=== PATIENT | male | born 1990 | race Caucasian/White ===

== ENCOUNTER 2017-08-06 06:51 | Emergency (ER) | payer SELFPAY ==
[2017-08-06 07:39] LABS: Absolute Lymphocytes (CBC) 1.7 K/uL (0.7-4.9); Absolute Monocytes 0.5 K/uL (0.1-1.3); Basophils % 1.3 % (0-1.3); Eosinophils % 6.3 % (0-4.4); Hematocrit 43.1 % (39.6-49.0); Lymphocytes % 31.2 % (15.3-44.8); MCV 89.5 fL (80-100); MPV 7.6 fL (7.6-11.3); Monocytes % 8.1 % (3.3-12.3); RBC Red Blood Cell Count 4.81 M/uL (4.33-5.43)
[2017-08-06] MEDS ORDERED: NA CHLORIDE 0.9% 1,000 ML ONE ×2 (08:19→10:09)
[2017-08-06 09:05] LABS: Bicarbonate 27 mEq/L (21-31); Glucose Level 101 mg/dL (65-120); Potassium 3.7 mEq/L (3.6-5.0); Sodium Level 140 mEq/L (135-145)
[2017-08-06 09:11] LABS: ALT/SGPT 77 IU/L (10-60); AST/SGOT 60 IU/L (10-42); Albumin 3.6 g/dL (3.2-5.5); Alkaline Phosphatase 152 IU/L (42-121); BUN Blood Urea Nitrogen 8 mg/dL (6-20); Bilirubin Direct 0.1 mg/dL (0-0.2); Bilirubin Total 0.3 mg/dL (0.3-1.2); Protein, Total 8.5 g/dL (6.0-8.3)
[2017-08-06 09:25] LABS: Alcohol Serum/Plasma 272 mg/dl
[2017-08-06 09:58] LABS: Urine Blood NEGATIVE (NEG); Urine Glucose NEGATIVE (NEG); Urine Protein NEGATIVE (NEG); Urine Specific Gravity 1.025 (1.005-1.030); Urine pH 5.5 (5.0-7.0)
[2017-08-06 10:02] LABS: Barbiturates NEGATIVE; Benzodiazepines NEGATIVE; Cocaine NEGATIVE; METHAMPHETAM NEGATIVE; Opiates NEGATIVE; Phencyclidine NEGATIVE; THC Cannibis NEGATIVE
--- NOTE | 2017-08-06 16:16 | ER ---
Nurse's Notes [facility] Name: Lobito Pack Age: 26 yrs Sex: Male : 1990 Arrival Date: 08/06/2017 Time: 06:52 Bed 17 Private MD: Diagnosis: Suicidal ideations;Major depressive disorder, recurrent Presentation: 08/06 06:56 Presenting complaint: EMS states: "Patient called [facility] department due to having bs1 suicidal thoughts, planning for a month now, after taking 6 beers, patient has a hx of anxiety and recently diagnosed with pericarditis on Saturday.". Transition of care: patient was not received from another setting of care. Onset of symptoms was August 06, 2017. Care prior to arrival: None. 06:56 Method Of Arrival: EMS: [facility] bs1 06:56 Acuity: LEON 2 bs1 Triage Assessment: 07:06 General: Appears in no apparent distress. comfortable, Behavior is cooperative, quiet. ch Pain: Denies pain. Neuro: No deficits noted. Level of Consciousness is awake, alert, obeys commands, Oriented to person, place, time, situation, Planer Setter are equal bilaterally Moves all extremities. Full function Gait is steady, Speech is normal, Facial symmetry appears normal, Facial symmetry: tongue is midline, Pupils are PERRLA, Reports pt states he wants to kill himself, it has not gotten any better since he was last here. [facility] cannot see him till september 16. pt states he would take a 38 and shoot himself, but he didn't want his sister to find that. so then he would go to work and jump off the top of a tower. pt has not been taking his medications, states "they were distroyed". Respiratory: Airway is patent Respiratory effort is even, unlabored. GI: No signs and/or symptoms were reported involving the gastrointestinal system. Derm: Skin is pink, warm \\T\\ dry. 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 - Social history:: Smoking status: Patient uses tobacco products, 4 cigs per day. Screenin:52 Abuse screen: Denies threats or abuse. Denies injuries from another. Nutritional ch screening: No deficits noted. Tuberculosis screening: No symptoms or risk factors identified. Fall Risk None identified. Assessment: 07:14 Reassessment: Report given to RONA Gallardo. bs1 08:40 Reassessment: Patient appears in no apparent distress at this time. Patient and/or ch family updated on plan of care and expected duration. Pain level reassessed. Patient is alert, oriented x 3, equal unlabored respirations, skin warm/dry/pink. 08:41 Reassessment: pt states after eating breakfast and drinking some water that he feels ch better and wants to be discharged to his sister so that he does not lose his job. Ernesto notified, states he will talk to the pt again. 08:51 Reassessment: Patient appears in no apparent distress at this time. pt has tried to ch urinate twice, unsuccessfully. pt given fluid bolus per Ernesto. Ernesto speaks with pt, given how pt has a gun in his home and has a plan,, he does not feel comfortable discharging pt. pt verb understanding. awaiting urine sample to contact [facility]. 10:18 Reassessment: Patient appears in no apparent distress at this time. Patient and/or ch family updated on plan of care and expected duration. Pain level reassessed. Patient is alert, oriented x 3, equal unlabored respirations, skin warm/dry/pink. pt sleeping in room, awaiting pt etoh repeat prior to calling autopsy pathologist. will repeat etoh level around 1400. 12:26 Reassessment: Patient appears in no apparent distress at this time. No changes from previously documented assessment. Patient and/or family updated on plan of care and expected duration. Pain level reassessed. Patient is alert, oriented x 3, equal unlabored respirations, skin warm/dry/pink. 15:25 Reassessment: Patient appears in no apparent distress at this time. Patient and/or ch family updated on plan of care and expected duration. Pain level reassessed. Patient is alert, oriented x 3, equal unlabored respirations, skin warm/dry/pink. [facility] autopsy pathologist in room with pt. ernesto and autopsy pathologist speak with pt again. family contacted to verify if there is a gun or access to a gun in the house. pt remains on suicide precautions till ernesto states he can come off it. 16:13 Reassessment: Patient appears in no apparent distress at this time. Patient and/or ch family updated on plan of care and expected duration. Pain level reassessed. Patient is alert, oriented x 3, equal unlabored respirations, skin warm/dry/pink. pt denies SI or HI right now. family at bedside. gun is not in the home Ernesto at bedside speaking with pt. Patient states feeling better. Patient states symptoms have improved. Vital Signs: 07:06 BP 127 / 89; Pulse 85; Resp 16; Temp 98.1(O); Pulse Ox 100% on R/A; Weight 95.25 kg; bs1 Height 5 ft. 9 in. (175.26 cm); Pain 0/10; 08:41 BP 116 / 78; Pulse 81; Resp 16; Temp 98.5; Pulse Ox 99% on R/A; Pain 0/10; ch 12:27 BP 112 / 62; Pulse 76; Resp 18; Temp 97.9; Pulse Ox 98% on R/A; Pain 0/10; ch 16:13 BP 137 / 82; Pulse 88; Resp 16; Temp 98.5; Pulse Ox 99% on R/A; Pain 0/10; ch 07:06 Body Mass Index 31.01 (95.25 kg, 175.26 cm) bs1 ED Course: 06:52 Patient arrived in ED. bs1 06:56 Ernesto Jeffries PA is PHCP. jr8 06:56 Aakash Beard MD is Attending Physician. jr8 06:58 Triage completed. bs1 07:00 No apparent distress. Resting quietly. Safety Checks: Personal items have been removed ch The door is open or patient has been placed in a hallway bed/chair. There are no family/friend visitors at this time. 07:04 Inserted saline lock: 18 gauge in right antecubital area, using aseptic technique. lp1 Blood collected. 07:06 Hannah Altman RN is Primary Nurse. ch 07:06 Arm band placed on left wrist. Patient placed in an exam room, on a stretcher. ch 07:15 Safety Checks: Personal items have been removed The door is open or patient has been ch placed in a hallway bed/chair. There are no family/friend visitors at this time. 07:26 Attending Physician role handed off by Aakash Beard MD jr8 07:26 Sean Angela MD is Attending Physician. jr8 07:30 Safety Checks: Personal items have been removed The door is open or patient has been ch placed in a hallway bed/chair. There are no family/friend visitors at this time. 07:45 Safety Checks: Personal items have been removed The door is open or patient has been ch placed in a hallway bed/chair. There are no family/friend visitors at this time. 08:00 Safety Checks: Personal items have been removed The door is open or patient has been ch placed in a hallway bed/chair. There are no family/friend visitors at this time. 08:15 Safety Checks: Personal items have been removed The door is open or patient has been ch placed in a hallway bed/chair. There are no family/friend visitors at this time. 08:30 Safety Checks: Personal items have been removed The door is open or patient has been ch placed in a hallway bed/chair. There are no family/friend visitors at this time. 08:45 Safety Checks: Personal items have been removed The door is open or patient has been ch placed in a hallway bed/chair. There are no family/friend visitors at this time. 08:52 No provider procedures requiring assistance completed. 08:52 Patient has correct armband on for positive identification. Placed in gown. Bed in low ch position. Call light in reach. Side rails up X 1. 09:00 No apparent distress. Resting quietly. Safety Checks: Personal items have been removed ch The door is open or patient has been placed in a hallway bed/chair. There are no family/friend visitors at this time. 09:15 Safety Checks: Personal items have been removed The door is open or patient has been ch placed in a hallway bed/chair. There are no family/friend visitors at this time. 09:30 Safety Checks: Personal items have been removed The door is open or patient has been ch placed in a hallway bed/chair. There are no family/friend visitors at this time. 09:45 Safety Checks: Personal items have been removed The door is open or patient has been ch placed in a hallway bed/chair. There are no family/friend visitors at this time. 10:00 Safety Checks: Personal items have been removed The door is open or patient has been ch placed in a hallway bed/chair. There are no family/friend visitors at this time. 10:15 Safety Checks: Personal items have been removed The door is open or patient has been ch placed in a hallway bed/chair. There are no family/friend visitors at this time. 10:30 Safety Checks: Personal items have been removed The door is open or patient has been ch placed in a hallway bed/chair. There are no family/friend visitors at this time. 10:45 Safety Checks: Personal items have been removed The door is open or patient has been ch placed in a hallway bed/chair. There are no family/friend visitors at this time. 11:00 Safety Checks: Personal items have been removed The door is open or patient has been ch placed in a hallway bed/chair. There are no family/friend visitors at this time. 11:15 Safety Checks: Personal items have been removed The door is open or patient has been ch placed in a hallway bed/chair. There are no family/friend visitors at this time. 11:30 Safety Checks: Personal items have been removed The door is open or patient has been ch placed in a hallway bed/chair. There are no family/friend visitors at this time. 11:45 Safety Checks: Personal items have been removed The door is open or patient has been ch placed in a hallway bed/chair. There are no family/friend visitors at this time. 12:00 Safety Checks: Personal items have been removed The door is open or patient has been ch placed in a hallway bed/chair. There are no family/friend visitors at this time. 12:15 Safety Checks: Personal items have been removed The door is open or patient has been ch placed in a hallway bed/chair. There are no family/friend visitors at this time. 12:30 Safety Checks: Personal items have been removed The door is open or patient has been ch placed in a hallway bed/chair. There are no family/friend visitors at this time. 12:45 Safety Checks: Personal items have been removed The door is open or patient has been ch placed in a hallway bed/chair. There are no family/friend visitors at this time. 13:00 Safety Checks: Personal items have been removed The door is open or patient has been ch placed in a hallway bed/chair. There are no family/friend visitors at this time. 13:15 Safety Checks: Personal items have been removed The door is open or patient has been ch placed in a hallway bed/chair. There are no family/friend visitors at this time. 13:30 Safety Checks: Personal items have been removed The door is open or patient has been ch placed in a hallway bed/chair. There are no family/friend visitors at this time. 13:45 Safety Checks: Personal items have been removed The door is open or patient has been ch placed in a hallway bed/chair. There are no family/friend visitors at this time. 14:00 Safety Checks: Personal items have been removed The door is open or patient has been ch placed in a hallway bed/chair. There are no family/friend visitors at this time. 14:15 Safety Checks: Personal items have been removed The door is open or patient has been ch placed in a hallway bed/chair. There are no family/friend visitors at this time. 14:30 Safety Checks: Personal items have been removed The door is open or patient has been ch placed in a hallway bed/chair. There are no family/friend visitors at this time. 14:45 Safety Checks: Personal items have been removed The door is open or patient has been ch placed in a hallway bed/chair. There are no family/friend visitors at this time. 15:00 Safety Checks: Personal items have been removed The door is open or patient has been ch placed in a hallway bed/chair. 15:15 Safety Checks: Personal items have been removed The door is open or patient has been ch placed in a hallway bed/chair. There are no family/friend visitors at this time. 15:30 Safety Checks: Personal items have been removed The door is open or patient has been ch placed in a hallway bed/chair. There are no family/friend visitors at this time. 15:42 Safety Checks: Personal items have been removed The door is open or patient has been ch placed in a hallway bed/chair. There are no family/friend visitors at this time. 16:15 IV discontinued, intact, bleeding controlled, No redness/swelling at site. Pressure ch dressing applied. Administered Medications: 08:51 Drug: NS 0.9% 1000 ml Route: IV; Rate: 1 bolus; Site: right antecubital; ch 10:18 Drug: NS 0.9% 1000 ml Route: IV; Rate: 125 ml/hr; Site: right antecubital; Outcome: 16:15 Discharge ordered by MD. ngo 16:20 Discharged to home ambulatory, with family. 16:20 Condition: stable 16:20 Discharge instructions given to patient, family, Instructed on discharge instructions, follow up and referral plans. Demonstrated understanding of instructions, follow-up care. 16:21 Patient left the ED. Signatures: Hannah Altman RN RN Jade Ricketts RN RN lp1 Ernesto Jeffries PA PA jr8 Kylee Aguirre RN RN bs1 Corrections: (The following items were deleted from the chart) 06:59 06:56 Presenting complaint: EMS states: "Patient called EMS due to having suicidal bs1 thoughts after taking 6 beers, patient has a hx of anxiety and recently diagnosed with pericarditis on Saturday." bs1 07:07 06:56 Presenting complaint: EMS states: "Patient called [facility] due to bs1 having suicidal thoughts after taking 6 beers, patient has a hx of anxiety and recently diagnosed with pericarditis on Saturday." bs1
--- NOTE | 2017-08-06 16:16 | EDPHYS ---
Physician Documentation [facility] Name: Lobito Pack Age: 26 yrs Sex: Male : 1990 Arrival Date: 08/06/2017 Time: 06:52 Bed 17 Private MD: ED Physician Sean Angela HPI: 08/06 07:26 This 26 yrs old Male presents to ER via EMS with complaints of Suicidal jr8 Ideation. 07:26 The patient presents to the emergency department with depression, a history of jr8 substance abuse, suicide ideation, and the patient has a plan, to jump from a height to shoot self. Onset: The symptoms/episode began/occurred gradually, 2 day(s) ago. Past psychiatric history: Prior diagnosis: depression. Associated signs and symptoms: The patient has no apparent associated signs or symptoms. Severity of symptoms: At their worst the symptoms were moderate in the emergency department the symptoms are unchanged. The patient has experienced similar episodes in the past, several times. The patient has not recently seen a physician. Patient stated that they other day he wanted to shoot himself with is gun but did not. Today was contemplating going to work and jumping off of the roof. Stated that he had been feeling very depressed again. Cannot get into [facility] until the 16 of September. Currently has no more of his medications . 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 - Social history:: Smoking status: Patient uses tobacco products, 4 cigs per day. ROS: 07:26 Eyes: Negative for injury, pain, redness, and discharge, ENT: Negative for injury, jr8 pain, and discharge, Neck: Negative for injury, pain, and swelling, Cardiovascular: Negative for chest pain, palpitations, and edema, Respiratory: Negative for shortness of breath, cough, wheezing, and pleuritic chest pain, Abdomen/GI: Negative for abdominal pain, nausea, vomiting, diarrhea, and constipation, Back: Negative for injury and pain, MS/Extremity: Negative for injury and deformity, Skin: Negative for injury, rash, and discoloration, Neuro: Negative for headache, weakness, numbness, tingling, and seizure. 07:26 Psych: Positive for depression, alcohol dependence, suicidal ideation. Exam: 07:26 Eyes: Pupils equal round and reactive to light, extra-ocular motions intact. Lids and jr8 lashes normal. Conjunctiva and sclera are non-icteric and not injected. Cornea within normal limits. Periorbital areas with no swelling, redness, or edema. ENT: Nares patent. No nasal discharge, no septal abnormalities noted. Tympanic membranes are normal and external auditory canals are clear. Oropharynx with no redness, swelling, or masses, exudates, or evidence of obstruction, uvula midline. Mucous membranes moist. Neck: Trachea midline, no thyromegaly or masses palpated, and no cervical lymphadenopathy. Supple, full range of motion without nuchal rigidity, or vertebral point tenderness. No Meningismus. Cardiovascular: Regular rate and rhythm with a normal S1 and S2. No gallops, murmurs, or rubs. Normal PMI, no JVD. No pulse deficits. Respiratory: Lungs have equal breath sounds bilaterally, clear to auscultation and percussion. No rales, rhonchi or wheezes noted. No increased work of breathing, no retractions or nasal flaring. Abdomen/GI: Soft, non-tender, with normal bowel sounds. No distension or tympany. No guarding or rebound. No evidence of tenderness throughout. Back: No spinal tenderness. No costovertebral tenderness. Full range of motion. Skin: Warm, dry with normal turgor. Normal color with no rashes, no lesions, and no evidence of cellulitis. MS/ Extremity: Pulses equal, no cyanosis. Neurovascular intact. Full, normal range of motion. Neuro: Awake and alert, GCS 15, oriented to person, place, time, and situation. Cranial nerves II-XII grossly intact. Motor strength 5/5 in all extremities. Sensory grossly intact. Cerebellar exam normal. Normal gait. 07:26 Psych: Behavior/mood is cooperative, suicidal, depressed, Affect is calm, Oriented to person, place, time, Patient having thoughts of suicide. Plan for suicide is see hpi Memory is normal. Delusions/hallucinations are not present. Vital Signs: 07:06 BP 127 / 89; Pulse 85; Resp 16; Temp 98.1(O); Pulse Ox 100% on R/A; Weight 95.25 kg; bs1 Height 5 ft. 9 in. (175.26 cm); Pain 0/10; 08:41 BP 116 / 78; Pulse 81; Resp 16; Temp 98.5; Pulse Ox 99% on R/A; Pain 0/10; ch 12:27 BP 112 / 62; Pulse 76; Resp 18; Temp 97.9; Pulse Ox 98% on R/A; Pain 0/10; ch 16:13 BP 137 / 82; Pulse 88; Resp 16; Temp 98.5; Pulse Ox 99% on R/A; Pain 0/10; ch 07:06 Body Mass Index 31.01 (95.25 kg, 175.26 cm) bs1 MDM: 06:56 Patient medically screened. [facility] 16:10 Data reviewed: vital signs, nurses notes, lab test result(s), and as a result, I will [facility] discharge patient. Data interpreted: Pulse oximetry: on room air is 98 %. Interpretation: normal. Counseling: I had a detailed discussion with the patient and/or guardian regarding: the historical points, exam findings, and any diagnostic results supporting the discharge/admit diagnosis, lab results, the need for outpatient follow up, a psychiatrist, to return to the emergency department if symptoms worsen or persist or if there are any questions or concerns that arise at home. 16:11 ED course: Wen wang came and evaluated patient. After patient had sobered up felt [facility] much better. Hari tucker is at [facility] since he has been having depression problems lately. Talked with both Wen Wang and Sister of patient. Both in agreement that he can go home. Patient wants to go home so he does not lose his job. Would call and f/u with Wen Wang tomorrow. Sister would insure he stays safe at home and that he follows up. Both family and patient understand that if he worsens that he would come back for transfer to psychiatric facility . 08/06 07:05 Order name: Basic Metabolic Panel; Complete Time: 09:42 jr8 08/06 07:05 Order name: CBC with Diff; Complete Time: 08:23 jr8 08/06 07:05 Order name: ETOH Level; Complete Time: 09:42 08/06 07:05 Order name: Hepatic Function; Complete Time: 09:42 08/06 07:05 Order name: Urine Drug Screen; Complete Time: 10:13 08/06 09:42 Order name: Urine Dipstick--Ancillary (enter results); Complete Time: 10:01 ag 08/06 07:05 Order name: IV Saline Lock; Complete Time: 08:51 08/06 07:05 Order name: Labs collected and sent; Complete Time: 08:51 08/06 07:05 Order name: Urine Dipstick-Ancillary (obtain specimen); Complete Time: 10:18 08/06 07:10 Order name: Diet Regular; Complete Time: 07:11 ch 08/06 10:19 Order name: ETOH Level; Complete Time: 13:41 ch 08/06 12:22 Order name: Diet Regular; Complete Time: 12:23 ch Administered Medications: 08:51 Drug: NS 0.9% 1000 ml Route: IV; Rate: 1 bolus; Site: right antecubital; 10:18 Drug: NS 0.9% 1000 ml Route: IV; Rate: 125 ml/hr; Site: right antecubital; Disposition: 17:59 Co-signature as Attending Physician, Sean Angela MD. rn Disposition: 08/06/17 16:15 Discharged to Home. Impression: Suicidal ideations, Major depressive disorder, recurrent. - Condition is Stable. - Discharge Instructions: Depression, Adult, Helping Someone Who is Suicidal. - Work release form, Medication Reconciliation Form, Thank You Letter, Antibiotic Education, Prescription Opioid Use form. - Follow up: Private Physician; When: 1 - 2 days; Reason: Recheck today's complaints, Continuance of care, Re-evaluation by your physician. - Problem is new. - Symptoms have improved. Signatures: Dispatcher [employer] Hannah Roy, RN RN Sean Castorena MD MD rn Roszak, Josh, PA PA jr8 Kylee Aguirre RN RN bs1
== END 2017-08-06 16:21 | disposition home or self-care (01) ==
LOC: ER 06:51
DX: F32.9 Major depressive disorder, single episode, unspecified (principal); M06.9 Rheumatoid arthritis, unspecified; Z88.8 Allergy status to other drugs, medicaments and biological substances
CPT/HCPCS: 36415; 80048; 80076; 80307; 80320; 81003; 85025; 99284; J7030

== ENCOUNTER 2017-08-16 11:15 | Emergency (ER) | payer SELFPAY ==
--- OUTSIDE RECORDS SUMMARY | 2017-08-16 11:20 | XMS REPORT | Clinical Summary ---
:1990 Author Organization [facility] Address [address] [place] [address] Care Team Providers Name Role Phone Asked, No Pcp Primary Care Provider Unavailable Allergies Active Allergy Reactions Severity Noted Date Comments Haloperidol Other (See Comments) 02/03/2017 Current Medications Prescription Sig. Disp. Refills Start Date End Date Status predniSONE (DELTASONE) Indications: 150 tablet 0 02/07/2017 1 mg tabletIndications: Rheumatoid 7 Rheumatoid Arthritis Arthritis. TAKE 20 MG DAILY X 5 DAYS FOR RHEUMATOID ARTHRITIS FLARE UPS gabapentin (NEURONTIN) Take 2 capsules 180 capsule 0 02/11/2017 300 mg (600 mg total) 7 capsuleIndications: by mouth 3 anxiety (three) times a day for 30 days Indications: anxiety. risperiDONE (RisperDAL) Take 1 tablet 30 tablet 0 02/11/2017 3 MG tabletIndications: (3 mg total) by 7 Schizophrenia mouth nightly for 30 days Indications: Schizophrenia. methylPREDNISolone Indications: 1 tablet 0 02/11/2017 (MEDROL DOSEPAK) 4 mg Autoimmune 7 tabletIndications: Disease. follow Autoimmune Disease package directions nicotine (NICODERM CQ) Place 1 patch 30 patch 0 02/11/2017 7 mg/24 hrIndications: on the skin 7 Smoking Cessation daily for 30 days Indications: Smoking Cessation. hydrOXYzine (ATARAX) 25 Take 1 tablet 50 tablet 0 02/11/2017 MG tabletIndications: (25 mg total) 7 Anxiety by mouth 3 (three) times a day as needed for anxiety for up to 30 days Indications: Anxiety. Active Problems Problem Noted Date Schizophrenia 02/03/2017 Encounters Date Type Specialty Care Team Description 02/03/2017 - Hospital Encounter Psychiatry Siria Bradshaw MD 02/11/2017 Ivan Kaplan MD after 08/15/2016 Social History Tobacco Use Types Packs/Day Years Used Date Never Assessed Sex Assigned at Date Recorded Not on file Last Filed Vital Signs Vital Sign Reading Time Taken Blood Pressure 135/74 02/11/2017 6:14 AM CDT Pulse 77 02/11/2017 6:14 AM CDT Temperature 36.9 C (98.4 F) 02/11/2017 6:14 AM CDT Respiratory Rate 18 02/11/2017 6:14 AM CDT Oxygen Saturation 99% 02/11/2017 6:14 AM CDT Inhaled Oxygen Concentration - - Weight 84.6 kg (186 lb 8 oz) 02/06/2017 7:00 AM CDT Height 177.8 cm (5' 10") 02/03/2017 12:47 PM CDT Body Mass Index 26.76 02/06/2017 7:00 AM CDT Plan of Treatment Health Maintenance Due Date Last Done Comments INFLUENZA VACCINE 11/27/2017 Results XR Elbow 2 Vw Left (02/07/2017 7:15 PM) Specimen Performing Laboratory [facility] [address] [address] Narrative EXAMINATION:XR ELBOW 2 VW LEFT CLINICAL HISTORY:ARTHRITISELBOW COMPARISON:None. IMPRESSION: There is a small elbow joint effusion. There are no bony changes to suggest degenerative arthritis or obvious inflammatory arthritis otherwise. Bone mineralization is normal. There is no focal bone lesion. [facility]-[id number] Procedure Note Hm Interface, Radiology Results Incoming - 02/07/2017 9:35 PM CDT EXAMINATION: XR ELBOW 2 VW LEFT CLINICAL HISTORY: ARTHRITIS ELBOW COMPARISON: None. IMPRESSION: There is a small elbow joint effusion. There are no bony changes to suggest degenerative arthritis or obvious inflammatory arthritis otherwise. Bone mineralization is normal. There is no focal bone lesion. [facility]-[id number] CT Head Wo Contrast (02/04/2017 10:53 AM) Specimen Performing Laboratory [facility] [address] [place] [address] Narrative EXAMINATION: CT HEAD WO CONTRAST CLINICAL HISTORY: INTRACRANIAL INJURY WITHOUT FRACTURE COMPARISON:None TECHNIQUE: Noncontrast enhanced images of the brain were obtained from the skull base to the vertex. Both soft tissue and bone reconstruction algorithms were performed.CT imaging was performed with iterative reconstruction technique and/or automated exposure control to reduce radiation dose. FINDINGS: The brain parenchyma has no acute lesion. The solis-white matter differentiation is preserved. No evidence of acute intra or extra-axial hemorrhage, mass, mass effect or acute territorial infarction. There is no acute hydrocephalus. Basal cisterns are patent. Incidentally, there is an oval-shaped lesion in the superficial lobe of the left parotid gland, measuring approximately 10 mm in diameter. It has fluid density. Please consider ultrasound for additional evaluation. There is also a dense area in the superficial lobe of the right parotid gland, measuring approximately 4 mm in diameter, nonspecific, and which may also be further evaluated with ultrasound. No acute soft tissue hematoma or laceration. Paranasal sinuses shows no acute air-fluid levels.Minimal inflammatory mucosal thickening in the right frontal sinus. Mastoid air cells are clear.No skull fractures or aggressive bony lesions. IMPRESSION: No acute intracranial abnormality identified. Incidental lesion in the superficial lobe of the left parotid gland, with fluid density. This may be further evaluated with ultrasound. Please see above for additional pertinent findings, details and comments. [id number] Procedure Note Interface, Radiology Results Incoming - 02/04/2017 11:02 AM CDT EXAMINATION: CT HEAD WO CONTRAST CLINICAL HISTORY: INTRACRANIAL INJURY WITHOUT FRACTURE COMPARISON: None TECHNIQUE: Noncontrast enhanced images of the brain were obtained from the skull base to the vertex. Both soft tissue and bone reconstruction algorithms were performed. CT imaging was performed with iterative reconstruction technique and/or automated exposure control to reduce radiation dose. FINDINGS: The brain parenchyma has no acute lesion. The solis-white matter differentiation is preserved. No evidence of acute intra or extra-axial hemorrhage, mass, mass effect or acute territorial infarction. There is no acute hydrocephalus. Basal cisterns are patent. Incidentally, there is an oval-shaped lesion in the superficial lobe of the left parotid gland, measuring approximately 10 mm in diameter. It has fluid density. Please consider ultrasound for additional evaluation. There is also a dense area in the superficial lobe of the right parotid gland, measuring approximately 4 mm in diameter, nonspecific, and which may also be further evaluated with ultrasound. No acute soft tissue hematoma or laceration. Paranasal sinuses shows no acute air-fluid levels. Minimal inflammatory mucosal thickening in the right frontal sinus. Mastoid air cells are clear. No skull fractures or aggressive bony lesions. IMPRESSION: No acute intracranial abnormality identified. Incidental lesion in the superficial lobe of the left parotid gland, with fluid density. This may be further evaluated with ultrasound. Please see above for additional pertinent findings, details and comments. [id number] Urine drugs of abuse screen (02/04/2017 8:00 AM) Component Value Ref Range Amphetamine screen, urine Positive (A) Barbiturate screen, urine Negative Benzodiazepine screen, urine Negative Cannabinoid screen, urine Negative Cocaine screen, urine Negative Methadone metabolite (EDDP), urine Negative Opiates screen, urine Negative Oxycodone screen, urine Negative Phencyclidine screen, urine Negative Tricyclic screen, urine Negative Comment: Drug screen minimum concentration of detectability Oiudzewvxpay3653 ng/mL Barbiturates 200 ng/mL Pxsevspatmbnjma801 ng/mL Hyjabuq615 ng/mL Miclyuutk666 ng/mL Jxxegyc554 ng/mL Tewgivhtf897 ng/mL Phencyclidine 25 ng/mL Czkexqvyvjns98 ng/mL Wacfacxcgo5908 ng/mL Negative test results indicates presumptive evidence of lack of clinically significant drug concentration in this urine specimen. Positive test results are presumptive evidence of clinically significant drug concentration in this urine specimen. Testing performed for medical purposes only. Specimen Performing Laboratory Urine [facility] DEPARTMENT OF PATHOLOGY AND GENOMIC MEDICINE [address] [place] [id number] Syphilis treponemal IgG (02/04/2017 6:00 AM) Component Value Ref Range Syphilis treponemal IgG Non-reactiveComment: Non-reactive: No Non-reactive serological evidence of Syphilis infection Specimen Performing Laboratory Serum [facility] DEPARTMENT OF PATHOLOGY AND [facility] MEDICINE [address] [place] [address] Thyroid stimulating hormone (02/04/2017 6:00 AM) Component Value Ref Range TSH 2.25 0.27 - 4.20 uIU/mL Specimen Performing Laboratory Plasma specimen [facility] DEPARTMENT OF PATHOLOGY AND GENOMIC MEDICINE [address] [place] [address] Hemoglobin A1c (02/04/2017 6:00 AM) Component Value Ref Range Hemoglobin A1C 5.2 4.0 - 5.6 % Comment: HbA1c cutoffs for diagnosing diabetes: 4.0% - 5.6%=normal 5.7% - 6.4%=increased risk for diabetes (prediabetes) >=6.5%=diabetes Goals for glycemic control (ADA 2016) < 7.0%Target for non adults with diabetes. More or less stringent targets may be appropriate for individual patients. <7.5% Target for Children and adolescents with type 1 diabetes. Specimen Performing Laboratory Blood [facility] DEPARTMENT OF PATHOLOGY AND [facility] MED[facility] [address] [place] [address] Hepatic function panel (02/04/2017 6:00 AM) Component Value Ref Range Albumin 3.2 (L) 3.5 - 5.0 g/dL Total bilirubin 0.4 0.0 - 1.2 mg/dL Bilirubin direct <0.2 0.0 - 0.3 mg/dL Alkaline phosphatase 91 40 - 129 U/L Protein 7.5 6.3 - 8.3 g/dL Comment: 4.6-7.0 g/dL 1 week 4.4-7.6 g/dL 7 months-1year5.1-7.3 g/dL 1-2 years5.6-7.5 g/dL >3 years6.0-8.0 g/dL 18-150 6.3-8.3 g/dL ALT 47 5 - 50 U/L AST 36 10 - 50 U/L Specimen Performing Laboratory Plasma specimen [facility] DEPARTMENT OF PATHOLOGY AND GENOMIC MEDICINE [address] [place] [id number] Lipid panel (02/04/2017 6:00 AM) Component Value Ref Range Cholesterol 113 <200 mg/dL Triglycerides 62 <150 mg/dL HDL cholesterol 38 (L) >40 mg/dL LDL cholesterol 69Comment: Result obtained by direct LDL <100 mg/dL measurement Lipid panel interpretation SeeBelow Comment: Total Cholesterol (mg/dL) <200 Desirable 557-232Qdrzvrhgdf-zdyl >=240High Triglycerides (mg/dL) <150 Normal 959-073Bxeulfdsyr-cgsj 200-499High >=500Very high HDL Cholesterol (mg/dL) <40Low (male) <40Low (female) LDL Cholesterol (mg/dL) <100 Optimal 100-129Near or above optimal 370-260Ubjzoxvtxy-tvno 160-189High >=190Very high Risk Catergories that modify LDL goals. Risk CatergoriesLDL goal (mg/dL) CHD and CHD risk equivalent<100 (10-year risk >20%) Multiple (2+) risk factors <130 (10-year risk=<20%) 0-1 risk factors <160 (<10-year risk) Defining levels of lipids in metabolic syndrome Triglycerides>=150 mg/dL HDL Cholesterol Men<40 mg/dL Women<40 mg/dL Non-HDL cholesterol is a second target for therapy in persons with high triglycerides (>=200 mg/dL) Specimen Performing Laboratory Plasma specimen [facility] DEPARTMENT OF PATHOLOGY AND GENOMIC MEDICINE [address] [place] [address] ECG 12 lead (02/03/2017 7:34 PM) Component Value Ref Range Ventricular rate 79 Atrial rate 79 IL interval 146 QRSD interval 98 QT interval 388 QTC interval 444 P axis 1 59 QRS axis 1 79 T wave axis 70 EKG impression Normal sinus rhythm-Normal ECG-No previous ECGs available- Specimen Performing Laboratory [facility] [address] [place] [address] after 08/15/2016
--- OUTSIDE RECORDS SUMMARY | 2017-08-16 11:21 | XMS REPORT ---
:1990 Author Organization [facility] Address [address] [place] [address] Care Team Providers Name Role Phone UNKNOWN, REFFERING Primary Care Provider Unavailable NIKO ROSADO M.D. Unavailable Unavailable Problems This patient has no known problems. Allergies, Adverse Reactions, Alerts This patient has no known allergies or adverse reactions. Medications This patient has no known medications. Encounters Start End Encounter Admission Attending Care Care Encounter Date/Time Date/Time Type Type Clinicians Facility Department ID 2017-04-15 2017-04-19 [id number]:43:00 14:07:00 NIKO Jean M.D. Results Test Description Test Time Test Comments Text Results Atomic Results Result Comments RPR, Qual 2017-04-16 15:32:00 Test Item Value Reference Range Comments RPR (test code=RPR) Non-Reactive Non-Reactive Lipid [id number] 09:41:00 Test Item Value Reference Range Comments Cholesterol (test 155 mg/dL 0-200 code=CHOL) Triglycerides (test 137 mg/dL 9-200 code=TRIG) HDL (test code=HDL) 40 mg/dL 40-60 Chol/HDL (test 3.9 Ratio 0.0-5.0 code=CHOLPHDL) LDL, Calculated (test 88 0-130 (NOTE)RISK OF HEART code=LDLC) DISEASEPublished by [place] Heart AssociationAnalyte Optimal Boderline Increased RiskCHOL <200 200-239 >240TRIG <150 150-199 >200HDL Male: >60 <40HDL Female: >60 <50LDL <100 130-159 >160LDL NEAR OPTIMAL IS 100-129 VLDL (test code=VLDL) 27 mg/dL 5-40 LDL/HDL (test code=LDLPHDL) 2 Thyroid Stimulating Hormone (TSH)2017-04-16 09:25:00 Test Item Value Reference Range Comments TSH (test code=TSH) 2.86 mIU/mL 0.270-4.200 Alcohol/Ethanol, [id number] 08:01:00 Test Item Value Reference Range Comments Alcohol, Ethyl (test 0.14 g/dL 0.00-0.01 Intoxicated 0.080 g/dL or code=ETOH) more [id number] 04:28:00 Test Item Value Reference Range Comments Amphetamine (test code=AMPH) Negative Negative For diagnostic purposes only, positive results should always be assessedin conjunctionwith the patient's medical history,clinical examination and otherfindings.To fulfill legal requirements, a more specific alternate chemical methodmust be used inorder to obtain a Confirmed analytical result. GC/MS is the preferred confirmatory method. Barbiturates (test code=STANISLAW) Negative Negative Benzodiazepine (test Negative Negative code=SUDHIR) Cocaine (test code=COCA) POSITIVE Negative Methadone (test code=MTHD) Negative Negative Opiates (test code=OPIA) Negative Negative PCP (test code=PCP) Negative Negative Propoxyphene (test Negative Negative code=PROPOX) THC (test code=THC) Negative Negative Alcohol, Urine (test 0.32 g/dL 0.00-0.01 danny rblv code=ETOHU) Urinalysis [id number] 04:17:00 Test Item Value Reference Range Comments Color (test code=COLOR) Yellow Yellow,Straw,Pl yellow Clarity (test code=CLAR) Clear Clear Specific Pierce (test code=SPGR) 1.013 1.001-1.035 pH (test code=PH) 5.0 5.0-9.0 Ketone (test code=KET) Negative mg/dL Negative Glucose (test code=GLUCUR) Negative mg/dL Negative Protein (test code=PROT) Negative mg/dL Negative Bilirubin (test code=BILI) Negative mg/dL Negative Occult Blood (test code=UDOB) Small Negative Urobilinogen (test code=UROB) 0.2 mg/dL 0.2-1.0 Nitrite (test code=NIT) Negative Negative Leuk Esterase (test code=LEUK) Negative Negative Micros Exam (test code=MEXAM) Indicated Epithelial Cells (test code=EPI) Few /LPF 0-30 WBC, Urine (test code=UWBC) 0-5 /HPF 0-5 RBC, Urine (test code=URBC) 11-20 /HPF 0-5 Bacteria (test code=BACT) Few /HPF Comprehensive Metabolic [id number] 03:15:00 Test Item Value Reference Range Comments Sodium (test code=NA) 143 mmol/L 135-145 Potassium (test code=K) 3.9 mmol/L 3.5-5.1 Chloride (test code=CL) 102 mmol/L 98-105 Carbon Dioxide (test 28 mmol/L 22-29 code=CO2) Glucose (test code=GLU) 92 mg/dL 70-115 Blood Urea Nitrogen 8 mg/dL 6-20 (test code=BUN) Creatinine (test 0.9 mg/dL 0.7-1.2 code=CREAT) Calcium (test code=CA) 8.7 mg/dL 8.3-10.5 Prot Total (test 8.7 g/dL 6.4-8.3 code=TP) Albumin (test code=ALB) 4.3 g/dL 3.5-5.2 A/G Ratio (test 1.0 Ratio code=AGRATIO) Globulin (test 4.4 2.9-3.1 code=GLOB) Bili Total (test 0.3 mg/dL 0.1-0.9 code=TBIL) Alk Phos (test 162 U/L 40-129 code=APHOS) AST (test code=AST) 51 U/L 1-40 ALT (test code=ALT) 69 U/L 1-41 BUN/Creatinine Ratio 8.9 (test code=BCRATIO) Anion Gap (test 13 mmol/L 7-16 code=AGAP) Estimated GFR (test >60 eGFR (estimated Glomerular code=GFR) mL/min/1.73m2 Filtration Rate) is an estimated value,calculated from the patient's serum creatinine using the MDRD equation.It is NOT the patient's actual GFR. The eGFR provides a more clinicallyuseful measure of kidney disease than serum creatinine alone.This calculation takes sex and race into account, if the informationis provided. If the race is not provided, and the patient isAfrican-Omani, multiply by 1.212. If sex is not provided, and thepatient is female, multiply by 0.742. Results for patients <18 years ofage have not been validated by the MDRD study and should be interpretedwith caution.eGFR Result Interpretation:eGFR > or=60 is in the Normal RangeeGFR < 60 may mean kidney diseaseeGFR < 15 may mean kidney failureRanges recommended by the National Kidney Foundation,http://nkdep.ni h.gov CBC with [id number] 03:12:00 Test Item Value Reference Range Comments WBC (test code=WBC) 4.3 K/cumm 4.4-10.5 RBC (test code=RBC) 4.83 M/cumm 4.10-5.70 Hemoglobin (test code=HGB) 14.8 gm/dL 13.4-17.4 Hematocrit (test code=HCT) 44.7 % 38.7-52.0 MCV (test code=MCV) 92.5 fL 80-100 MCH (test code=MCH) 30.7 pg 27.0-32.5 MCHC (test code=MCHC) 33.2 g/dL 32.0-37.5 RDW (test code=RDW) 13.0 % 11.5-14.5 Platelet Count (test code=PLTCT) 247 K/cumm 140-440 MPV (test code=MPV) 6.7 fL Diff Method (test code=DIFFM) Auto Neutrophil (test code=NEUT) 42.4 % 36-70 Lymphocyte (test code=LYMPH) 37.0 % 12-44 Monocyte (test code=MONO) 9.2 % 0-11 Eosinophil (test code=EOS) 9.8 % 0-7 Basophil (test code=BASO) 1.6 % 0-2 Neutro Abs (test code=ANEUT) 1.8 K/cumm 1.6-7.4 Lymph Abs (test code=ALYMPH) 1.6 K/cumm 0.5-4.6 [place] Abs (test code=AMONO) 0.4 K/cumm 0.0-1.2 Eos Abs (test code=AEOS) 0.42 K/cumm 0.00-0.74 Baso Abs (test code=ABASO) 0.1 K/cumm 0.00-0.21 C difficile Toxins [id number] 09:05:00Specimen: StoolCollected: 01/10/2017 07 :00 Status: Final Last Updated: 01/11/2017 09:05 C DIFF TOXIN (Final) ( Final) 01/11/17 No Clostridium difficile toxin presentGlycosylated [id number] 08:05:00 Test Item Value Reference Range Comments HBA1c (test code=HBA1C) 4.8 % 4.8-5.9 RPR, [id number] 18:31:00 Test Item Value Reference Range Comments RPR (test code=RPR) Non-Reactive Non-Reactive Thyroid Stimulating Hormone (TSH)2017-01-01 10:37:00 Test Item Value Reference Range Comments TSH (test code=TSH) 1.85 mIU/mL 0.270-4.200 Lipid [id number] 10:34:00 Test Item Value Reference Range Comments Cholesterol (test 156 mg/dL 0-200 code=CHOL) Triglycerides (test 159 mg/dL 9-200 code=TRIG) HDL (test code=HDL) 47 mg/dL 40-60 Chol/HDL (test 3.3 Ratio 0.0-5.0 code=CHOLPHDL) LDL, Calculated (test 77 0-130 (NOTE)RISK OF HEART code=LDLC) DISEASEPublished by [place] Heart AssociationAnalyte Optimal Boderline Increased RiskCHOL <200 200-239 >240TRIG <150 150-199 >200HDL Male: >60 <40HDL Female: >60 <50LDL <100 130-159 >160LDL NEAR OPTIMAL IS 100-129 VLDL (test code=VLDL) 32 mg/dL 5-40 LDL/HDL (test code=LDLPHDL) 2 Alcohol/Ethanol, [id number] 09:59:00 Test Item Value Reference Range Comments Alcohol, Ethyl (test 0.09 g/dL 0.00-0.01 Intoxicated 0.080 g/dL or code=ETOH) more CBC with [id number] 02:40:00 Test Item Value Reference Range Comments WBC (test code=WBC) 4.7 K/cumm 4.4-10.5 RBC (test code=RBC) 4.66 M/cumm 4.10-5.70 Hemoglobin (test code=HGB) 14.5 gm/dL 13.4-17.4 Hematocrit (test code=HCT) 42.5 % 38.7-52.0 MCV (test code=MCV) 91.1 fL 80-100 MCH (test code=MCH) 31.0 pg 27.0-32.5 MCHC (test code=MCHC) 34.1 g/dL 32.0-37.5 RDW (test code=RDW) 12.3 % 11.5-14.5 Platelet Count (test code=PLTCT) 235 K/cumm 140-440 MPV (test code=MPV) 7.3 fL Diff Method (test code=DIFFM) Auto Neutrophil (test code=NEUT) 50.6 % 36-70 Lymphocyte (test code=LYMPH) 33.9 % 12-44 Monocyte (test code=MONO) 7.3 % 0-11 Eosinophil (test code=EOS) 7.1 % 0-7 Basophil (test code=BASO) 1.1 % 0-2 Neutro Abs (test code=ANEUT) 2.4 K/cumm 1.6-7.4 Lymph Abs (test code=ALYMPH) 1.6 K/cumm 0.5-4.6 [place] Abs (test code=AMONO) 0.3 K/cumm 0.0-1.2 Eos Abs (test code=AEOS) 0.33 K/cumm 0.00-0.74 Baso Abs (test code=ABASO) 0.1 K/cumm 0.00-0.21 [id number] 02:39:00 Test Item Value Reference Range Comments Amphetamine (test code=AMPH) Negative Negative For diagnostic purposes only, positive results should always be assessedin conjunctionwith the patient's medical history,clinical examination and otherfindings.To fulfill legal requirements, a more specific alternate chemical methodmust be used inorder to obtain a Confirmed analytical result. GC/MS is the preferred confirmatory method. Barbiturates (test code=STANISLAW) Negative Negative Benzodiazepine (test Negative Negative code=SUDHIR) Cocaine (test code=COCA) Negative Negative Methadone (test code=MTHD) Negative Negative Opiates (test code=OPIA) Negative Negative PCP (test code=PCP) Negative Negative Propoxyphene (test Negative Negative code=PROPOX) THC (test code=THC) Negative Negative Alcohol, Urine (test 0.45 g/dL 0.00-0.01 READ BACK LAB VALUESVERIFIED code=ETOHU) BY REPEAT TESTINGKeena @238am 01/01/2017 [facility] [place] [facility] [id number] 02:36:00 Test Item Value Reference Range Comments Sodium (test code=NA) 141 mmol/L 135-145 Potassium (test code=K) 3.9 mmol/L 3.5-5.1 Chloride (test code=CL) 105 mmol/L 98-105 Carbon Dioxide (test 24 mmol/L 22-29 code=CO2) Glucose (test code=GLU) 160 mg/dL 70-115 Blood Urea Nitrogen 6 mg/dL 6-20 (test code=BUN) Creatinine (test 0.9 mg/dL 0.7-1.2 code=CREAT) Calcium (test code=CA) 8.8 mg/dL 8.3-10.5 Prot Total (test 8.5 g/dL 6.4-8.3 code=TP) Albumin (test code=ALB) 4.2 g/dL 3.5-5.2 A/G Ratio (test 1.0 Ratio code=AGRATIO) Globulin (test 4.3 2.9-3.1 code=GLOB) Bili Total (test 0.3 mg/dL 0.1-0.9 code=TBIL) Alk Phos (test 143 U/L 40-129 code=APHOS) AST (test code=AST) HEMO U/L 1-40 ALT (test code=ALT) 68 U/L 1-41 BUN/Creatinine Ratio 6.7 (test code=BCRATIO) Anion Gap (test 12 mmol/L 7-16 code=AGAP) Estimated GFR (test >60 eGFR (estimated Glomerular code=GFR) mL/min/1.73m2 Filtration Rate) is an estimated value,calculated from the patient's serum creatinine using the MDRD equation.It is NOT the patient's actual GFR. The eGFR provides a more clinicallyuseful measure of kidney disease than serum creatinine alone.This calculation takes sex and race into account, if the informationis provided. If the race is not provided, and the patient isAfrican-Omani, multiply by 1.212. If sex is not provided, and thepatient is female, multiply by 0.742. Results for patients <18 years ofage have not been validated by the MDRD study and should be interpretedwith caution.eGFR Result Interpretation:eGFR > or=60 is in the Normal RangeeGFR < 60 may mean kidney diseaseeGFR < 15 may mean kidney failureRanges recommended by the National Kidney Foundation,http://nkdep.ni h.gov Urinalysis [id number] 02:17:00 Test Item Value Reference Range Comments Color (test code=COLOR) Yellow Yellow,Straw,Pl yellow Clarity (test code=CLAR) Clear Clear Specific Pierce (test code=SPGR) 1.010 1.001-1.035 pH (test code=PH) 5.0 5.0-9.0 Ketone (test code=KET) Negative mg/dL Negative Glucose (test code=GLUCUR) Negative mg/dL Negative Protein (test code=PROT) Negative mg/dL Negative Bilirubin (test code=BILI) Negative mg/dL Negative Occult Blood (test code=UDOB) Negative Negative Urobilinogen (test code=UROB) 0.2 mg/dL 0.2-1.0 Nitrite (test code=NIT) Negative Negative Leuk Esterase (test code=LEUK) Negative Negative Micros Exam (test code=MEXAM) Not indicated
[2017-08-16 12:17] LABS: Absolute Lymphocytes (CBC) 0.9 K/uL (0.7-4.9); Absolute Monocytes 0.8 K/uL (0.1-1.3); Absolute Neutrophil 3.7 K/uL (1.8-8.0); Eosinophils % 4.9 % (0-4.4); Hematocrit 38.4 % (39.6-49.0); Lymphocytes % 15.5 % (15.3-44.8); MCH 30.2 pg (27.0-35.0); MCV 88.5 fL (80-100); MPV 8.3 fL (7.6-11.3); Monocytes % 13.9 % (3.3-12.3); RBC Red Blood Cell Count 4.34 M/uL (4.33-5.43)
[2017-08-16] MEDS ORDERED: NA CHLORIDE 0.9% 1,000 ML ONE (12:19)
[2017-08-16] MEDS ORDERED: MORPHINE 4 MG/ML SYR ONE (12:19)
[2017-08-16] MEDS ORDERED: ONDANSETRON 4 MG/2 ML VIAL ONE (12:19)
[2017-08-16 12:36] LABS: Bicarbonate 27 mEq/L (21-31); Glucose Level 137 mg/dL (65-120); Potassium 3.6 mEq/L (3.6-5.0); Sodium Level 137 mEq/L (135-145)
--- NOTE | 2017-08-16 12:36 | RAD REPORT ---
EXAM DESCRIPTION: RAD - Chest Single View - 08/16/2017 12:28 pm CLINICAL HISTORY: Chest pain. COMPARISON: 10/03/2016 FINDINGS: Portable technique limits examination quality. The lungs are grossly clear. The heart is normal in size. No displaced fractures. IMPRESSION: No acute intrathoracic process suspected.
[2017-08-16 12:38] LABS: CKMB Creatine Kinase MB 1.2 ng/ml (0.3-4.0)
[2017-08-16 12:42] LABS: ALT/SGPT 56 IU/L (10-60); AST/SGOT 52 IU/L (10-42); Albumin 3.5 g/dL (3.2-5.5); Alkaline Phosphatase 134 IU/L (42-121); BUN Blood Urea Nitrogen 14 mg/dL (6-20); Bilirubin Direct 0.1 mg/dL (0-0.2); Bilirubin Total 0.5 mg/dL (0.3-1.2); Creatine Phosphokinase 88 IU/L (22-269); Magnesium 1.9 mg/dL (1.8-2.5); Protein, Total 8.1 g/dL (6.0-8.3)
--- NOTE | 2017-08-16 12:54 | EKG ---
Test Date: 2017-08-16 Test Time: 12:10:50 Bar Waiter/Waitress: SHANDRA MEASUREMENT RESULTS: Intervals: Rate: 82 MO: 148 QRSD: 96 QT: 364 QTc: 425 [place]: P: 47 MO: 148 QRS: 74 T: 43 INTERPRETIVE STATEMENTS: Normal sinus rhythm Normal ECG Compared to ECG 04/12/2017 03:05:42 No significant changes Electronically Signed On 08-16-17 12:54:13 CDT by Shaun Farooq
[2017-08-16 13:24] LABS: Urine Blood NEGATIVE (NEG); Urine Glucose NEGATIVE (NEG); Urine Protein NEGATIVE (NEG); Urine Specific Gravity 1.025 (1.005-1.030)
[2017-08-16 13:46] LABS: Barbiturates NEGATIVE; Benzodiazepines NEGATIVE; Cocaine NEGATIVE; METHAMPHETAM NEGATIVE; Opiates POSITIVE; Phencyclidine NEGATIVE; THC Cannibis NEGATIVE
--- NOTE | 2017-08-16 15:54 | ER ---
Nurse's Notes [facility] Name: Lobito Pack Age: 26 yrs Sex: Male : 1990 Arrival Date: 08/16/2017 Time: 11:17 Bed 24 Private MD: Diagnosis: Chest pain, unspecified Presentation: 08/16 11:28 Presenting complaint: Patient states: Chest pain 8/10 upon waking today. Recently dx hb pericarditis 2 weeks ago, feels like pain is similar. Transition of care: patient was not received from another setting of care. Onset of symptoms was August 16, 2017. Initial Sepsis Screen: Does the patient meet any 2 criteria?. Care prior to arrival: None. 11:28 Method Of Arrival: Ambulatory hb 11:28 Acuity: LEON 2 hb 16:51 Initial Sepsis Screen: Does the patient have a suspected source of infection? No. aj1 Patient's initial sepsis screen is negative. Historical: - Allergies: 11:31 Haldol; hb - Home Meds: 11:31 gabapentin 600 mg Oral tab 1 tab four times a day [Active]; Indomethacin Oral [Active]; hb - PMHx: 11:31 Alcoholism; Depression; Dystonic reaction to haldol; Lupus; Mixed connective tissue hb disease; pericarditis; Rheumatoid Arthritis; suicidal ideation; - PSHx: 11:31 Hernia repair; hb - Immunization history:: Adult Immunizations up to date. - Social history:: Smoking status: Patient uses tobacco products, smokes one-half pack cigarettes per day. Screenin:35 Abuse screen: Denies threats or abuse. Denies injuries from another. Nutritional aj1 screening: No deficits noted. Tuberculosis screening: No symptoms or risk factors identified. 16:51 Fall Risk None identified. aj1 Assessment: 11:35 General: Appears in no apparent distress. comfortable, Behavior is calm, cooperative, aj1 appropriate for age. Pain: Complains of pain in mid-sternal area Pain does not radiate. Pain currently is 8 out of 10 on a pain scale. Quality of pain is described as squeezing, Pain began 0900 this morning Is continuous, Alleviated by sitting up Aggravated by laying on his side. Neuro: Level of Consciousness is awake, alert, obeys commands, Oriented to person, place, time, situation, Speech is normal, Facial symmetry appears normal. Cardiovascular: Reports chest pain, Denies diaphoresis, lightheadedness, nausea, palpitations, shortness of breath, syncope, vomiting, Heart tones S1 S2 present Patient's skin is warm and dry. Rhythm is regular Chest pain is described as Pain is 8 out of 10 on a pain scale. quality is squeezing, is located in substernal area began 0900 this am episodes are continuous. Respiratory: Airway is patent Respiratory effort is even, unlabored, Respiratory pattern is regular, symmetrical, Breath sounds are clear bilaterally. Denies cough, shortness of breath. GI: No signs and/or symptoms were reported involving the gastrointestinal system. : No signs and/or symptoms were reported regarding the genitourinary system. EENT: No signs and/or symptoms were reported regarding the EENT system. Derm: No signs and/or symptoms reported regarding the dermatologic system. Skin is pink, warm \T\ dry. normal. Musculoskeletal: No signs and/or symptoms reported regarding the musculoskeletal system. Circulation, motion, and sensation intact. 12:15 Reassessment: Patient appears in no apparent distress at this time. No changes from aj1 previously documented assessment. Patient and/or family updated on plan of care and expected duration. Pain level reassessed. Patient is alert, oriented x 3, equal unlabored respirations, skin warm/dry/pink. 13:45 Reassessment: Patient appears in no apparent distress at this time. No changes from aj1 previously documented assessment. Patient and/or family updated on plan of care and expected duration. Pain level reassessed. Patient is alert, oriented x 3, equal unlabored respirations, skin warm/dry/pink. 14:58 Reassessment: Patient appears in no apparent distress at this time. No changes from aj1 previously documented assessment. Patient and/or family updated on plan of care and expected duration. Pain level reassessed. Patient is alert, oriented x 3, equal unlabored respirations, skin warm/dry/pink. 15:45 Reassessment: Patient and/or family updated on plan of care and expected duration. Pain aj1 level reassessed. General: Appears in no apparent distress. comfortable, Behavior is calm, cooperative, appropriate for age. Neuro: Level of Consciousness is awake, alert, obeys commands, Oriented to person, place, time, situation, Speech is normal, Facial symmetry appears normal. Cardiovascular: Heart tones S1 S2 present Patient's skin is warm and dry. Rhythm is sinus rhythm. Respiratory: Airway is patent Respiratory effort is even, unlabored, Respiratory pattern is regular, symmetrical, Breath sounds are clear bilaterally. GI: No signs and/or symptoms were reported involving the gastrointestinal system. : No signs and/or symptoms were reported regarding the genitourinary system. EENT: No signs and/or symptoms were reported regarding the EENT system. Derm: No signs and/or symptoms reported regarding the dermatologic system. Skin is pink, warm \T\ dry. normal. Musculoskeletal: No signs and/or symptoms reported regarding the musculoskeletal system. Circulation, motion, and sensation intact. 16:51 Reassessment: Patient appears in no apparent distress at this time. No changes from aj1 previously documented assessment. Patient and/or family updated on plan of care and expected duration. Pain level reassessed. Patient is alert, oriented x 3, equal unlabored respirations, skin warm/dry/pink. Vital Signs: 11:30 BP 152 / 86; Pulse 106; Resp 22; Temp 98.4; Pulse Ox 100% on R/A; Weight 97.52 kg; hb Height 5 ft. 10 in. (177.80 cm); Pain 8/10; 12:15 BP 123 / 75; Pulse 89; Resp 23; Pulse Ox 98% on R/A; aj1 13:45 BP 117 / 72; Pulse 99; Resp 18; Pulse Ox 98% on R/A; aj1 14:58 BP 113 / 65; Pulse 82; Resp 18; Pulse Ox 97% on R/A; aj1 16:00 BP 177 / 74; Pulse 91; Resp 18; Pulse Ox 99% ; aj1 16:50 BP 114 / 73; Pulse 86; Resp 18; Pulse Ox 100% ; aj1 11:30 Body Mass Index 30.85 (97.52 kg, 177.80 cm) hb ED Course: 11:17 Patient arrived in ED. sb2 11:30 Triage completed. hb 11:30 Arm band placed on right wrist. hb 11:35 Corbin Jones MD is Attending Physician. kdr 11:35 Patient has correct armband on for positive identification. Placed in gown. Bed in low aj1 position. Call light in reach. Side rails up X 1. technology lab teacher on. Pulse ox on. NIBP on. 11:35 No provider procedures requiring assistance completed. Initial lab(s) drawn, by mt, aj1 sent to lab. Inserted saline lock: 20 gauge in right antecubital area, using aseptic technique. Blood collected. Patient maintains SpO2 saturation greater than 95% on room air. 11:48 Marla Cedeño, RN is Primary Nurse. aj1 12:20 EKG done, reviewed by Corbin Jones MD. at1 12:28 X-ray completed. Portable x-ray completed in exam room. Patient tolerated procedure ml well. 12:28 XRAY Chest (1 view) In Process Unspecified. EDMS 13:30 Urine collected: clean catch specimen, cloudy, andres colored. jb1 16:20 EKG done, by hotel maintenance technician. reviewed by Corbin Jones MD. vh 16:52 IV discontinued, intact, bleeding controlled, No redness/swelling at site. Pressure aj1 dressing applied. Administered Medications: 12:32 Drug: NS 0.9% 1000 ml Route: IV; Rate: 1 bolus; Site: right antecubital; aj1 16:28 Follow up: IV Status: Completed infusion aj1 12:32 Drug: morphine 4 mg Route: IVP; Site: right antecubital; aj1 16:28 Follow up: Response: No adverse reaction aj1 12:32 Drug: Zofran 4 mg Route: IVP; Site: right antecubital; aj1 16:29 Follow up: Response: No adverse reaction aj1 Outcome: 15:54 Discharge ordered by . kdr 16:52 Discharged to home ambulatory. aj1 16:52 Condition: good 16:52 Discharge instructions given to patient, Instructed on discharge instructions, follow up and referral plans. medication usage, Demonstrated understanding of instructions, follow-up care, medications. 16:52 Patient left the ED. aj1 Signatures: Dispatcher [employer] EDMS Rojelio Sylvester jb1 Marla Cedeño, RONA RN Corbin Sykes MD MD kdr Lopez, Melissa ml gonzales, Amanda, soil conservation aide EKG Tat1 Diann Santiago Eli Olsen RN RN Symone Butcher sb2 Corrections: (The following items were deleted from the chart) 11:31 11:28 Acuity: LEON 3 hb hb 11:31 11:30 BP 152 / 86; Pulse 101bpm; Resp 18bpm; Pulse Ox 100% RA; Temp 98.4F; 97.52 kg; hb Height 5 ft. 10 in.; BMI: 30.8; Pain 8/10; hb 16:55 16:54 BP 114 / 73; Pulse 86bpm; Resp 18bpm; Pulse Ox 100%; aj1 aj1
--- NOTE | 2017-08-16 15:54 | EDPHYS ---
Physician Documentation [facility] Name: Lobito Pack Age: 26 yrs Sex: Male : 1990 Arrival Date: 08/16/2017 Time: 11:17 Bed 24 Private MD: ED Physician Corbin Jones HPI: 08/16 19:06 This 26 yrs old Male presents to ER via Ambulatory with complaints of Chest kdr Pain. 19:06 The patient or guardian reports chest pain that is located primarily in the anterior kdr chest wall, left. The pain does not radiate. Associated signs and symptoms: Pertinent positives: None. Pertinent negatives: abdominal pain, cough, diaphoresis, dizziness, headache, lower extremity pain. The chest pain is described as aching, a heaviness, a pressure. Duration: The patient or guardian reports multiple episodes, that are intermittent, that wax and wane, with no pattern. Severity of pain: At its worst the pain was moderate in the emergency department the pain has improved mildly. The patient has experienced a previous episode, The patient states that he was recently diagnosed with pericarditis at [facility] and given Indomethacin for his pain. He still has about eight pills left. The patient has not recently seen a physician. Historical: - Allergies: 11:31 Haldol; hb - Home Meds: 11:31 gabapentin 600 mg Oral tab 1 tab four times a day [Active]; Indomethacin Oral [Active]; hb - PMHx: 11:31 Alcoholism; Depression; Dystonic reaction to haldol; Lupus; Mixed connective tissue hb disease; pericarditis; Rheumatoid Arthritis; suicidal ideation; - PSHx: 11:31 Hernia repair; hb - Immunization history:: Adult Immunizations up to date. - Social history:: Smoking status: Patient uses tobacco products, smokes one-half pack cigarettes per day. ROS: 19:06 Constitutional: Negative for fever, chills, and weight loss, Eyes: Negative for injury, kdr pain, redness, and discharge, Neck: Negative for injury, pain, and swelling, Cardiovascular: Negative for chest pain, palpitations, and edema, Respiratory: Negative for shortness of breath, cough, wheezing, and pleuritic chest pain, Abdomen/GI: Negative for abdominal pain, nausea, vomiting, diarrhea, and constipation, Back: Negative for injury and pain, : Negative for injury, bleeding, discharge, and swelling, MS/Extremity: Negative for injury and deformity, Skin: Negative for injury, rash, and discoloration, Neuro: Negative for headache, weakness, numbness, tingling, and seizure activity. Psych: Negative for depression, anxiety, suicide ideation, homicidal ideation, and hallucinations, Allergy/Immunology: Negative for hives, rash, and allergies, Endocrine: Negative for neck swelling, polydipsia, polyuria, polyphagia, and marked weight changes, Hematologic/Lymphatic: Negative for swollen nodes, abnormal bleeding, and unusual bruising. Exam: 19:06 Constitutional: This is a well developed, well nourished patient who is awake, alert, kdr and in no acute distress. Head/Face: Normocephalic, atraumatic. Eyes: Pupils equal round and reactive to light, extra-ocular motions intact. Lids and lashes normal. Conjunctiva and sclera are non-icteric and not injected. Cornea within normal limits. Periorbital areas with no swelling, redness, or edema. Neck: Trachea midline, no thyromegaly or masses palpated, and no cervical lymphadenopathy. Supple, full range of motion without nuchal rigidity, or vertebral point tenderness. No Meningismus. Chest/axilla: Normal chest wall appearance and motion. Nontender with no deformity. No lesions are appreciated. Cardiovascular: Regular rate and rhythm with a normal S1 and S2. No gallops, murmurs, or rubs. Normal PMI, no JVD. No pulse deficits. Respiratory: Lungs have equal breath sounds bilaterally, clear to auscultation and percussion. No rales, rhonchi or wheezes noted. No increased work of breathing, no retractions or nasal flaring. Abdomen/GI: Soft, non-tender, with normal bowel sounds. No distension or tympany. No guarding or rebound. No evidence of tenderness throughout. Back: No spinal tenderness. No costovertebral tenderness. Full range of motion. Skin: Warm, dry with normal turgor. Normal color with no rashes, no lesions, and no evidence of cellulitis. MS/ Extremity: Pulses equal, no cyanosis. Neurovascular intact. Full, normal range of motion. Neuro: Awake and alert, GCS 15, oriented to person, place, time, and situation. Cranial nerves II-XII grossly intact. Motor strength 5/5 in all extremities. Sensory grossly intact. Cerebellar exam normal. Normal gait. Psych: Awake, alert, with orientation to person, place and time. Behavior, mood, and affect are within normal limits. Vital Signs: 11:30 BP 152 / 86; Pulse 106; Resp 22; Temp 98.4; Pulse Ox 100% on R/A; Weight 97.52 kg; hb Height 5 ft. 10 in. (177.80 cm); Pain 8/10; 12:15 BP 123 / 75; Pulse 89; Resp 23; Pulse Ox 98% on R/A; aj1 13:45 BP 117 / 72; Pulse 99; Resp 18; Pulse Ox 98% on R/A; aj1 14:58 BP 113 / 65; Pulse 82; Resp 18; Pulse Ox 97% on R/A; aj1 16:00 BP 177 / 74; Pulse 91; Resp 18; Pulse Ox 99% ; aj1 16:50 BP 114 / 73; Pulse 86; Resp 18; Pulse Ox 100% ; aj1 11:30 Body Mass Index 30.85 (97.52 kg, 177.80 cm) hb MDM: 15:54 Patient medically screened. kdr 16:30 ED course: Pericarditis RF for admission: No fever, no narrowing pulse pressure, no kdr leukocytosis, no exam evidence of an effusion, not in an immunosuppressed state, not on anti coagulation, troponin not elevated. 19:06 Data reviewed: vital signs, nurses notes, lab test result(s), radiologic studies. kdr Counseling: I had a detailed discussion with the patient and/or guardian regarding: the historical points, exam findings, and any diagnostic results supporting the discharge/admit diagnosis, lab results, radiology results, the need for outpatient follow up. ED course: The patient improved with the interventions given. He still had some discomfort but felt much better and wanted to go home. 08/16 11:48 Order name: Basic Metabolic Panel; Complete Time: :08/16 11:48 Order name: BNP; Complete Time: :08/16 11:48 Order name: CBC with Diff; Complete Time: :08/16 11:48 Order name: Ckmb; Complete Time: :08/16 11:48 Order name: CPK; Complete Time: :08/16 11:48 Order name: LFT's; Complete Time: 13:19 [facility] 08/16 11:48 Order name: Magnesium; Complete Time: 13: [facility] 08/16 11:48 Order name: PT-INR; Complete Time: 13: 08/16 11:48 Order name: Ptt, Activated; Complete Time: 13:19 [facility] 08/16 11:48 Order name: Troponin (emerg Dept Use Only); Complete Time: 13: [facility] 08/16 12:01 Order name: Urine Drug Screen; Complete Time: 14: [facility] 08/16 12:01 Order name: ETOH Level; Complete Time: 13: [facility] 08/16 13:22 Order name: Urine Dipstick--Ancillary (enter results); Complete Time: 14: 08/16 14:07 Order name: Troponin (emerg Dept Use Only): Repeat 2 hurs after initial draw [facility] 08/16 11:48 Order name: XRAY Chest (1 view); Complete Time: 13: [facility] 08/16 11:48 Order name: EKG; Complete Time: 11:49 08/16 11:48 Order name: Cardiac monitoring; Complete Time: 11:48 08/16 11:48 Order name: EKG - Nurse/Tech; Complete Time: 12:31 08/16 11:48 Order name: IV Saline Lock; Complete Time: 11:48 08/16 11:48 Order name: Labs collected and sent; Complete Time: 11:49 08/16 11:48 Order name: O2 Per Protocol; Complete Time: 11:49 08/16 11:48 Order name: O2 Sat Monitoring; Complete Time: 11:49 08/16 11:48 Order name: Urine Dipstick-Ancillary (obtain specimen); Complete Time: 13:30 [facility] 08/16 14:07 Order name: EKG Strip: Two hours after initial strip; Complete Time: 16:28 kdr Administered Medications: 12:32 Drug: NS 0.9% 1000 ml Route: IV; Rate: 1 bolus; Site: right antecubital; aj1 16:28 Follow up: IV Status: Completed infusion [facility] 12:32 Drug: morphine 4 mg Route: IVP; Site: right antecubital; aj1 16:28 Follow up: Response: No adverse reaction aj1 12:32 Drug: Zofran 4 mg Route: IVP; Site: right antecubital; aj1 16:29 Follow up: Response: No adverse reaction aj1 Disposition: 08/16/17 15:54 Discharged to Home. Impression: Chest pain, unspecified. - Condition is Stable. - Discharge Instructions: Nonspecific Chest Pain, [id number]. - Prescriptions for indomethacin 25 mg Oral capsule - take 1 capsule by ORAL route 4 times per day with food; 24 capsule. - Work release form, Medication Reconciliation Form, Thank You Letter, Antibiotic Education, Prescription Opioid Use form. - Follow up: Private Physician; When: 2 - 3 days; Reason: If symptoms return, Further diagnostic work-up, Recheck today's complaints, Continuance of care, Re-evaluation by your physician. - Problem is an acute exacerbation. - Symptoms have improved. Signatures: Dispatcher [employer] Marla Varner RN RN aj1 Corbin Jones MD MD [facility] Eli Olsen RN RN
--- NOTE | 2017-08-16 22:11 | EKG ---
Test Date: 2017-08-16 Test Time: 16:12:37 Weld Technician: BALJINDER MEASUREMENT RESULTS: Intervals: Rate: 86 OH: 148 QRSD: 92 QT: 354 QTc: 423 [place]: P: 65 OH: 148 QRS: 83 T: 71 INTERPRETIVE STATEMENTS: * Pediatric ECG analysis * Normal sinus rhythm ST elevation, consider early repolarization, pericarditis, or injury Compared to ECG 08/16/2017 12:10:50 ST (T wave) deviation now present Electronically Signed On 08-16-17 22:10:47 CDT by Shaun Farooq
== END 2017-08-16 16:52 | disposition home or self-care (01) ==
LOC: ER 11:15
DX: R07.9 Chest pain, unspecified (principal); F17.210 Nicotine dependence, cigarettes, uncomplicated; F32.9 Major depressive disorder, single episode, unspecified; F10.20 Alcohol dependence, uncomplicated; Z88.5 Allergy status to narcotic agent
CPT/HCPCS: 36415; 71045; 80048; 80076; 80307; 80320; 81003; 82550; 82553; 83735; 83880; 84484; 85025; 85610; 85730; 93005; 96361; 96374; 96375; 99285; J2405; J7030

== ENCOUNTER 2017-08-29 15:50 | Emergency (ER) | payer OTHER, SELFPAY ==
--- OUTSIDE RECORDS SUMMARY | 2017-08-29 15:53 | XMS REPORT | Clinical Summary ---
:1990 Author Organization [facility] Address [address] [place] [address] Care Team Providers Name Role Phone Asked, [...] Team Description 02/03/2017 - Hospital Encounter Psychiatry Siira Bradshaw MD 02/11/2017 Ivan Kaplan MD after 08/28/2016 Social History Tobacco Use Types Packs/Day Years [...] Left (02/07/2017 7:15 PM) Specimen Performing Laboratory [email or web address] [address] [place] [address] Narrative EXAMINATION:XR ELBOW 2 VW LEFT CLINICAL HISTORY:ARTHRITISELBOW COMPARISON:None. IMPRESSION: There is a small elbow joint effusion. There are no bony changes to suggest degenerative arthritis or obvious inflammatory arthritis otherwise. Bone mineralization is normal. There is no focal bone lesion. [facility]-[id number] Procedure Note Hm Interface, Radiology Results Incoming - 02/07/2017 9:35 PM CDT EXAMINATION: XR ELBOW 2 VW LEFT CLINICAL HISTORY: ARTHRITIS ELBOW COMPARISON: None. IMPRESSION: There is a small elbow joint effusion. There are no bony changes to suggest degenerative arthritis or obvious inflammatory arthritis otherwise. Bone mineralization is normal. There is no focal bone lesion. [facility]-[id number] CT Head Wo Contrast (02/04/2017 10:53 AM) Specimen Performing Laboratory [email or web address] [address] [place] [address] Narrative EXAMINATION: CT HEAD WO CONTRAST CLINICAL [...] for additional pertinent findings, details and comments. [id number] Procedure Note Interface, Radiology Results Incoming - [...] for additional pertinent findings, details and comments. [id number] Urine drugs of abuse screen (02/04/2017 8:00 AM) Component Value Ref Range Amphetamine screen, urine Positive (A) Barbiturate screen, urine Negative Benzodiazepine screen, urine Negative Cannabinoid screen, urine Negative Cocaine screen, urine Negative Methadone metabolite (EDDP), urine Negative Opiates screen, urine Negative Oxycodone screen, urine Negative Phencyclidine screen, urine Negative Tricyclic screen, urine Negative Comment: Drug screen minimum concentration of detectability Acyggjxbomie0028 ng/mL Barbiturates 200 ng/mL Grnjrkjvdnurxqd806 ng/mL Djpnici684 ng/mL Gjwkqwzxr766 ng/mL Lhkfqxg292 ng/mL Hvbktpmop646 ng/mL Phencyclidine 25 ng/mL Vnslgvkbqulk50 ng/mL Czaigiwwhk2894 ng/mL Negative test results indicates presumptive evidence of lack of clinically significant drug concentration in this urine specimen. Positive test results are presumptive evidence of clinically significant drug concentration in this urine specimen. Testing performed for medical purposes only. Specimen Performing Laboratory Urine [facility] DEPARTMENT OF PATHOLOGY AND GENOMIC MEDICINE [address] [place] [id number] Syphilis treponemal IgG (02/04/2017 6:00 AM) Component Value Ref Range Syphilis treponemal IgG Non-reactiveComment: Non-reactive: No Non-reactive serological evidence of Syphilis infection Specimen Performing Laboratory Serum [facility]PART[facility] OF [facility]OLOG[facility] [address] [place] [address] Thyroid stimulating hormone (02/04/2017 6:00 AM) Component Value Ref Range TSH 2.25 0.27 - 4.20 uIU/mL Specimen Performing Laboratory Plasma specimen [facility] DEPARTMENT OF PATHOLOGY AND GENOMIC MEDICINE [address] [place] [id number] Hemoglobin A1c (02/04/2017 6:00 AM) Component Value [...] type 1 diabetes. Specimen Performing Laboratory Blood [facility] [address] [place] [id number] Hepatic function panel (02/04/2017 6:00 AM) Component Value Ref Range Albumin 3.2 (L) 3.5 - 5.0 g/dL Total bilirubin 0.4 0.0 - 1.2 mg/dL Bilirubin direct <0.2 0.0 - 0.3 mg/dL Alkaline phosphatase 91 40 - 129 U/L Protein 7.5 6.3 - 8.3 g/dL Comment: Maryneal 4.6-7.0 g/dL 1 week 4.4-7.6 g/dL 7 months-1year5.1-7.3 g/dL 1-2 years5.6-7.5 g/dL >3 years6.0-8.0 g/dL 18-150 6.3-8.3 g/dL ALT 47 5 - 50 U/L AST 36 10 - 50 U/L Specimen Performing Laboratory Plasma specimen [facility] DEPARTMENT OF PATHOLOGY AND GENOMIC MEDICINE [address] [place] [id number] Lipid panel (02/04/2017 6:00 AM) Component Value Ref Range Cholesterol 113 <200 mg/dL Triglycerides 62 <150 mg/dL HDL cholesterol 38 (L) >40 mg/dL LDL cholesterol 69Comment: Result obtained by direct LDL <100 mg/dL measurement Lipid panel interpretation SeeBelow Comment: Total Cholesterol (mg/dL) <200 Desirable [id number]-kmyz >=240High Triglycerides (mg/dL) <150 Normal [id number] 200-499High >=500Very high HDL Cholesterol (mg/dL) <40Low (male) <40Low (female) LDL Cholesterol (mg/dL) <100 Optimal 100-129Near or above optimal [id number]-ldrd 160-189High >=190Very high Risk Catergories that modify [...] (>=200 mg/dL) Specimen Performing Laboratory Plasma specimen [facility] DEPARTMENT OF PATHOLOGY AND GENOMIC MEDICINE [address] [place] [address]104 ECG 12 lead (02/03/2017 7:34 PM) Component Value Ref Range Ventricular rate 79 Atrial rate 79 MA interval 146 QRSD interval 98 QT interval 388 QTC interval 444 P axis 1 59 QRS axis 1 79 T wave axis 70 EKG impression Normal sinus rhythm-Normal ECG-No previous ECGs available- Specimen Performing Laboratory [facility] [address] [place] [address] after 08/28/2016
--- OUTSIDE RECORDS SUMMARY | 2017-08-29 15:53 | XMS REPORT ---
:1990 Author Organization [facility] Address [address] [place] [address] Care Team Providers Name Role Phone UNKNOWN, REFFERING Primary Care Provider Unavailable NIKO ROSADO M.D. Unavailable Unavailable Problems This patient has no known problems. Allergies, Adverse Reactions, Alerts This patient has no known allergies or adverse reactions. Medications This patient has no known medications. Encounters Start End Encounter Admission Attending Care Care Encounter Date/Time Date/Time Type Type Clinicians Facility Department ID 2017-08-17 2017-08-21 Inpatient [facility] [id number] 16:45:00 13:34:00 NIKO Jean M.D. 2017-04-15 2017-04-19 Inpatient E [facility] [id number] 15:43:00 14:07:00 NIKO Jean M.D. Results Test Description Test Time Test Comments Text Results Atomic Results Result Comments HIV Rapid 2017-08-19 10:53:00 Test Item Value Reference Range Comments HIV 1/2 Antibody (test Non-Reactive Non-Reactive HIV1/2 Antibody screen result code=HIV1/2AB) indicates the absence of HIV1 and [id number].However, A Non-Reactive screen result does not rule out exposure orinfection. If an acute infection is suspected, HIV RNA Quantitative is recommended. P24 Antigen (test Non-Reactive Non-Reactive P24 Ag screen result indicates code=P24) the absence of P24 antigen, which is anindicator of HIV-1 acute infection.However, A Non-Reactive screen does not rule out exposure or infection.If acute HIV-1 is suspected, HIV RNA Quantitative is recommended. Sed Rate ESR ([place])2017-08-19 08:17:00 Test Item Value Reference Range Comments ESR (test code=HESR) 45 mm/Hr 0-9 Hepatitis Acute [id number] 07:39:00 Test Item Value Reference Range Comments Hep Bs Ag (test Nonreactive Non-Reactive code=HBSAG) Hep C Ab (test code=HCAB) Nonreactive Non-Reactive A Reactive result may indicate a past or present HCV infection orpossibly a carrier state. It is not diagnostic of Hepatitis C.However, a patient with a repeatedly Reactive result should beconsidered infectious. Reactive for HCV antibody by EIA screeningshould be confirmed by a supplemental test. Hepatitis A IgM (test Nonreactive Non-Reactive code=HAVM) Hep B Core IgM (test Nonreactive Non-Reactive code=HBCABM) C-Reactive Protein, [id number] 07:30:00 Test Item Value Reference Range Comments CRP (test code=CRP) 66.1 mg/L 0.0-5.0 RPR, [id number] 09:33:00 Test Item Value Reference Range Comments RPR (test code=RPR) Non-Reactive Non-Reactive Thyroid Stimulating Hormone (TSH)2017-08-18 07:47:00 Test Item Value Reference Range Comments TSH (test code=TSH) 1.29 mIU/mL 0.270-4.200 Lipid [id number] 07:39:00 Test Item Value Reference Range Comments Cholesterol (test 138 mg/dL 0-200 code=CHOL) Triglycerides (test 169 mg/dL 9-200 code=TRIG) HDL (test code=HDL) 40 mg/dL 40-60 Chol/HDL (test 3.5 Ratio 0.0-5.0 code=CHOLPHDL) LDL, Calculated (test 64 0-130 (NOTE)RISK OF HEART code=LDLC) DISEASEPublished by [place] Heart AssociationAnalyte Optimal Boderline Increased RiskCHOL <200 200-239 >240TRIG <150 150-199 >200HDL Male: >60 <40HDL Female: >60 <50LDL <100 130-159 >160LDL NEAR OPTIMAL IS 100-129 VLDL (test code=VLDL) 34 mg/dL 5-40 LDL/HDL (test code=LDLPHDL) 2 [id number] 18:55:00 Test Item Value Reference Range Comments Amphetamine [...] Negative code=PROPOX) THC (test code=THC) Negative Negative Urinalysis [id number] 18:46:00 Test Item Value Reference Range Comments Color (test code=COLOR) Yellow Yellow,Straw,Pl yellow Clarity (test code=CLAR) Clear Clear Specific [place] (test code=SPGR) 1.024 1.001-1.035 pH (test code=PH) 5.0 5.0-9.0 Ketone (test code=KET) Negative mg/dL Negative Glucose (test code=GLUCUR) Negative mg/dL Negative Protein (test code=PROT) 25 mg/dL Negative Bilirubin (test code=BILI) Negative mg/dL Negative Occult Blood (test code=UDOB) Negative Negative Urobilinogen (test code=UROB) 0.2 mg/dL 0.2-1.0 Nitrite (test code=NIT) Negative Negative Leuk Esterase (test code=LEUK) Negative Negative Micros Exam (test code=MEXAM) Indicated Epithelial Cells (test code=EPI) Few /LPF 0-30 WBC, Urine (test code=UWBC) 0-1 /HPF 0-5 RBC, Urine (test code=URBC) 0-3 /HPF 0-5 Bacteria (test code=BACT) None /HPF Comprehensive Metabolic [id number] 06:44:00 Test Item Value Reference Range Comments Sodium (test code=NA) 139 mmol/L 135-145 Potassium (test code=K) 4.4 mmol/L 3.5-5.1 Chloride (test code=CL) 103 mmol/L 98-105 Carbon Dioxide (test 18 mmol/L 22-29 code=CO2) Glucose (test code=GLU) 93 mg/dL 70-115 Blood Urea Nitrogen 8 mg/dL 6-20 (test code=BUN) Creatinine (test 0.8 mg/dL 0.7-1.2 code=CREAT) Calcium (test code=CA) 8.8 mg/dL 8.3-10.5 Prot Total (test 9.2 g/dL 6.4-8.3 code=TP) Albumin (test code=ALB) 4.2 g/dL 3.5-5.2 A/G Ratio (test 0.8 Ratio code=AGRATIO) Globulin (test 5.0 2.9-3.1 code=GLOB) Bili Total (test 0.4 mg/dL 0.1-0.9 code=TBIL) Alk Phos (test 177 U/L 40-129 code=APHOS) AST (test code=AST) 57 U/L 1-40 hemolyzed ALT (test code=ALT) 67 U/L 1-41 BUN/Creatinine Ratio 10.0 (test code=BCRATIO) Anion Gap (test 18 mmol/L 7-16 code=AGAP) Estimated GFR (test >60 mL/min/1.73m2 eGFR (estimated Glomerular code=GFR) Filtration Rate) is an estimated value,calculated from the patient's serum creatinine using the MDRD equation.It is NOT the patient's actual GFR. The eGFR provides a more clinicallyuseful measure of kidney disease than serum creatinine alone.This calculation takes sex and race into account, if the informationis provided. If the race is not provided, and the patient isAfrican-Rwandan, multiply by 1.212. If sex is not provided, and thepatient is female, multiply by 0.742. Results for patients <18 years ofage have not been validated by the MDRD study and should be interpretedwith caution.eGFR Result Interpretation:eGFR > or=60 is in the Normal RangeeGFR < 60 may mean kidney diseaseeGFR < 15 may mean kidney failureRanges recommended by the National Kidney Foundation,http://nkdep.nih .gov CBC with [id number] 06:30:00 Test Item Value Reference Range Comments WBC (test code=WBC) 7.6 K/cumm 4.4-10.5 RBC (test code=RBC) 4.70 M/cumm 4.10-5.70 Hemoglobin (test code=HGB) 14.1 gm/dL 13.4-17.4 Hematocrit (test code=HCT) 42.3 % 38.7-52.0 MCV (test code=MCV) 90.1 fL 80-100 MCH (test code=MCH) 30.0 pg 27.0-32.5 MCHC (test code=MCHC) 33.3 g/dL 32.0-37.5 RDW (test code=RDW) 12.8 % 11.5-14.5 Platelet Count (test code=PLTCT) 255 K/cumm 140-440 MPV (test code=MPV) 6.7 fL Diff Method (test code=DIFFM) Auto Neutrophil (test code=NEUT) 60.2 % 36-70 Lymphocyte (test code=LYMPH) 25.1 % 12-44 Monocyte (test code=MONO) 10.8 % 0-11 Eosinophil (test code=EOS) 3.2 % 0-7 Basophil (test code=BASO) 0.7 % 0-2 Neutro Abs (test code=ANEUT) 4.6 K/cumm 1.6-7.4 Lymph Abs (test code=ALYMPH) 1.9 K/cumm 0.5-4.6 [place] Abs (test code=AMONO) 0.8 K/cumm 0.0-1.2 Eos Abs (test code=AEOS) 0.25 K/cumm 0.00-0.74 Baso Abs (test code=ABASO) 0.1 K/cumm 0.00-0.21 RPR, [id number] 15:32:00 Test Item Value Reference Range Comments RPR (test code=RPR) Non-Reactive Non-Reactive Lipid [id number] 09:41:00 Test Item Value Reference Range Comments Cholesterol (test 155 mg/dL 0-200 code=CHOL) Triglycerides (test 137 mg/dL 9-200 code=TRIG) HDL (test code=HDL) 40 mg/dL 40-60 Chol/HDL (test 3.9 Ratio 0.0-5.0 code=CHOLPHDL) LDL, Calculated (test 88 0-130 (NOTE)RISK OF HEART code=LDLC) DISEASEPublished by [place] Heart AssociationAnalyte Optimal Boderline Increased RiskCHOL <200 200-239 >240TRIG <150 150-199 >200HDL Male: >60 <40HDL Female: >60 <50LDL <100 130-159 >160LDL NEAR OPTIMAL IS 100-129 VLDL (test code=VLDL) 27 mg/dL 5-40 LDL/HDL (test code=LDLPHDL) 2 Thyroid Stimulating Hormone (TSH)2017-04-16 09:25:00 Test Item Value Reference Range Comments TSH (test code=TSH) 2.86 mIU/mL 0.270-4.200 Alcohol/Ethanol, [id number] 08:01:00 Test Item Value Reference Range Comments Alcohol, Ethyl (test 0.14 g/dL 0.00-0.01 Intoxicated 0.080 g/dL or code=ETOH) more [id number] 04:28:00 Test Item Value Reference Range Comments [...] 0.32 g/dL 0.00-0.01 danny rblv code=ETOHU) Urinalysis [id number] 04:17:00 Test Item Value Reference Range Comments Color (test code=COLOR) Yellow Yellow,Straw,Pl yellow Clarity (test code=CLAR) Clear Clear Specific [place] (test code=SPGR) 1.013 1.001-1.035 pH (test code=PH) [...] Bacteria (test code=BACT) Few /HPF Comprehensive Metabolic [id number] 03:15:00 Test Item Value Reference Range Comments [...] mmol/L 7-16 code=AGAP) Estimated GFR (test >60 mL/min/1.73m2 eGFR (estimated Glomerular code=GFR) Filtration Rate) is an estimated value,calculated from the patient's serum creatinine using the MDRD equation.It is NOT the patient's actual GFR. The eGFR provides a more clinicallyuseful measure of kidney disease than serum creatinine alone.This calculation takes sex and race into account, if the informationis provided. If the race is not provided, and the patient isAfrican-Rwandan, multiply by 1.212. If sex is not provided, and thepatient is female, multiply by 0.742. Results for patients <18 years ofage have not been validated by the MDRD study and should be interpretedwith caution.eGFR Result Interpretation:eGFR > or=60 is in the Normal RangeeGFR < 60 may mean kidney diseaseeGFR < 15 may mean kidney failureRanges recommended by the National Kidney Foundation,http://nkdep.nih .gov CBC with [id number] 03:12:00 Test Item Value Reference Range Comments [...] Lymph Abs (test code=ALYMPH) 1.6 K/cumm 0.5-4.6 [place] Abs (test code=AMONO) 0.4 K/cumm 0.0-1.2 Eos Abs (test code=AEOS) 0.42 K/cumm 0.00-0.74 Baso Abs (test code=ABASO) 0.1 K/cumm 0.00-0.21 C difficile Toxins [id number] 09:05:00Specimen: StoolCollected: 01/10/2017 07 :00 Status: Final Last Updated: 01/11/2017 09:05 C DIFF TOXIN (Final) ( Final) 01/11/17 No Clostridium difficile toxin presentGlycosylated [id number] 08:05:00 Test Item Value Reference Range Comments HBA1c (test code=HBA1C) 4.8 % 4.8-5.9 RPR, [id number] 18:31:00 Test Item Value Reference Range Comments RPR (test code=RPR) Non-Reactive Non-Reactive Thyroid Stimulating Hormone (TSH)2017-01-01 10:37:00 Test Item Value Reference Range Comments TSH (test code=TSH) 1.85 mIU/mL 0.270-4.200 Lipid [id number] 10:34:00 Test Item Value Reference Range Comments Cholesterol (test 156 mg/dL 0-200 code=CHOL) Triglycerides (test 159 mg/dL 9-200 code=TRIG) HDL (test code=HDL) 47 mg/dL 40-60 Chol/HDL (test 3.3 Ratio 0.0-5.0 code=CHOLPHDL) LDL, Calculated (test 77 0-130 (NOTE)RISK OF HEART code=LDLC) DISEASEPublished by [place] Heart AssociationAnalyte Optimal Boderline Increased RiskCHOL <200 200-239 >240TRIG <150 150-199 >200HDL Male: >60 <40HDL Female: >60 <50LDL <100 130-159 >160LDL NEAR OPTIMAL IS 100-129 VLDL (test code=VLDL) 32 mg/dL 5-40 LDL/HDL (test code=LDLPHDL) 2 Alcohol/Ethanol, [id number] 09:59:00 Test Item Value Reference Range Comments Alcohol, Ethyl (test 0.09 g/dL 0.00-0.01 Intoxicated 0.080 g/dL or code=ETOH) more CBC with [id number] 02:40:00 Test Item Value Reference Range Comments [...] Lymph Abs (test code=ALYMPH) 1.6 K/cumm 0.5-4.6 [place] Abs (test code=AMONO) 0.3 K/cumm 0.0-1.2 Eos Abs (test code=AEOS) 0.33 K/cumm 0.00-0.74 Baso Abs (test code=ABASO) 0.1 K/cumm 0.00-0.21 [id number] 02:39:00 Test Item Value Reference Range Comments [...] VALUESVERIFIED code=ETOHU) BY REPEAT TESTINGKeena @238am 01/01/2017 [facility] Comprehensive Metabolic [id number] 02:36:00 Test Item Value Reference Range Comments [...] mmol/L 7-16 code=AGAP) Estimated GFR (test >60 mL/min/1.73m2 eGFR (estimated Glomerular code=GFR) Filtration Rate) is an estimated value,calculated from the patient's serum creatinine using the MDRD equation.It is NOT the patient's actual GFR. The eGFR provides a more clinicallyuseful measure of kidney disease than serum creatinine alone.This calculation takes sex and race into account, if the informationis provided. If the race is not provided, and the patient isAfrican-Rwandan, multiply by 1.212. If sex is not provided, and thepatient is female, multiply by 0.742. Results for patients <18 years ofage have not been validated by the MDRD study and should be interpretedwith caution.eGFR Result Interpretation:eGFR > or=60 is in the Normal RangeeGFR < 60 may mean kidney diseaseeGFR < 15 may mean kidney failureRanges recommended by the National Kidney Foundation,http://nkdep.nih .gov Urinalysis [id number] 02:17:00 Test Item Value Reference Range Comments Color (test code=COLOR) Yellow Yellow,Straw,Pl yellow Clarity (test code=CLAR) Clear Clear Specific [place] (test code=SPGR) 1.010 1.001-1.035 pH (test code=PH) [...]
[2017-08-29 16:59] LABS: Absolute Lymphocytes (CBC) 0.9 K/uL (0.7-4.9); Absolute Monocytes 1.3 K/uL (0.1-1.3); Absolute Neutrophil 10.4 K/uL (1.8-8.0); Basophils % 0.2 % (0-1.3); Eosinophils % 0.3 % (0-4.4); Hematocrit 33.1 % (39.6-49.0); MPV 7.9 fL (7.6-11.3); Monocytes % 10.1 % (3.3-12.3); RBC Red Blood Cell Count 3.84 M/uL (4.33-5.43)
[2017-08-29 17:06] LABS: Protime INR 1.39
[2017-08-29 17:14] LABS: Bicarbonate 25 mEq/L (21-31); Glucose Level 101 mg/dL (65-120); Sodium Level 135 mEq/L (135-145)
[2017-08-29 17:20] LABS: ALT/SGPT 30 IU/L (10-60); AST/SGOT 30 IU/L (10-42); Albumin 3.2 g/dL (3.2-5.5); Alkaline Phosphatase 187 IU/L (42-121); BUN Blood Urea Nitrogen 9 mg/dL (6-20); Bilirubin Direct 0.3 mg/dL (0-0.2); Bilirubin Total 0.9 mg/dL (0.3-1.2); Creatine Phosphokinase 62 IU/L (22-269); Magnesium 1.8 mg/dL (1.8-2.5); Protein, Total 8.3 g/dL (6.0-8.3)
[2017-08-29] MEDS ORDERED: ASPIRIN 81 MG CHEWABLE TABLET ONE (17:20)
[2017-08-29] MEDS ORDERED: NA CHLORIDE 0.9% 1,000 ML ONE (17:20)
[2017-08-29] MEDS ORDERED: KETOROLAC 30 MG/ML INJ ONE (17:20)
--- NOTE | 2017-08-29 17:57 | RAD REPORT ---
EXAM DESCRIPTION: CT - Chest For Pe Angio - 08/29/2017 5:38 pm CLINICAL HISTORY: Chest pain, shortness of breath COMPARISON: Chest exam same date TECHNIQUE: Dynamically enhanced 3 mm thick images of the chest were obtained during administration o f approximately 150mL Isovue 370 IV contrast. Coronal and oblique reconstruction images were generate d and reviewed. Exam utilizes a protocol to evaluate the pulmonary arterial tree. All CT scans are performed using dose optimization technique as appropriate and may include automated exposure control or mA/KV adjustment according to patient size. FINDINGS: No pulmonary emboli are identified. The aorta as imaged shows no acute or suspicious finding. Very large pericardial effusion is present measuring 2.1 cm in thickness. No focal mass or consolidation identified. Patient has small bilateral pleural effusions. No endobron chial lesions seen. No pleural based mass or pneumothorax. No mediastinal or hilar suspicious masses. No mass of the chest wall. Patient has significant bilater al axillary lymph nodes, greater than typically encounter. Dense bilateral gynecomastia. IMPRESSION: Large pericardial effusion 2.1 cm in thickness. Abnormal bilateral axillary lymphadenopathy. Pattern is nonspecific and can be from both malignant an d non malignant etiologies. No pulmonary emboli. Small bilateral pleural effusions with no focal lung parenchymal process. No mediastinal or hilar mas s or lymphadenopathy.
--- NOTE | 2017-08-29 18:52 | EDPHYS ---
Physician Documentation [facility] Name: Lobito Pack Age: 26 yrs Sex: Male : 1990 Arrival Date: 08/29/2017 Time: 15:54 Bed 14 Private MD: None, None ED Physician Carlos Eduardo Bowers HPI: 08/29 18:34 This 26 yrs old Male presents to ER via Ambulatory with complaints of Chest wa Pain, Shortness Of Breath. 18:34 The patient or guardian reports chest pain that is located primarily in the substernal wa area. The pain does not radiate. Associated signs and symptoms: Pertinent positives: lightheadedness, shortness of breath, Pertinent negatives: abdominal pain, cough, dizziness, headache, near syncope, palpitations. The chest pain is described as sharp. Duration: The patient or guardian reports a single episode, that is still ongoing, 2 weeks. Modifying factors: The symptoms are alleviated by nothing. the symptoms are aggravated by deep breath. Severity of pain: At its worst the pain was moderate in the emergency department the pain is unchanged. seen here 2 weeks ago and told has pericarditis. states lost his script and could not fill his prescription. The patient has been recently seen by a physician: here 2 weeks. 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 - Social history:: Smoking status: Patient uses tobacco products, Patient/guardian denies using alcohol, street drugs. - Family history:: not pertinent. - Hospitalizations: : No recent hospitalization is reported. ROS: 18:37 Constitutional: Negative for fever, chills, and weight loss, Eyes: Negative for injury, wa pain, redness, and discharge, ENT: Negative for injury, pain, and discharge, Neck: Negative for injury, pain, and swelling, Abdomen/GI: Negative for abdominal pain, nausea, vomiting, diarrhea, and constipation, Back: Negative for injury and pain, : Negative for injury, bleeding, discharge, and swelling, MS/Extremity: Negative for injury and deformity, Skin: Negative for injury, rash, and discoloration, Neuro: Negative for headache, weakness, numbness, tingling, and seizure, Psych: Negative for depression, anxiety, suicide ideation, homicidal ideation, and hallucinations. 18:37 Cardiovascular: Positive for chest pain, Negative for edema, orthopnea, palpitations. 18:37 All other systems are negative. Exam: 18:39 Constitutional: This is a well developed, well nourished patient who is awake, alert, wa and in no acute distress. Head/Face: Normocephalic, atraumatic. Eyes: Pupils equal round and reactive to light, extra-ocular motions intact. Lids and lashes normal. Conjunctiva and sclera are non-icteric and not injected. Cornea within normal limits. Periorbital areas with no swelling, redness, or edema. ENT: Nares patent. No nasal discharge, no septal abnormalities noted. Tympanic membranes are normal and external auditory canals are clear. Oropharynx with no redness, swelling, or masses, exudates, or evidence of obstruction, uvula midline. Mucous membranes moist. Neck: Trachea midline, no thyromegaly or masses palpated, and no cervical lymphadenopathy. Supple, full range of motion without nuchal rigidity, or vertebral point tenderness. No Meningismus. Abdomen/GI: Soft, non-tender, with normal bowel sounds. No distension or tympany. No guarding or rebound. No evidence of tenderness throughout. Back: No spinal tenderness. No costovertebral tenderness. Full range of motion. Skin: Warm, dry with normal turgor. Normal color with no rashes, no lesions, and no evidence of cellulitis. MS/ Extremity: Pulses equal, no cyanosis. Neurovascular intact. Full, normal range of motion. Neuro: Awake and alert, GCS 15, oriented to person, place, time, and situation. Cranial nerves II-XII grossly intact. Motor strength 5/5 in all extremities. Sensory grossly intact. Cerebellar exam normal. Normal gait. Psych: Awake, alert, with orientation to person, place and time. Behavior, mood, and affect are within normal limits. 18:39 Chest/axilla: Inspection: normal, Palpation: is normal. 18:39 Cardiovascular: Rate: tachycardic, Rhythm: regular, Pulses: no pulse deficits are appreciated, Heart sounds: normal, Edema: is not appreciated, JVD: is not appreciated. Vital Signs: 16:08 BP 126 / 81; Pulse 123; Resp 18; Temp 98.2(TE); Pulse Ox 97% on R/A; Weight 97.52 kg; hj Height 5 ft. 10 in. (177.80 cm); Pain 10/10; 17:15 BP 128 / 80; Pulse 117; Resp 24; Pulse Ox 97% on R/A; em 18:51 BP 134 / 87; Pulse 114; Resp 28; Pulse Ox 96% on R/A; Pain 6/10; em 19:29 BP 107 / 85; Pulse 114; Resp 19; Temp 98.6; Pulse Ox 96% on 2 lpm NC; Pain 5/10; em 16:08 Body Mass Index 30.85 (97.52 kg, 177.80 cm) hj MDM: 16:12 Patient medically screened. ia 18:40 Differential diagnosis: abnormal EKG, acute myocardial infarction, acute pericarditis, wa coronary artery disease chest wall pain, congestive heart failure pericarditis, pulmonary embolus. 18:40 Data reviewed: vital signs, nurses notes, lab test result(s), EKG, radiologic studies. ia Test interpretation: by ED physician or midlevel provider: EKG: HR 123. sinus tach. . 18:42 Test interpretation: by ED physician or midlevel provider: labs noted for leukocytosis wa and anemia. . 18:42 Test interpretation: by ED physician or midlevel provider: CT chest: no PE. small wa pleural effusions. large pericardial effusion. ED course: no cardiothoracic surgeon in this hsp. will transfer to a higher level of care for possible pericardial window. does not need emergent pericardiocentesis as fairly stable and not in extremis at this time. 08/29 16:30 Order name: Basic Metabolic Panel; Complete Time: 18:30 08/29 16:30 Order name: BNP; Complete Time: 18:30 08/29 16:30 Order name: CBC with Diff; Complete Time: 18:30 08/29 16:30 Order name: CPK; Complete Time: 18:30 08/29 16:30 Order name: LFT's; Complete Time: 18:30 08/29 16:30 Order name: Magnesium; Complete Time: 18:30 ia 08/29 16:30 Order name: PT-INR; Complete Time: 18:30 ia 08/29 16:30 Order name: Troponin (emerg Dept Use Only); Complete Time: 18:30 ia 08/29 16:30 Order name: Chest Pa And Lat (2 Views) XRAY ia 08/29 16:31 Order name: CT Chest For PE Angio; Complete Time: 18:28 ia 08/29 16:30 Order name: EKG; Complete Time: 16:30 ia 08/29 16:30 Order name: Cardiac monitoring; Complete Time: 17:55 ia 08/29 16:30 Order name: EKG - Nurse/Tech; Complete Time: 17:55 ia 08/29 16:30 Order name: IV Saline Lock; Complete Time: 17:55 ia 08/29 16:30 Order name: Labs collected and sent; Complete Time: 17:55 ia 08/29 16:30 Order name: O2 Per Protocol; Complete Time: 17:55 ia 08/29 16:30 Order name: O2 Sat Monitoring; Complete Time: 17:55 ia Administered Medications: 17:20 Drug: Aspirin Chewable Tablet 324 mg Route: PO; iw 19:28 Follow up: Response: No adverse reaction em 17:20 Drug: TORadol 30 mg Route: IVP; Site: right antecubital; iw 18:40 Follow up: Response: No adverse reaction; Pain is unchanged, physician notified em 17:20 Drug: NS 0.9% 1000 ml Route: IV; Rate: 1 bolus; Site: right antecubital; iw 19:30 Follow up: IV Status: Completed infusion; IV Intake: 1000ml em 19:00 Drug: fentaNYL (PF) 75 mcg Route: IVP; Site: right antecubital; iw 19:31 Follow up: Response: No adverse reaction; Pain is decreased em Disposition: 08/29/17 18:[address] [facility]. Diagnosis are Acute Chest pain, Acute dyspnea, Large pericardial effusion, bilateral pleural effusion. - Reason for transfer: Higher level of care. - Accepting physician is Dr. Matson at [facility]. - Condition is Fair. - Problem is new. - Symptoms have improved. Signatures: Dispatcher [employer] EDEz Alfaro LVN INSURANCE EXAMINER Payal Gandara, RN RN iw Jona Bell RN RN hj Genet Lira RN RN tl2 Carlos Eduardo Bowers MD MD wa Corrections: (The following items were deleted from the chart) 20:28 18:52 08/29/2017 18:[address] [facility]. Diagnosis is tl2 Acute Chest pain; Acute dyspnea; Large pericardial effusion; bilateral pleural effusion. Reason for transfer: Higher level of care. Accepting physician is Dr. Matson at [facility]. Condition is Fair. Problem is new. Symptoms have improved. wa
--- NOTE | 2017-08-29 18:52 | ER ---
Nurse's Notes [facility] Name: Lobito Pack Age: 26 yrs Sex: Male : 1990 Arrival Date: 08/29/2017 Time: 15:54 Bed 14 Private MD: None, None Diagnosis: Acute Chest pain;Acute dyspnea;Large pericardial effusion;bilateral pleural effusion Presentation: 08/29 16:05 Presenting complaint: Patient states: my chest has been hurting since yesterday, hj squeezing pain, and now i am short of breath; i was dx with pericarditis; was here for the same problem couple of weeks ago, was Rx with indometacin but i lost my Rx;. Transition of care: patient was not received from another setting of care. Onset of symptoms was August 29, 2017. Initial Sepsis Screen: Does the patient meet any 2 criteria? No. Patient's initial sepsis screen is negative. Does the patient have a suspected source of infection? No. Patient's initial sepsis screen is negative. Care prior to arrival: None. 16:05 Method Of Arrival: Ambulatory 16:05 Acuity: LEON 3 hj Triage Assessment: 16:07 General: Appears in no apparent distress. uncomfortable, Behavior is calm, cooperative, hj appropriate for age. Pain: Complains of pain in chest. Cardiovascular: Capillary refill < 3 seconds Patient's skin is warm and dry. 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 - Social history:: Smoking status: Patient uses tobacco products, Patient/guardian denies using alcohol, street drugs. - Family history:: not pertinent. - Hospitalizations: : No recent hospitalization is reported. Screenin:54 Abuse screen: Denies threats or abuse. Denies injuries from another. Nutritional iw screening: No deficits noted. Tuberculosis screening: No symptoms or risk factors identified. Fall Risk IV access (20 points). Assessment: 16:08 Pain: Pain does not radiate. Pain began 1 day ago. hj 16:52 General: Appears in no apparent distress. Behavior is calm, cooperative. Pain: iw Complains of pain in chest Pain currently is 6 out of 10 on a pain scale. at worst was 8 out of 10 on a pain scale. Is intermittent. Pain: Pain does not radiate. Pain: Quality of pain is described as pressure. Pain: Is. Pain: Pain began 1 day ago. Neuro: Level of Consciousness is awake, alert, obeys commands, Oriented to person, place, time, situation, Moves all extremities. Full function. Cardiovascular: Reports chest pain, palpitations, Patient's skin is warm and dry. Respiratory: Respiratory effort is even, unlabored, Respiratory pattern is regular, symmetrical. GI: Abdomen is non-distended. Derm: Skin is pink, warm \T\ dry. normal. Musculoskeletal: Range of motion: intact in all extremities. 17:50 Reassessment: Patient appears in no apparent distress at this time. Patient and/or em family updated on plan of care and expected duration. Pain level reassessed. Patient is alert, oriented x 3, equal unlabored respirations, skin warm/dry/pink. 18:33 Reassessment: Patient appears in no apparent distress at this time. c/o of pain, Dr. jae Bowers notified, new order received. 19:10 General: Appears in no apparent distress. uncomfortable, Behavior is calm, cooperative, tl2 appropriate for age. Cardiovascular: Reports chest pain, palpitations, Heart tones S1 S2 present Patient's skin is warm and dry. Respiratory: Reports shortness of breath Airway is patent Respiratory effort is even, unlabored, Respiratory pattern is regular, symmetrical, Breath sounds are clear bilaterally. Respiratory:. GI: No signs and/or symptoms were reported involving the gastrointestinal system. Derm: Skin is pink, warm \T\ dry. 19:48 Reassessment: Patient appears in no apparent distress at this time. report called to jae Boggs RN at [facility]. 20:25 Reassessment: Pt stable and ready for transfer. tl2 Vital Signs: 16:08 BP 126 / 81; Pulse 123; Resp 18; Temp 98.2(TE); Pulse Ox 97% on R/A; Weight 97.52 kg; hj Height 5 ft. 10 in. (177.80 cm); Pain 10/10; 17:15 BP 128 / 80; Pulse 117; Resp 24; Pulse Ox 97% on R/A; em 18:51 BP 134 / 87; Pulse 114; Resp 28; Pulse Ox 96% on R/A; Pain 6/10; em 19:29 BP 107 / 85; Pulse 114; Resp 19; Temp 98.6; Pulse Ox 96% on 2 lpm NC; Pain 5/10; em 16:08 Body Mass Index 30.85 (97.52 kg, 177.80 cm) ED Course: 15:54 Patient arrived in ED. mr 15:54 None, None is Private Physician. mr 16:07 Triage completed. hj 16:08 Arm band placed on right wrist. hj 16:08 Patient maintains SpO2 saturation greater than 95% on room air. hj 16:10 monitor car operator on. Pulse ox on. NIBP on. hj 16:12 Carlos Eduardo Bowers MD is Attending Physician. wa 16:37 Radiology exam delayed due to lab results not completed at this time. (BUN/Creatinine). vr 16:50 Initial lab(s) drawn, by me, sent to lab. Inserted saline lock: 20 gauge in right iw antecubital area, using aseptic technique. Blood collected. 17:12 Ez Reed LVN is Primary Nurse. em 17:30 Patient has correct armband on for positive identification. Bed in low position. Call em light in reach. Side rails up X2. Adult w/ patient. 17:38 CT Chest For PE Angio In Process Unspecified. EDMS 17:43 X-ray completed. Patient tolerated procedure well. Patient moved back from radiology. ml 17:50 Chest Pa And Lat (2 Views) XRAY In Process Unspecified. EDMS 18:17 No provider procedures requiring assistance completed. em 19:47 Patient transferred, IV remains in place. em Administered Medications: 17:20 Drug: Aspirin Chewable Tablet 324 mg Route: PO; iw 19:28 Follow up: Response: No adverse reaction em 17:20 Drug: TORadol 30 mg Route: IVP; Site: right antecubital; iw 18:40 Follow up: Response: No adverse reaction; Pain is unchanged, physician notified em 17:20 Drug: NS 0.9% 1000 ml Route: IV; Rate: 1 bolus; Site: right antecubital; iw 19:30 Follow up: IV Status: Completed infusion; IV Intake: 1000ml em 19:00 Drug: fentaNYL (PF) 75 mcg Route: IVP; Site: right antecubital; iw 19:31 Follow up: Response: No adverse reaction; Pain is decreased em Intake: 19:30 IV: 1000ml; Total: 1000ml. em Outcome: 18:52 ER care complete, transfer ordered by . wa 19:48 Transferred by ground EMS to [facility], Transfer form completed. em X-rays sent w/ patient. 19:48 Condition: good 19:48 Instructed on the need for transfer, Demonstrated understanding of instructions. 20:28 Patient left the ED. tl2 Signatures: Dispatcher [employer] Jane Marsh mr Reed, Ez, CERTIFIED BENCH JEWELER TECHNICIAN CERTIFIED BENCH JEWELER TECHNICIAN Payal Gandara, RN RONA Gagnon, Selena Urias Henry, RN RN hj Knox, Taylor, RN RN tl2 Carlos Eduardo Bowers MD MD me Corrections: (The following items were deleted from the chart) 16:10 16:08 Pulse 123bpm; Resp 18bpm; Pulse Ox 97% RA; Temp 98.2F Temporal; 97.52 kg; Height hj 5 ft. 10 in.; BMI: 30.8; Pain 10/10; hj 16:13 16:05 Presenting complaint: Patient states: my chest has been hurting since yesterday, hj squeezing pain, and now i am shirt of breath; i was dx with pericarditis; was here for the same problem couple of weeks ago, was Rx with indometacin but i lost my Rx; hj 17:44 17:43 X-ray completed. Portable x-ray completed in exam room. Patient tolerated ml procedure well. ml
[2017-08-29] MEDS ORDERED: FENTANYL CITR 100 MCG/2 ML ONE (18:55)
--- NOTE | 2017-08-29 20:00 | RAD REPORT ---
EXAM DESCRIPTION: RAD - Chest Pa And Lat (2 Views) - 08/29/2017 5:50 pm CLINICAL HISTORY: Chest pain, shortness of breath COMPARISON: August 16 TECHNIQUE: PA and lateral views of the chest were obtained. FINDINGS: The lungs are underinflated. Interstitial edema is evident. Trachea is midline. No vascu lar engorgement. Cardiac silhouette is enlarged from either pericardial effusion or chamber enlargeme nt. No pneumothorax. Small pleural effusions are present. No acute bony finding noted. No aortic abn ormality. IMPRESSION: Cardiomegaly has developed since August 16. This could be chamber enlargement or pericard ial effusion. Interstitial infiltrate or edema pattern with small pleural effusions.
--- NOTE | 2017-08-30 06:45 | EKG ---
Test Date: 2017-08-29 Test Time: 16:08:47 Corporate Human Resources Manager: Saul MEASUREMENT RESULTS: Intervals: Rate: 123 SC: 136 QRSD: 82 QT: 326 QTc: 466 Hubert[place]: P: 53 SC: 136 QRS: 73 T: 55 INTERPRETIVE STATEMENTS: Sinus tachycardia Otherwise normal ECG Compared to ECG 08/16/2017 16:12:37 Sinus rhythm no longer present ST (T wave) deviation no longer present Electronically Signed On 08-30-17 06:45:31 CDT by Shaun Farooq
== END 2017-08-29 20:28 | disposition short-term general hospital (02) ==
LOC: ER 15:50
DX: I31.3 Pericardial effusion (noninflammatory) (principal); R06.00 Dyspnea, unspecified; J90 Pleural effusion, not elsewhere classified; F32.9 Major depressive disorder, single episode, unspecified; F10.20 Alcohol dependence, uncomplicated; Z72.0 Tobacco use; Z88.8 Allergy status to other drugs, medicaments and biological substances
CPT/HCPCS: 36415; 71046; 71275; 80048; 80076; 82550; 83735; 83880; 84484; 85025; 85610; 93005; 96361; 96374; 96375; 99285; J3010; J7030; Q9967

== ENCOUNTER 2017-09-05 21:51 | Emergency (ER) | payer OTHER ==
--- OUTSIDE RECORDS SUMMARY | 2017-09-05 21:53 | XMS REPORT | Clinical Summary ---
:1990 Author Organization [facility] Address [address] [place] [address] Care Team Providers Name Role Phone Asked, [...] Bradshaw MD 02/11/2017 Ivan Kaplan MD after 09/04/2016 Social History Tobacco Use Types Packs/Day Years [...] Left (02/07/2017 7:15 PM) Specimen Performing Laboratory [facility] [address] [address] Narrative EXAMINATION:XR ELBOW 2 VW LEFT CLINICAL HISTORY:ARTHRITISELBOW COMPARISON:None. IMPRESSION: There is a small elbow joint effusion. There are no bony changes to suggest degenerative arthritis or obvious inflammatory arthritis otherwise. Bone mineralization is normal. There is no focal bone lesion. [facility]-[id number] Procedure Note Hm Interface, Radiology Results Incoming - 02/07/2017 9:35 PM CDT EXAMINATION: XR ELBOW 2 VW LEFT CLINICAL HISTORY: ARTHRITIS ELBOW COMPARISON: None. IMPRESSION: There is a small elbow joint effusion. There are no bony changes to suggest degenerative arthritis or obvious inflammatory arthritis otherwise. Bone mineralization is normal. There is no focal bone lesion. [facility]-[id number] CT Head Wo Contrast (02/04/2017 10:53 AM) Specimen Performing Laboratory [facility] [address] [place] [address] Narrative EXAMINATION: CT HEAD WO CONTRAST CLINICAL [...] for additional pertinent findings, details and comments. [id number] Procedure Note Interface, Radiology Results Incoming - [...] for additional pertinent findings, details and comments. [id number] Urine drugs of abuse screen (02/04/2017 8:00 AM) Component Value Ref Range Amphetamine screen, urine Positive (A) Barbiturate screen, urine Negative Benzodiazepine screen, urine Negative Cannabinoid screen, urine Negative Cocaine screen, urine Negative Methadone metabolite (EDDP), urine Negative Opiates screen, urine Negative Oxycodone screen, urine Negative Phencyclidine screen, urine Negative Tricyclic screen, urine Negative Comment: Drug screen minimum concentration of detectability [id number] ng/mL Barbiturates 200 ng/mL Dovakzjbvxdgotu076 ng/mL Hiwijjm000 ng/mL Idypyxxms413 ng/mL Cnxpccw203 ng/mL Awhmvsspg360 ng/mL Phencyclidine 25 ng/mL Ewwgnlhemtxp20 ng/mL Xbnrurskft5650 ng/mL Negative test results indicates presumptive evidence of lack of clinically significant drug concentration in this urine specimen. Positive test results are presumptive evidence of clinically significant drug concentration in this urine specimen. Testing performed for medical purposes only. Specimen Performing Laboratory Urine [facility] DEPARTMENT OF PATHOLOGY AND GENOMIC MEDICINE [address] [place] [id number] Syphilis treponemal IgG (02/04/2017 6:00 AM) Component Value Ref Range Syphilis treponemal IgG Non-reactiveComment: Non-reactive: No Non-reactive serological evidence of Syphilis infection Specimen Performing Laboratory Serum [facility] DEPARTMENT OF PATHOLOGY AND [facility] [address] [place] [address] Thyroid stimulating hormone (02/04/2017 6:00 AM) Component Value Ref Range TSH 2.25 0.27 - 4.20 uIU/mL Specimen Performing Laboratory Plasma specimen [facility] DEPARTMENT OF PATHOLOGY AND GENOMIC MEDICINE [address] [place] [address] 38590 Hemoglobin A1c (02/04/2017 6:00 AM) Component Value [...] type 1 diabetes. Specimen Performing Laboratory Blood [facility] OF PATHOLOGY AND [facility] [address] [place] [id number] Hepatic function panel (02/04/2017 6:00 AM) Component Value Ref Range Albumin 3.2 (L) 3.5 - 5.0 g/dL Total bilirubin 0.4 0.0 - 1.2 mg/dL Bilirubin direct <0.2 0.0 - 0.3 mg/dL Alkaline phosphatase 91 40 - 129 U/L Protein 7.5 6.3 - 8.3 g/dL Comment: [place] 4.6-7.0 g/dL 1 week 4.4-7.6 g/dL 7 months-1year5.1-7.3 g/dL 1-2 years5.6-7.5 g/dL >3 years6.0-8.0 g/dL 18-150 6.3-8.3 g/dL ALT 47 5 - 50 U/L AST 36 10 - 50 U/L Specimen Performing Laboratory Plasma specimen [facility] DEPARTMENT OF PATHOLOGY AND GENOMIC MEDICINE [address] [place] [address]99 Lipid panel (02/04/2017 6:00 AM) Component Value Ref Range Cholesterol 113 <200 mg/dL Triglycerides 62 <150 mg/dL HDL cholesterol 38 (L) >40 mg/dL LDL cholesterol 69Comment: Result obtained by direct LDL <100 mg/dL measurement Lipid panel interpretation SeeBelow Comment: Total Cholesterol (mg/dL) <200 Desirable [id number]-ebrw >=240High Triglycerides (mg/dL) <150 Normal [id number]-dsko 200-499High >=500Very high HDL Cholesterol (mg/dL) <40Low (male) <40Low (female) LDL Cholesterol (mg/dL) <100 Optimal 100-129Near or above optimal [id number]-kxga 160-189High >=190Very high Risk Catergories that modify [...] (>=200 mg/dL) Specimen Performing Laboratory Plasma specimen [facility] DEPARTMENT OF PATHOLOGY AND GENOMIC MEDICINE [address] [place] [address] ECG 12 lead (02/03/2017 7:34 PM) Component Value Ref Range Ventricular rate 79 Atrial rate 79 MI interval 146 QRSD interval 98 QT interval 388 QTC interval 444 P axis 1 59 QRS axis 1 79 T wave axis 70 EKG impression Normal sinus rhythm-Normal ECG-No previous ECGs available- Specimen Performing Laboratory [facility] [address] [place] [address] after 09/04/2016
--- OUTSIDE RECORDS SUMMARY | 2017-09-05 21:54 | XMS REPORT | Clinical Summary ---
:1990 Author Organization [facility] Address [address] [place] [address] Phone Care Team Providers Name Role Phone Unavailable Primary Care Provider Unavailable Allergies Active Allergy Reactions Severity Noted Date Comments Haloperidol Other (See Comments) High 08/29/2017 Muscle spasm Current Medications Prescription Sig. Disp. Refills Start Date End Date Status gabapentin (NEURONTIN) Take 600 mg by Active 600 MG tablet mouth 3 (three) times daily. sertraline (ZOLOFT) 50 Take 50 mg by Active MG tablet mouth daily. mirtazapine (REMERON) Take 15 mg by Active 15 MG tablet mouth nightly. predniSONE (DELTASONE) Take 40 mg daily 112 tablet 0 09/04/2017 Active 10 MG tablet x 1 week and decrease dose by 5 mg each week until taking only 5 mg daily.. predniSONE (DELTASONE) Use 5 mg tablets 28 tablet 0 09/04/2017 Active 5 MG tablet in taper to make 35 mg, 25 mg, 15 mg, and 5 mg doses.. predniSONE (DELTASONE) After taper down 70 tablet 0 09/04/2017 Active 1 MG tablet to 5 mg daily, take 4 mg daily x 1 week, 3 mg daily x 1 week, 2 mg daily x 1 week, 1 mg daily x 1 week and stop.. Active Problems Problem Noted Date Depression 09/02/2017 Tobacco abuse 09/02/2017 Anemia 09/02/2017 Hyponatremia 09/02/2017 Mixed connective tissue disease (HCC) 08/30/2017 Acute pericarditis 08/30/2017 Pericardial effusion 08/29/2017 Encounters Date Type Specialty Care Team Description 08/30/2017 Procedure Pass 08/30/2017 Surgery Kee Matson PERICARDIOCENTESIS MD Robert 08/29/2017 - [facility] [place], Pericardial effusion 09/04/2017 Encounter MD Max (Primary Dx);MCTD (mixed Brann, Christopher connective tissue disease) MD Shaun (HCC);Other Kelvin Morton, depression;Acute MD pericarditis, unspecified Yong Jose type;Depression, MD Benjamin unspecified depression type;Tobacco abuse after 09/04/2016 Family History Medical History Relation Name Comments Alcohol abuse Father Mental illness Father Diabetes Maternal Grandfather Hypertension Maternal Grandfather Kidney disease Maternal Grandfather Arthritis Maternal Grandmother Depression Mother Diabetes Mother Early Mother Kidney disease Mother Relation Name Status Comments Father Maternal Grandfather Maternal Grandmother Mother Social History Tobacco Use Types Packs/Day Years Used Date Current Every Day Smoker 1 Tobacco Cessation: Ready to Quit: Yes Alcohol Use Drinks/Week oz/Week Comments Yes 6 Cans of beer 3.6 occational on weekends Sex Assigned at Date Recorded Not on file Last Filed Vital Signs Vital Sign Reading Time Taken Blood Pressure 114/60 09/04/2017 7:31 AM CDT Pulse 73 09/04/2017 7:32 AM CDT Temperature 36.2 C (97.2 F) 09/04/2017 7:31 AM CDT Respiratory Rate 16 09/04/2017 7:32 AM CDT Oxygen Saturation 98% 09/04/2017 7:32 AM CDT Inhaled Oxygen Concentration - - Weight 92.1 kg (203 lb 1.6 oz) 09/04/2017 7:31 AM CDT Height 177.8 cm (5' 10") 08/29/2017 9:34 PM CDT Body Mass Index 29.14 09/04/2017 7:31 AM CDT Plan of Treatment Not on file Procedures Procedure Name Priority Date/Time Associated Diagnosis Comments PERICARDIOCENTESIS 08/30/2017 11:23 AM CDT Pericardial effusion after 09/04/2016 Results RHYTHM STRIP - SCAN (09/05/2017 12:40 PM)CARDIAC CATH REPORT - SCAN (09/03/2017 2:13 PM)ECHOCARDIOGRAM REPORT - SCAN (09/03/2017 10:52 AM)Only the most recent of3 resultswithin the time period is included.T Spot TB (09/02/2017 5: 25 AM) Component Value Ref Range T-Spot TB Negative Neg Ctrl Spot Count 0 Panel A Spot 0 Panel B Spot [address] 0 Scan Result 0 Specimen Performing Laboratory Blood [facility] [address] [facility], [address] [place] [address] CBC with platelet count + automated diff (09/02/2017 5:25 AM)Only the most recent of2 resultswithin the time period is included. Component Value Ref Range WBC 6.3 3.5 - 10.5 K/L RBC 3.58 (L) 4.63 - 6.08 M/L Hemoglobin 10.0 (L) 13.7 - 17.5 GM/DL Hematocrit 31.2 (L) 40.1 - 51.0 % MCV 87.2 79.0 - 92.2 fL MCH 27.9 25.7 - 32.2 pg MCHC 32.1 (L) 32.3 - 36.5 GM/DL RDW 12.7 11.6 - 14.4 % Platelets 366 150 - 450 K/CU MM MPV 9.3 (L) 9.4 - 12.4 fL nRBC 0 0 - 0 /100 WBC % Neutros 68 % % Lymphs 16 % % Monos 9 % % Eos 6 % % Baso 1 % # Neutros 4.29 1.78 - 5.38 K/L # Lymphs 1.01 (L) 1.32 - 3.57 K/L # Monos 0.57 0.30 - 0.82 K/L # Eos 0.36 0.04 - 0.54 K/L # Baso 0.03 0.01 - 0.08 K/L Immature Granulocytes-Relative 1 0 - 1 % Specimen Performing Laboratory Blood [facility] [address] [place] [address] [place] [address] CBC with platelet count + automated diff (09/02/2017 5:25 AM)Only the most recent of2 resultswithin the time period is included. Specimen Performing Laboratory Blood [facility] The following orders were created for panel order CBC with platelet count + automated diff. Procedure Abnormality Status --------- ------ CBC with platelet count ...[[id number]]AbnormalFinal result Please view results for these tests on the individual orders. Basic Metabolic Panel (09/02/2017 5:25 AM)Only the most recent of5 resultswithin the time period is included. Component Value Ref Range Sodium 133 (L) 136 - 145 meq/L Potassium 4.2 3.5 - 5.1 meq/L Chloride 98 98 - 107 meq/L CO2 27 22 - 29 meq/L BUN 7 7 - 21 mg/dL Creatinine 0.69 0.57 - 1.25 mg/dL Glucose 91 70 - 105 mg/dL Calcium 8.5 8.4 - 10.2 mg/dL EGFR 138Comment: ESTIMATED GFR IS NOT ACCURATE mL/min/1.73 sq m CREATININE CLEARANCE IN PREDICTING GLOMERULAR FILTRATION RATE. ESTIMATED GFR IS NOT APPLICABLE FOR DIALYSIS PATIENTS. Specimen Performing Laboratory Blood [facility] [address] [address] 2D Echo W/Doppler(CW/PW/Color) (09/01/2017 4:03 PM)Only the most recent of3 resultswithin the time period is included. Component Value Ref Range Ejection Fraction Specimen Performing Laboratory [facility] MKCKESSON CPACS Narrative Transthoracic Echocardiography Report (TTE) Demographics Patient Name LOBITO LOUISE Date of Study09/01/2017 [id number] Gender Male Visit Number [id number] Race [id number] Number [id number] Number Date of Birth1990 Referring PhysicianEvelyne Ruiz Age26 year(s) SonographPEYMAN Roberson AnalystAriadnaInterpreting Jakob BaileysPhysitorsten HAZEL Procedure Type of Study TTE procedure:2DECHO W DOPPLER(CW/PW/COLOR) (Routine) Indications:Pericardial effusion. Clinical History Acute Pericarditis, Pericardial effusion HGB 10.4 HCT 32.3 % 08/30/17 Pericardiocentesis Height: 70 inches Weight: 95.71 kg (211 lbs) BSA: 2.14 m^2 BMI: 30.28 kg/m^2 HR: 97 bpm BP: 154/80 mmHg Summary The left ventricle is chamber size (by vol index) is normal (male - LVED vol - 34-74ml/m2). No evidence of LV hypertrophy. All of the LV segments are hyperkinetic . Global LV systolic function hyperdynamic . LVEF by Wolf's method of disk assessment is increased (>70%) . Normal diastolic function. A small pericardial effusion is present . Greatest pericardial end-diastolic size is approx. 1.2 cm. ( clip 88) seen around the anterolateral LV and appears organized. Pericardial tamponade physiology is not evident . Previous Study Compared to the previous study there was no significant change. Signature Findings Technical Quality: Technically adequate exam. Left Ventricle The LV endocardium is adequately visualized. The left ventricle is chamber size (by vol index) is normal (male - LVED vol - 34-74ml/m2). No evidence of LV hypertrophy. All of the LV segments are hyperkinetic . Global LV systolic function hyperdynamic . LVEF by Wolf's method of disk assessment is increased (>70%) . Normal diastolic function. High (cardiac index >4 L/min/m2 ) cardiac output state at rest is noted. Left AtriumLA size is normal (16-34 ml/m2) . Right VentricleThe right ventricular chamber size and systolic function are within normal limits. Right Atrium RA size is normal. Aortic Valve Normal AoV structure and function. Mitral Valve Normal MV structure. Trivial mitral regurgitation. Tricuspid ValveTV structure is normal. A trace of tricuspid regurgitation. Estimated peak systolic PA pressure is 20 mmHg + RA pressure. Pulmonic Valve Normal PV structure. A trace of pulmonary regurgitation. PericardiumA small pericardial effusion is present . Greatest pericardial end- diastolic size is approx. 1.2 cm. clip 88 seen around the anterolateral LV and appears organized. Pericardial tamponade physiology is not evident . IVC/SVC/PA/PV/PleuralThe estimated RA pressure by IVC dynamics 5-10mmHg . A left pleural effusion is noted. Chambers/Structures Left Atrium LA Volume: 65.81 ml LA Area: 19.61 cm^ 2 LA Vol. Index: 31 ml/m^2 Left Ventricle LVIDd: 4.31 cm LVEDV:92.8 ml LVIDs: 2.48 cm LVESV:37.48 ml LV Septum Diastolic: 1.07 cm LV PW Diastolic: 1.01 cm LV Length: 10.24 cm LVEDV Wolf's:77.14 ml LV FS: 42.5 % LVESV Wolf's:17.98 ml LVEF Wolf's: 81.1 % LVEDVI: 36 ml/m^2 LVESVI: 8 ml/m^2 LVOT Diameter: 2.18 cm LVEF: 59.6 % Right Atrium RA Vol. (Sngl Plane): 59.23 ml Right Ventricle TAPSE: 2.21 cm Aorta Ao Root S of Jessica.: 2.74 cmAscending Aorta: 2.51 cm Doppler/Quantitative Measurements Mitral Valve MV Peak E-Wave: 0.9 m/s MV Peak A-Wave: 0.47 m/s E/ A Ratio: 1.93 Peak Gradient: 3.22 mmHg Deceleration Time: 151.8 msec MV Alvaro. Peak: Tissue Doppler E' Septal Velocity: 0.14 m/sE/E': 7.38 E' Lateral Velocity: 0.12 m/s Aortic Valve Peak Velocity: 1.76 m/sMean Velocity: 1.26 m/s Peak Gradient: 12.37 mmHgMean Gradient: 7.21 mmHg AV Area (continuity): 2.98 cm^2 AV VTI: 31.69 cm AV DVI: 0.8 LVOT Peak Velocity: 1.26 m/s Peak Gradient: 6.4 mmHg Mean Velocity: 0.92 m/s Mean Gradient: 3.75 mmHg LVOT Diameter: 2.18 cmLVOT VTI: 25.34 cm LVOT Area: 3.73 cm^2LVOT SV:94.53 ml LVOT CO: 9.17 l/min LVOT CI: 4.29 l/min/m^2 RVOT RVOT VTI (PW): 16.08 cm Tricuspid Valve TR Velocity: 3.01 m/s TR Gradient: 36.31 mmHg Procedure Note Interface, External Ris In - 09/03/2017 10:16 AM CDT Transthoracic Echocardiography Report (TTE) Demographics Patient Name LOBITO LOUISE Date of Study 09/01/2017 Gender Male Visit Number [id number] Race Room Number [id number] Number Date of 1990 Referring Physician Evelyne Ruiz Age 26 year(s) 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 Clinical History Acute Pericarditis, Pericardial effusion HGB 10.4 HCT 32.3 % 08/30/17 Pericardiocentesis Height: 70 inches Weight: 95.71 kg (211 lbs) BSA: 2.14 m^2 BMI: 30.28 kg/m^2 HR: 97 bpm BP: 154/80 mmHg Summary The left ventricle is chamber size (by vol index) is normal (male - LVED vol - 34-74ml/m2). No evidence of LV hypertrophy. All of the LV segments are hyperkinetic . Global LV systolic function hyperdynamic . LVEF by Wolf's method of disk assessment is increased (>70%) . Normal diastolic function. A small pericardial effusion is present . Greatest pericardial end-diastolic size is approx. 1.2 cm. ( clip 88) seen around the anterolateral LV and appears organized. Pericardial tamponade physiology is not evident . Previous Study Compared to the previous study there was no significant change. Signature Findings Technical Quality: Technically adequate exam. Left Ventricle The LV endocardium is adequately visualized. The left ventricle is chamber size (by vol index) is normal (male - LVED vol - 34-74ml/m2). No evidence of LV hypertrophy. All of the LV segments are hyperkinetic . Global LV systolic function hyperdynamic . LVEF by Wolf's method of disk assessment is increased (>70%) . Normal diastolic function. High (cardiac index >4 L/min/m2) cardiac output state at rest is noted. Left Atrium LA size is normal (16-34 ml/m2) . Right Ventricle The right ventricular chamber size and systolic function are within normal limits. Right Atrium RA size is normal. Aortic Valve Normal AoV structure and function. Mitral Valve Normal MV structure. Trivial mitral regurgitation. Tricuspid Valve TV structure is normal. A trace of tricuspid regurgitation. Estimated peak systolic PA pressure is 20 mmHg + RA pressure. Pulmonic Valve Normal PV structure. A trace of pulmonary regurgitation. Pericardium A small pericardial effusion is present . Greatest pericardial end-diastolic size is approx. 1.2 cm. clip 88 seen around the anterolateral LV and appears organized. Pericardial tamponade physiology is not evident . IVC/SVC/PA/PV/Pleural The estimated RA pressure by IVC dynamics 5-10mmHg . A left pleural effusion is noted. Chambers/Structures Left Atrium LA Volume: 65.81 ml LA Area: 19.61 cm^2 LA Vol. Index: 31 ml/m^2 Left Ventricle LVIDd: 4.31 cm LVEDV:92.8 ml LVIDs: 2.48 cm LVESV:37.48 ml LV Septum Diastolic: 1.07 cm LV PW Diastolic: 1.01 cm LV Length: 10.24 cm LVEDV Wolf's:77.14 ml LV FS: 42.5 % LVESV Wolf's:17.98 ml LVEF Wolf's: 81.1 % LVEDVI: 36 ml/m^2 LVESVI: 8 ml/m^2 LVOT Diameter: 2.18 cm LVEF: 59.6 % Right Atrium RA Vol. (Sngl Plane): 59.23 ml Right Ventricle TAPSE: 2.21 cm Aorta Ao Root S of Jessica.: 2.74 cm Ascending Aorta: 2.51 cm Doppler/Quantitative Measurements Mitral Valve MV Peak E-Wave: 0.9 m/s MV Peak A-Wave: 0.47 m/s E/A Ratio: 1.93 Peak Gradient: 3.22 mmHg Deceleration Time: 151.8 msec MV Alvaro. Peak: Tissue Doppler E' Septal Velocity: 0.14 m/s E/E': 7.38 E' Lateral Velocity: 0.12 m/s Aortic Valve Peak Velocity: 1.76 m/s Mean Velocity: 1.26 m/s Peak Gradient: 12.37 mmHg Mean Gradient: 7.21 mmHg AV Area (continuity): 2.98 cm^2 AV VTI: 31.69 cm AV DVI: 0.8 LVOT Peak Velocity: 1.26 m/s Peak Gradient: 6.4 mmHg Mean Velocity: 0.92 m/s Mean Gradient: 3.75 mmHg LVOT Diameter: 2.18 cm LVOT VTI: 25.34 cm LVOT Area: 3.73 cm^2 LVOT SV:94.53 ml LVOT CO: 9.17 l/min LVOT CI: 4.29 l/min/m^2 RVOT RVOT VTI (PW): 16.08 cm Tricuspid Valve TR Velocity: 3.01 m/s TR Gradient: 36.31 mmHg HIV-1 Antigen with HIV-1/2 Antibody (09/01/2017 9:50 AM) Component Value Ref Range HIV-1 Antigen with HIV 1&2 Antibody Nonreactive Nonreactive Specimen Performing Laboratory Blood [address] [address] Sjogren's antibodies (09/01/2017 4:33 AM) Component Value Ref Range Anti-Ss-A <1.0 NEG <1.0 NEGATIVE AI Anti-Ss-B <1.0 NEG <1.0 NEGATIVE AI Specimen Performing Laboratory Blood [facility] [address] [address] Narrative Performing Lab [facility] [address] [address] Emil Darnell MD, PhD, PHANI Anti-DNA Titer (09/01/2017 4:33 AM) Component Value Ref Range Anti-DNA Titer >=1:320 Specimen Performing Laboratory Blood [address] [address] Actin (Smooth Muscle) Antibody, IgG (09/01/2017 4:33 AM) Component Value Ref Range Anti-Smooth Muscle Ab 57 (H) See Note: U Comment: Reference Range: <20 NEGATIVE > OR=20 POSITIVE Antibodies recognizing actin are the main component of smooth muscle antibodies associated with autoimmune liver disease. Actin antibodies are found in approximately 75% of patients with autoimmune hepatitis (AIH) type 1, approximately 65% of patients with autoimmune cholangitis, approximately 30% of patients with primary biliary cirrhosis, and approximately 2% of healthy people. High values are closely correlated with AIH type 1. Specimen Performing Laboratory Blood [facility] [address] [place] [address] Narrative Performing Lab [facility] [address] [place] [address] Emil Darnell MD, PhD, PHANI JUAN Titer & Pattern (09/01/2017 4:33 AM) Component Value Ref Range JUAN Titer >=1:2560 JUAN Pattern Speckled Specimen Performing Laboratory [address] [address] Double-Stranded DNA (dsDNA) Antibody (09/01/2017 4:33 AM) Component Value Ref Range ds DNA Ab Positive Specimen Performing Laboratory [address] [address] Prothrombin time/INR (09/01/2017 4:33 AM)Only the most recent of3 resultswithin the time period is included. Component Value Ref Range Protime 15.7 (H) 11.7 - 14.7 seconds INR 1.3 <=5.9 Specimen Performing Laboratory [address] [address] Narrative RECOMMENDED COUMADIN/WARFARIN INR THERAPY RANGES STANDARD DOSE: 2.0 - 3.0 Includes: PROPHYLAXIS for venous thrombosis, systemic embolization; TREATMENT for venous thrombosis and/or pulmonary embolus. HIGH RISK: Target INR is 2.5-3.5 for patients with mechanical heart valves. Anti-Nuclear Antibody (JUAN) (09/01/2017 4:33 AM) Component Value Ref Range JUAN Positive (A) Negative Specimen Performing Laboratory [address] [address] TRANSFUSION SERVICE REPORT - SCAN (08/31/2017 5:42 PM)Only the most recent of2 resultswithin the time period is included.Cytology (08/31/2017 12:50 PM) Component Value Ref Range Case Report Medical Cytology Report Case: [id number] Authorizing Provider:Hernan Stuart MDCollected: 08/31/2017 1250 Ordering Location: [place] [address] CCUReceived: 09/02/2017 0842 Pathologist: Jarek Christopher MD Specimen:Pericardial DIAGNOSIS PERICARDIAL FLUID (CYTOSPINS): - NO MALIGNANT CELLS IDENTIFIED Signing Pathologist Direct Phone Line: [phone] CPT Code(s) 41303 CLINICAL DATA Pericardial effusion SPECIMEN SOURCE PERICARDIAL FLUID GROSS DESCRIPTION 10 mls bloody; 4 cytospins Collected: [id number] Received: [id number] STATEMENT OF ADEQUACY Satisfactory Technical component was performed at [facility], Department of Pathology, [address] [place] [id number], Professional component was performed [facility], at Department of Pathology, [address] [place] [id number], Specimen Performing Laboratory Body Fluid - Pericardial [address] [address] TSH/Free T4 If Indicated (08/31/2017 4:53 AM) Component Value Ref Range TSH 1.88 0.35 - 4.94 uIU/mL Specimen Performing Laboratory Blood - Arm, Right [address] [address] Urinalysis w/Microscopic + Reflex to Culture (08/30/2017 6:06 PM) Component Value Ref Range Color, UA Yellow Clarity, UA Clear Specific [place], UA 1.024 1.001 - 1.035 pH, UA 6.0 5.0 - 8.0 Protein, UA 30 mg/dL (A) Negative Glucose, UA Negative Negative Ketones, UA Negative Negative Bilirubin, UA Negative Negative Blood, UA Negative Negative Nitrite, UA Negative Negative Leukocytes, UA Negative Negative Urobilinogen, UA 12.0 (H) 0.2 - 1.0 mg/dL RBC, UA 0 /HPF WBC, UA 5 /HPF Bacteria, UA Rare Mucus Moderate Specimen Source Specimen Performing Laboratory Urine - Urine, Voided [address] [address] Histoplasma antigen, urine (08/30/2017 6:06 PM) Component Value Ref Range Histoplasma Antigen <0.5 ng/mL Comment: REFERENCE RANGE: <0.5 ng/mL Histoplasma galactomannan is frequently detected in urine from patients with disseminated histoplasmosis. However, a negative result does not exclude a diagnosis of histoplasmosis. Many patients with acute pulmonary disease or chronic cavitary disease do not exhibit antigenuria. Galactomannan levels in urine typically decrease with successful treatment. Specimens from patients with other endemic mycoses, such as blastomycosis, coccidioidomycosis, or aspergillosis, may also be positive in this assay. This test should be used in conjunction with other diagnostics tests, including culture, molecular assays, and histology in making a final diagnosis. This test was developed and its analytical performance characteristics have been determined by [facility]. It has not been cleared or approved by the U.S. Food and Drug Administration.The FDA has determined that such clearance or approval is not necessary. This assay has been validated pursuant to the CLIA regulations andis used for clinical purposes. Specimen Performing Laboratory Urine - Urine, Voided [facility] [address] [address] Narrative Performing Lab *[facility] [address] [place] [id number] Tomasz Nunez MD XR chest 1 view portable / bedside (08/30/2017 6:01 PM) Specimen Performing Laboratory GE RIS Narrative FINAL REPORT Chest one view AP 08/30/2017 7:17 PM CLINICAL INDICATION: dyspnea COMPARISON: None available IMPRESSION: Patchy bibasilar opacities may reflect atelectasis or pneumonia. Obscuration of the costophrenic angle suggests small volume bilateral pleural effusions. Cardiomediastinal contours are within normal limits. The central pulmonary vasculature is not engorged. There is stent placement and/or dense calcification along the expected course of the left anterior descending coronary artery. Signed: Dominick Crocker MD Report Verified Date/Time:08/30/2017 19:17:40 Reading Location: [facility] Radiology Reading Room Procedure Note Interface, External Ris In - 08/30/2017 7:19 PM CDT FINAL REPORT Chest one view AP 08/30/2017 7:17 PM CLINICAL INDICATION: dyspnea COMPARISON: None available IMPRESSION: Patchy bibasilar opacities may reflect atelectasis or pneumonia. Obscuration of the costophrenic angle suggests small volume bilateral pleural effusions. Cardiomediastinal contours are within normal limits. The central pulmonary vasculature is not engorged. There is stent placement and/or dense calcification along the expected course of the left anterior descending coronary artery. Signed: Dominick Crocker MD Report Verified Date/Time: 08/30/2017 19:17:40 Reading Location: [facility] Radiology Reading Room Blood culture (08/30/2017 5:38 PM)Only the most recent of2 resultswithin the time period is included. Component Value Ref Range Result No growth in 5 days Specimen Performing Laboratory Blood - Arm, Right [address] [address] Respiratory Panel SLHS (08/30/2017 5:37 PM) Component Value Ref Range Human Metapneumovirus Not detected Not detected, Inconclusive Rhinovirus Not detected Not detected, Inconclusive Influenza A Not detected Not detected, Inconclusive Influenza A subtype H1 Not detected Not detected, Inconclusive Influenza A Subtype H3 Not detected Not detected, Inconclusive Influenza A Subtype H1-2009 Not detected Not detected, Inconclusive Influenza B Not detected Not detected, Inconclusive Respiratory Syncytial Virus Not detected Not detected, Inconclusive Parainfluenza Virus 1 Not detected Not detected, Inconclusive Parainfluenza Virus 2 Not detected Not detected, Inconclusive Parainfluenza virus 3 Not detected Not detected, Inconclusive Parainfluenza Virus 4 Not detected Not detected, Inconclusive Adenovirus Not detected Not detected, Inconclusive Coronavirus 229E Not detected Not detected, Inconclusive Coronavirus HKU1 Not detected Not detected, Inconclusive Coronavirus NL63 Not detected Not detected, Inconclusive Coronavirus OC43 Not detected Not detected, Inconclusive Bordetella Pertussis Not detected Not detected, Inconclusive Chlamydophila Pneumoniae Not detected Not detected, Inconclusive Mycoplasma Pneumoniae Not detected Not detected, Inconclusive Specimen Performing Laboratory Nasopharyngeal - Pericardial [address] [address] Complement Component C3 (08/30/2017 5:37 PM) Component Value Ref Range C3 Complement 118 82 - 193 mg/dL Specimen Performing Laboratory Blood - Arm, Right [address] [address] Complement Component C4 (08/30/2017 5:37 PM) Component Value Ref Range C4 Complement 22 15 - 57 mg/dL Specimen Performing Laboratory Blood - Arm, Right [address] [address] Body fluid culture + gram stain (08/30/2017 11:00 AM) Component Value Ref Range Result No growth Gram Stain Result 2+ WBCs Gram Stain Result No organisms seen Specimen Performing Laboratory Body Fluid - Pericardium [address] [address] Body fluid cell count with differential (08/30/2017 11:00 AM) Component Value Ref Range Appearance Bloody (A) Clear Color Red (A) Colorless, Straw RBCs [address] (H) <=1 /cu mm Adjusted WBC Count [address] (H) <=5 /cu mm Lining Cells 0 <=1 /cu mm % Segs 87 % % Lymphs 2 % % Monos 11 % % Eos 0 % % Baso 0 % Container Body Fluid EDTA Tube Specimen Performing Laboratory Other - EFREN Drain [address] [address] Troponin I (08/30/2017 6:05 AM)Only the most recent of2 resultswithin the time period is included. Component Value Ref Range Troponin I <0.01 0.00 - 0.03 ng/mL Specimen Performing Laboratory Blood - Arm, Left [address] [address] Narrative Troponin I (TnI) levels must be interpreted in the context of the presenting symptoms and the clinical findings. Elevated TnI levels indicate myocardial damage, but are not specific for ischemic heart disease. Elevated TnI levels are seen in patients with other cardiac conditions (including myocarditis and congestive heart failure), and slight TnI elevations occur in patients with other conditions, including sepsis, renal failure, acidosis, acute neurological disease, and persistent tachyarrhythmia. ECG 12 lead (08/29/2017 11:22 PM) Specimen Performing Laboratory GE MUSE Narrative Ventricular Rate 99 BPM Atrial Rate 99 BPM P-R Interval 144 ms QRS Duration 96 ms Q-T Interval 334 ms QTC Calculation(Bazett) 428 ms P [place] 47 degrees R [place] 57 degrees T [place] 48 degrees Normal sinus rhythm Low voltage QRS Nonspecific T wave abnormality Abnormal ECG No previous ECGs available Confirmed by Reji LEVINE MICHAEL ([id number]) on 08/30/2017 7:50:05 AM Procedure Note Interface, External Ris In - 08/30/2017 7:50 AM CDT Ventricular Rate 99 BPM Atrial Rate 99 BPM P-R Interval 144 ms QRS Duration 96 ms Q-T Interval 334 ms QTC Calculation([place]azett) 428 ms P [place] 47 degrees R [place] 57 degrees T [place] 48 degrees Normal sinus rhythm Low voltage QRS Nonspecific T wave abnormality Abnormal ECG No previous ECGs available Confirmed by Reji LEVINE MICHAEL ([id number]) on 08/30/2017 7:50:05 AM C-Reactive Protein (08/29/2017 11:21 PM) Component Value Ref Range CRP 13.13 (H) 0.00 - 0.50 mg/dL Specimen Performing Laboratory Blood [address] [address] Type and screen, automated (08/29/2017 11:10 PM) Component Value Ref Range ABO/RH AUTOMATED (BEAKER) O POSITIVE Ab Scrn NEGATIVE Specimen Performing Laboratory Blood - Arm, [address] [address] PT/aPTT (08/29/2017 11:10 PM) Component Value Ref Range Protime 16.8 (H) 11.7 - 14.7 seconds INR 1.4 <=5.9 PTT 38.7 (H) 22.5 - 36.0 seconds Specimen Performing Laboratory Blood - Arm, [address] [address] Narrative RECOMMENDED COUMADIN/WARFARIN INR THERAPY RANGES STANDARD DOSE: 2.0 - 3.0 Includes: PROPHYLAXIS for venous thrombosis, systemic embolization; TREATMENT for venous thrombosis and/or pulmonary embolus. HIGH RISK: Target INR is 2.5-3.5 for patients with mechanical heart valves. Sedimentation rate (08/29/2017 11:10 PM) Component Value Ref Range Sed Rate >120 (H) 0 - 15 mm/HR Specimen Performing Laboratory Blood - Arm, [address] [address] after 09/04/2016
--- OUTSIDE RECORDS SUMMARY | 2017-09-05 21:55 | XMS REPORT ---
:1990 Author Organization [facility] Address [address] [place] [address] Care Team Providers Name Role Phone UNKNOWN, REFFERING Primary Care Provider Unavailable TATO THORPE Unavailable Unavailable NIKO ROSADO M.D. Unavailable Unavailable Problems This patient has no known problems. Allergies, Adverse Reactions, Alerts This patient has no known allergies or adverse reactions. Medications This patient has no known medications. Encounters Start End Encounter Admission Attending Care Care Encounter Date/Time Date/Time Type Type Clinicians Facility Department ID 2017-08-17 2017-08-21 [facility]patient [facility] [id number] 16:45:00 13:34:00 NIKO Jean M.D. 2017-04-15 2017-04-19 [facility] [id number] 15:43:00 14:07:00 NIKO Jean M.D. Results Test Description Test Time Test Comments Text Results Atomic Results Result Comments BLOOD CULTURE 2017-09-05 00:00:00 Test Item Value Reference Range Comments CULTURE (BEAKER) (test ddzp=3924) No growth in 5 days BLOOD [id number] 00:00:00 Test Item Value Reference Range Comments CULTURE (BEAKER) (test mtiv=2593) No growth in 5 days ANTI-NUCLEAR ANTIBODY (JUAN)2017-09-04 09:46:00 Test Item Value Reference Range Comments ANTI-NUCLEAR ANTIBODY (JUAN) (BEAKER) (test Positive Negative qseh=980) JUAN TITER AND [id number] 09:46:00 Test Item Value Reference Range Comments JUAN TITER (BEAKER) (test fzpi=4410) >=:2560 JUAN PATTERN (BEAKER) (test juyw=8320) Speckled ANTI-DNA [id number] 09:25:00 Test Item Value Reference Range Comments ANTI-DNA TITER (BEAKER) (test pnyc=8329) >=:320 DOUBLE-STRANDED DNA (DSDNA) [id number] 09:24:00 Test Item Value Reference Range Comments ANTI-DNA DS (BEAKER) (test pzoi=2297) Positive [id number] 14:25:00Medical Cytology Report Case: [id number] Authorizing Provider: Hernan Stuart MD Collected: 08/31/2017 1250 Ordering Location: [place] [address] CCU Received: 09/02/2017 0842 Pathologist: Jarek Christopher MD Specimen: Pericardial PERICARDIAL FLUID (CYTOSPINS): - NO MALIGNANT CELLS IDENTIFIED Signing Pathologist Direct Phone Line: [phone] effusionPERICARDIAL FLUID10 mls bloody; 4 cytospinsCollected : [id number]: [id number][facility], Department of Pathology, [address] [place] [address], [facility], [address] [place] [address], GCEX FLUID CULTURE + GRAM [id number] 09:17:00 Test Item Value Reference Range Comments CULTURE (BEAKER) (test mhkl=9036) No growth GRAM STAIN RESULT (BEAKER) (test 2+ WBCs juxg=2440) GRAM STAIN RESULT (BEAKER) (test No organisms seen dbip=35115) BASIC METABOLIC [id number] 06:01:00 Test Item Value Reference Range Comments SODIUM (BEAKER) (test 133 meq/L 136-145 fpje=078) POTASSIUM (BEAKER) (test 4.2 meq/L 3.5-5.1 prdd=039) CHLORIDE (BEAKER) (test 98 meq/L 98-107 jdom=463) CO2 (BEAKER) (test 27 meq/L 22-29 kvow=291) BLOOD UREA NITROGEN 7 mg/dL 7-21 (BEAKER) (test ntod=666) CREATININE (BEAKER) (test 0.69 mg/dL 0.57-1.25 ulko=780) GLUCOSE RANDOM (BEAKER) 91 mg/dL 70-105 (test rttp=525) CALCIUM (BEAKER) (test 8.5 mg/dL 8.4-10.2 raat=054) EGFR (BEAKER) (test 138 mL/min/1.73 sq m ESTIMATED GFR IS NOT bdwg=0591) ACCURATE CREATININE CLEARANCE IN PREDICTING GLOMERULAR FILTRATION RATE. ESTIMATED GFR IS NOT APPLICABLE FOR DIALYSIS PATIENTS. CBC W/PLT COUNT & AUTO [id number] 05:41:00 Test Item Value Reference Range Comments WHITE BLOOD CELL COUNT (BEAKER) (test qunf=336) 6.3 K/ L 3.5-10.5 RED BLOOD CELL COUNT (BEAKER) (test nifi=285) 3.58 M/ L 4.63-6.08 HEMOGLOBIN (BEAKER) (test lsrb=222) 10.0 GM/DL 13.7-17.5 HEMATOCRIT (BEAKER) (test roch=490) 31.2 % 40.1-51.0 MEAN CORPUSCULAR VOLUME (BEAKER) (test ueus=244) 87.2 fL 79.0-92.2 MEAN CORPUSCULAR HEMOGLOBIN (BEAKER) (test 27.9 pg 25.7-32.2 hgov=423) MEAN CORPUSCULAR HEMOGLOBIN CONC (BEAKER) (test 32.1 GM/DL 32.3-36.5 fuik=120) RED CELL DISTRIBUTION WIDTH (BEAKER) (test 12.7 % 11.6-14.4 knra=357) PLATELET COUNT (BEAKER) (test xkvk=541) 366 K/CU MM 150-450 MEAN PLATELET VOLUME (BEAKER) (test nncm=625) 9.3 fL 9.4-12.4 NUCLEATED RED BLOOD CELLS (BEAKER) (test 0 /100 WBC 0-0 gyjr=283) NEUTROPHILS RELATIVE PERCENT (BEAKER) (test 68 % kjig=521) LYMPHOCYTES RELATIVE PERCENT (BEAKER) (test 16 % rhbr=328) MONOCYTES RELATIVE PERCENT (BEAKER) (test 9 % pzfr=443) EOSINOPHILS RELATIVE PERCENT (BEAKER) (test 6 % ugtb=250) BASOPHILS RELATIVE PERCENT (BEAKER) (test 1 % vkpo=630) NEUTROPHILS ABSOLUTE COUNT (BEAKER) (test 4.29 K/ L 1.78-5.38 zgxj=132) LYMPHOCYTES ABSOLUTE COUNT (BEAKER) (test 1.01 K/ L 1.32-3.57 iqxv=186) MONOCYTES ABSOLUTE COUNT (BEAKER) (test 0.57 K/ L 0.30-0.82 ddcl=929) EOSINOPHILS ABSOLUTE COUNT (BEAKER) (test 0.36 K/ L 0.04-0.54 knfk=992) BASOPHILS ABSOLUTE COUNT (BEAKER) (test 0.03 K/ L 0.01-0.08 kqnl=251) IMMATURE GRANULOCYTES-RELATIVE PERCENT (BEAKER) 1 % 0-1 (test twuo=5549) HIV-1 ANTIGEN WITH HIV-1/2 [id number] 11:52:00 Test Item Value Reference Range Comments HIV-1 ANTIGEN WITH HIV 1\T\2 ANTIBODY (2) Nonreactive Nonreactive (BEAKER) (test msvv=4107) BASIC METABOLIC [id number] 05:07:00 Test Item Value Reference Range Comments SODIUM (BEAKER) (test 137 meq/L 136-145 vava=245) POTASSIUM (BEAKER) (test 4.2 meq/L 3.5-5.1 pdup=410) CHLORIDE (BEAKER) (test 101 meq/L 98-107 wsmn=200) CO2 (BEAKER) (test 26 meq/L 22-29 dimg=755) BLOOD UREA NITROGEN 9 mg/dL 7-21 (BEAKER) (test ehst=591) CREATININE (BEAKER) (test 0.75 mg/dL 0.57-1.25 dsmp=870) GLUCOSE RANDOM (BEAKER) 101 mg/dL 70-105 (test jcrg=011) CALCIUM (BEAKER) (test 8.8 mg/dL 8.4-10.2 ntin=869) EGFR (BEAKER) (test 125 mL/min/1.73 sq m ESTIMATED GFR IS NOT wvwr=0346) ACCURATE CREATININE CLEARANCE IN PREDICTING GLOMERULAR FILTRATION RATE. ESTIMATED GFR IS NOT APPLICABLE FOR DIALYSIS PATIENTS. PROTHROMBIN TIME/[id number] 04:54:00 Test Item Value Reference Range Comments PROTIME (BEAKER) (test jquz=858) 15.7 seconds 11.7-14.7 INR (BEAKER) (test xzzj=949) 1.3 <=5.9 RECOMMENDED COUMADIN/WARFARIN INR THERAPY RANGESSTANDARD DOSE: 2.0 - 3.0 Includes: PROPHYLAXIS forvenous thrombosis, systemic embolization; TREATMENT for venous thrombosis and/or pulmonary embolus.HIGH RISK: Target INR is 2.5-3.5 for patients with mechanical heart valves.RESPIRATORY PANEL [id number] 09:00 :00 Test Item Value Reference Range Comments HUMAN METAPNEUMOVIRUS (BEAKER) (test Not detected Not detected, Inconclusive vphf=1973) RHINOVIRUS (BEAKER) (test pxai=0351) Not detected Not detected, Inconclusive INFLUENZA A (BEAKER) (test Not detected Not detected, Inconclusive kitq=9018) INFLUENZA A SUBTYPE H1 (BEAKER) Not detected Not detected, Inconclusive (test adsz=3710) INFLUENZA A SUBTYPE H3 (BEAKER) Not detected Not detected, Inconclusive (test vrbq=5993) INFLUENZA A SUBTYPE H1-2009 (BEAKER) Not detected Not detected, Inconclusive (test omeh=8254) INFLUENZA B (BEAKER) (test Not detected Not detected, Inconclusive mdvc=6569) RESPIRATORY SYNCYTIAL VIRUS (BEAKER) Not detected Not detected, Inconclusive (test jzqt=7606) PARAINFLUENZA VIRUS 1 (BEAKER) (test Not detected Not detected, Inconclusive gdzf=2768) PARAINFLUENZA VIRUS 2 (BEAKER) (test Not detected Not detected, Inconclusive uifw=9580) PARAINFLUENZA VIRUS 3 (BEAKER) (test Not detected Not detected, Inconclusive yfkf=5582) PARAINFLUENZA VIRUS 4 (BEAKER) (test Not detected Not detected, Inconclusive tapc=9346) ADENOVIRUS (BEAKER) (test unka=6113) Not detected Not detected, Inconclusive CORONAVIRUS 229E (BEAKER) (test Not detected Not detected, Inconclusive khdl=9450) CORONAVIRUS HKU1 (BEAKER) (test Not detected Not detected, Inconclusive tiet=8871) CORONAVIRUS NL63 (BEAKER) (test Not detected Not detected, Inconclusive fegj=5352) CORONAVIRUS OC43 (BEAKER) (test Not detected Not detected, Inconclusive lqii=7839) BORDETELLA PERTUSSIS (BEAKER) (test Not detected Not detected, Inconclusive obto=3519) CHLAMYDOPHILA PNEUMONIAE (BEAKER) Not detected Not detected, Inconclusive (test eqxu=8470) MYCOPLASMA PNEUMONIAE (BEAKER) (test Not detected Not detected, Inconclusive avnd=0478) TSH/FREE T4 IF [id number] 06:34:00 Test Item Value Reference Range Comments THYROID STIMULATING HORMONE (BEAKER) (test 1.88 uIU/mL 0.35-4.94 kwpy=531) BASIC METABOLIC [id number] 05:51:00 Test Item Value Reference Range Comments SODIUM (BEAKER) (test 134 meq/L 136-145 xehy=240) POTASSIUM (BEAKER) (test 3.9 meq/L 3.5-5.1 vfeq=446) CHLORIDE (BEAKER) (test 102 meq/L 98-107 qxty=831) CO2 (BEAKER) (test 22 meq/L 22-29 bnnt=109) BLOOD UREA NITROGEN 12 mg/dL 7-21 (BEAKER) (test uizb=335) CREATININE (BEAKER) (test 0.83 mg/dL 0.57-1.25 dywu=891) GLUCOSE RANDOM (BEAKER) 85 mg/dL 70-105 (test gmds=573) CALCIUM (BEAKER) (test 8.2 mg/dL 8.4-10.2 ovkx=802) EGFR (BEAKER) (test 111 mL/min/1.73 sq m ESTIMATED GFR IS NOT ncfr=2310) ACCURATE CREATININE CLEARANCE IN PREDICTING GLOMERULAR FILTRATION RATE. ESTIMATED GFR IS NOT APPLICABLE FOR DIALYSIS PATIENTS. PROTHROMBIN TIME/[id number] 05:18:00 Test Item Value Reference Range Comments PROTIME (BEAKER) (test rkvz=927) 16.5 seconds 11.7-14.7 INR (BEAKER) (test jwwp=935) 1.3 <=5.9 RECOMMENDED COUMADIN/WARFARIN INR THERAPY RANGESSTANDARD DOSE: 2.0 - 3.0 Includes: PROPHYLAXIS forvenous thrombosis, systemic embolization; TREATMENT for venous thrombosis and/or pulmonary embolus.HIGH RISK: Target INR is 2.5-3.5 for patients with mechanical heart valves.URINALYSIS W/ REFLEX URINE [id number] 19:32:00 Test Item Value Reference Range Comments COLOR (BEAKER) (test mkng=931) Yellow CLARITY (BEAKER) (test ofke=441) Clear SPECIFIC GRAVITY UA (BEAKER) (test gslj=824) 1.024 1.001-1.035 PH UA (BEAKER) (test jktk=228) 6.0 5.0-8.0 PROTEIN UA (BEAKER) (test aiqc=099) 30 mg/dL Negative GLUCOSE UA (BEAKER) (test bswp=471) Negative Negative KETONES UA (BEAKER) (test gfln=771) Negative Negative BILIRUBIN UA (BEAKER) (test gzob=354) Negative Negative BLOOD UA (BEAKER) (test dcey=747) Negative Negative NITRITE UA (BEAKER) (test weei=600) Negative Negative LEUKOCYTE ESTERASE UA (BEAKER) (test acph=247) Negative Negative UROBILINOGEN UA (BEAKER) (test pbla=899) 12.0 mg/dL 0.2-1.0 RBC UA (BEAKER) (test cvxd=015) 0 /HPF WBC UA (BEAKER) (test gcec=002) 5 /HPF BACTERIA (BEAKER) (test knbl=563) Rare MUCUS (BEAKER) (test dtgj=4534) Moderate SOURCE(BEAKER) (test lhrw=8610) BODY FLUID CELL COUNT WITH [id number] 19:31:00 Test Item Value Reference Range Comments APPEARANCE FLUID (BEAKER) (test brrq=117) Bloody Clear COLOR FLUID (BEAKER) (test brlf=487) Red Colorless, Straw RBC FLUID (BEAKER) (test lwqx=483) 76010 /cu mm <=1 ADJUSTED WBC FLUID (BEAKER) (test dxgl=7312) 21718 /cu mm <=5 LINING CELLS (BEAKER) (test ubsm=0373) 0 /cu mm <=1 NEUTROPHILS FLUID (BEAKER) (test unpo=4260) 87 % LYMPHS FLUID (BEAKER) (test zqmb=233) 2 % MONO/MACROPHAGE FLUID (BEAKER) (test dvwr=446) 11 % EOSINOPHILS FLUID (BEAKER) (test ljci=527) 0 % BASO FLUID (BEAKER) (test afkb=170) 0 % CONTAINER BODY FLUID (BEAKER) (test pxda=0800) EDTA Tube RAD, CHEST, 1 VIEW, NON [id number] 19:17:00Reason for exam:-> dyspneaShould this be performed at the bedside?->YesFINAL REPORT Chest one view AP 08/30/2017 7:17 [...] left anterior descending coronary artery. Signed: Dominick Raygoza Verified Date/Time: 08/30/2017 19:17:40 ReadingLocation: [facility] Radiology Reading Room Electronically signed by: DOMINICK RAYGOZA M.D. on 07:17 PMCOMPLEMENT COMPONENT [id number] 18:41:00 Test Item Value Reference Range Comments C4 COMPLEMENT (BEAKER) (test mrvd=785) 22 mg/dL 15-57 COMPLEMENT COMPONENT [id number] 18:41:00 Test Item Value Reference Range Comments C3 COMPLEMENT (BEAKER) (test zuxn=005) 118 mg/dL 82-193 TROPONIN [id number] 07:06:00 Test Item Value Reference Range Comments TROPONIN I (BEAKER) (test pijq=101) < ng/mL 0.00-0.03 Troponin I (TnI) levels must be interpreted [...] failure, acidosis, acute neurological disease, and persistent tachyarrhythmia.BASIC METABOLIC [id number] 06:57:00 Test Item Value Reference Range Comments SODIUM (BEAKER) (test 135 meq/L 136-145 drca=608) POTASSIUM (BEAKER) (test 3.8 meq/L 3.5-5.1 twlm=225) CHLORIDE (BEAKER) (test 102 meq/L 98-107 ylhr=520) CO2 (BEAKER) (test 24 meq/L 22-29 yozd=302) BLOOD UREA NITROGEN 12 mg/dL 7-21 (BEAKER) (test gxxr=751) CREATININE (BEAKER) (test 0.81 mg/dL 0.57-1.25 egfd=138) GLUCOSE RANDOM (BEAKER) 90 mg/dL 70-105 (test utnl=173) CALCIUM (BEAKER) (test 8.7 mg/dL 8.4-10.2 rpui=534) EGFR (BEAKER) (test 114 mL/min/1.73 sq m ESTIMATED GFR IS NOT laix=3778) ACCURATE CREATININE CLEARANCE IN PREDICTING GLOMERULAR FILTRATION RATE. ESTIMATED GFR IS NOT APPLICABLE FOR DIALYSIS PATIENTS. PROTHROMBIN TIME/[id number] 06:34:00 Test Item Value Reference Range Comments PROTIME (BEAKER) (test ubsv=075) 16.2 seconds 11.7-14.7 INR (BEAKER) (test hnzy=945) 1.3 <=5.9 RECOMMENDED COUMADIN/WARFARIN INR THERAPY RANGESSTANDARD DOSE: 2.0 - 3.0 Includes: PROPHYLAXIS forvenous thrombosis, systemic embolization; TREATMENT for venous thrombosis and/or pulmonary embolus.HIGH RISK: Target INR is 2.5-3.5 for patients with mechanical heart valves.SEDIMENTATION [id number] 00:34:00 Test Item Value Reference Range Comments SEDIMENTATION RATE, ERYTHROCYTE (BEAKER) (test > mm/HR 0-15 gest=349) TROPONIN [id number] 23:59:00 Test Item Value Reference Range Comments TROPONIN I (BEAKER) (test khsu=962) < ng/mL 0.00-0.03 Troponin I (TnI) levels must be interpreted [...] failure, acidosis, acute neurological disease, and persistent tachyarrhythmia.BASIC METABOLIC [id number] 23:55:00 Test Item Value Reference Range Comments SODIUM (BEAKER) (test 134 meq/L 136-145 rfiv=168) POTASSIUM (BEAKER) (test 3.5 meq/L 3.5-5.1 lncw=087) CHLORIDE (BEAKER) (test 99 meq/L 98-107 hhws=692) CO2 (BEAKER) (test 25 meq/L 22-29 untl=032) BLOOD UREA NITROGEN 11 mg/dL 7-21 (BEAKER) (test vnci=899) CREATININE (BEAKER) (test 0.85 mg/dL 0.57-1.25 yhtn=863) GLUCOSE RANDOM (BEAKER) 83 mg/dL 70-105 (test jvxu=140) CALCIUM (BEAKER) (test 8.4 mg/dL 8.4-10.2 nzum=983) EGFR (BEAKER) (test 108 mL/min/1.73 sq m ESTIMATED GFR IS NOT dxuj=5659) ACCURATE CREATININE CLEARANCE IN PREDICTING GLOMERULAR FILTRATION RATE. ESTIMATED GFR IS NOT APPLICABLE FOR DIALYSIS PATIENTS. C-REACTIVE [id number] 23:53:00 Test Item Value Reference Range Comments C-REACTIVE PROTEIN (BEAKER) (test xeuo=020) 13.13 mg/dL 0.00-0.50 PT/[id number] 23:37:00 Test Item Value Reference Range Comments PROTIME (BEAKER) (test dnbc=969) 16.8 seconds 11.7-14.7 INR (BEAKER) (test ubfr=318) 1.4 <=5.9 PARTIAL THROMBOPLASTIN TIME (BEAKER) (test 38.7 seconds 22.5-36.0 vkgc=397) RECOMMENDED COUMADIN/WARFARIN INR THERAPY RANGESSTANDARD DOSE: 2.0 - 3.0 Includes: PROPHYLAXIS forvenous thrombosis, systemic embolization; TREATMENT for venous thrombosis and/or pulmonary embolus.HIGH RISK: Target INR is 2.5-3.5 for patients with mechanical heart valves.CBC W/PLT COUNT & AUTO [id number] 23:34:00 Test Item Value Reference Range Comments WHITE BLOOD CELL COUNT (BEAKER) (test btmg=467) 11.5 K/ L 3.5-10.5 RED BLOOD CELL COUNT (BEAKER) (test iejz=841) 3.60 M/ L 4.63-6.08 HEMOGLOBIN (BEAKER) (test paii=652) 10.4 GM/DL 13.7-17.5 HEMATOCRIT (BEAKER) (test mwpi=014) 32.3 % 40.1-51.0 MEAN CORPUSCULAR VOLUME (BEAKER) (test rweu=170) 89.7 fL 79.0-92.2 MEAN CORPUSCULAR HEMOGLOBIN (BEAKER) (test 28.9 pg 25.7-32.2 jwqn=207) MEAN CORPUSCULAR HEMOGLOBIN CONC (BEAKER) (test 32.2 GM/DL 32.3-36.5 qxpj=428) RED CELL DISTRIBUTION WIDTH (BEAKER) (test 12.5 % 11.6-14.4 gdax=272) PLATELET COUNT (BEAKER) (test rczh=961) 287 K/CU MM 150-450 MEAN PLATELET VOLUME (BEAKER) (test zrmc=083) 9.3 fL 9.4-12.4 NUCLEATED RED BLOOD CELLS (BEAKER) (test 0 /100 WBC 0-0 ppzi=213) NEUTROPHILS RELATIVE PERCENT (BEAKER) (test 75 % tacj=978) LYMPHOCYTES RELATIVE PERCENT (BEAKER) (test 12 % fbgv=645) MONOCYTES RELATIVE PERCENT (BEAKER) (test 12 % skwf=608) EOSINOPHILS RELATIVE PERCENT (BEAKER) (test 1 % iqme=462) BASOPHILS RELATIVE PERCENT (BEAKER) (test 0 % itnw=492) NEUTROPHILS ABSOLUTE COUNT (BEAKER) (test 8.58 K/ L 1.78-5.38 msto=980) LYMPHOCYTES ABSOLUTE COUNT (BEAKER) (test 1.39 K/ L 1.32-3.57 schg=819) MONOCYTES ABSOLUTE COUNT (BEAKER) (test 1.39 K/ L 0.30-0.82 hzcm=406) EOSINOPHILS ABSOLUTE COUNT (BEAKER) (test 0.07 K/ L 0.04-0.54 zgvz=826) BASOPHILS ABSOLUTE COUNT (BEAKER) (test 0.02 K/ L 0.01-0.08 ljcl=063) IMMATURE GRANULOCYTES-RELATIVE PERCENT (BEAKER) 1 % 0-1 (test lgtf=4558) HIV [id number] 10:53:00 Test Item Value Reference Range Comments HIV 1/2 Antibody (test Non-Reactive Non-Reactive HIV1/2 Antibody screen result code=HIV1/2AB) indicates the absence of HIV1 and KVL0aowqtiakd.However, A Non-Reactive screen result does not rule [...] (test code=HESR) 45 mm/Hr 0-9 Hepatitis Acute [id number] 07:39:00 Test Item Value Reference Range Comments [...] IgM (test Nonreactive Non-Reactive code=HBCABM) C-Reactive Protein, [id number] 07:30:00 Test Item Value Reference Range Comments CRP (test code=CRP) 66.1 mg/L 0.0-5.0 RPR, [id number] 09:33:00 Test Item Value Reference Range Comments RPR (test code=RPR) Non-Reactive Non-Reactive Thyroid Stimulating Hormone (TSH)2017-08-18 07:47:00 Test Item Value Reference Range Comments TSH (test code=TSH) 1.29 mIU/mL 0.270-4.200 Lipid [id number] 07:39:00 Test Item Value Reference Range Comments Cholesterol (test 138 mg/dL 0-200 code=CHOL) Triglycerides (test 169 mg/dL 9-200 code=TRIG) HDL (test code=HDL) 40 mg/dL 40-60 Chol/HDL (test 3.5 Ratio 0.0-5.0 code=CHOLPHDL) LDL, Calculated (test 64 0-130 (NOTE)RISK OF HEART code=LDLC) DISEASEPublished by [place] Heart AssociationAnalyte Optimal Boderline Increased RiskCHOL <200 200-239 >240TRIG <150 150-199 >200HDL Male: >60 <40HDL Female: >60 <50LDL <100 130-159 >160LDL NEAR OPTIMAL IS 100-129 VLDL (test code=VLDL) 34 mg/dL 5-40 LDL/HDL (test code=LDLPHDL) 2 [id number] 18:55:00 Test Item Value Reference Range Comments [...] code=PROPOX) THC (test code=THC) Negative Negative Urinalysis [id number] 18:46:00 Test Item Value Reference Range Comments Color (test code=COLOR) Yellow Yellow,Straw,Pl yellow Clarity (test code=CLAR) Clear Clear Specific [place] (test code=SPGR) 1.024 1.001-1.035 pH (test code=PH) [...] Bacteria (test code=BACT) None /HPF Comprehensive Metabolic [id number] 06:44:00 Test Item Value Reference Range Comments [...] race is not provided, and the patient isAfrican-[place]icar[place], multiply by 1.212. If sex is not [...] the National Kidney Foundation,http://nkdep.nih .gov CBC with [id number] 06:30:00 Test Item Value Reference Range Comments [...] Lymph Abs (test code=ALYMPH) 1.9 K/cumm 0.5-4.6 [place] Abs (test code=AMONO) 0.8 K/cumm 0.0-1.2 Eos Abs (test code=AEOS) 0.25 K/cumm 0.00-0.74 Baso Abs (test code=ABASO) 0.1 K/cumm 0.00-0.21 RPR, [id number] 15:32:00 Test Item Value Reference Range Comments RPR (test code=RPR) Non-Reactive Non-Reactive Lipid [id number] 09:41:00 Test Item Value Reference Range Comments Cholesterol (test 155 mg/dL 0-200 code=CHOL) Triglycerides (test 137 mg/dL 9-200 code=TRIG) HDL (test code=HDL) 40 mg/dL 40-60 Chol/HDL (test 3.9 Ratio 0.0-5.0 code=CHOLPHDL) LDL, Calculated (test 88 0-130 (NOTE)RISK OF HEART code=LDLC) DISEASEPublished by [place] Heart AssociationAnalyte Optimal Boderline Increased RiskCHOL <200 200-239 >240TRIG <150 150-199 >200HDL Male: >60 <40HDL Female: >60 <50LDL <100 130-159 >160LDL NEAR OPTIMAL IS 100-129 VLDL (test code=VLDL) 27 mg/dL 5-40 LDL/HDL (test code=LDLPHDL) 2 Thyroid Stimulating Hormone (TSH)2017-04-16 09:25:00 Test Item Value Reference Range Comments TSH (test code=TSH) 2.86 mIU/mL 0.270-4.200 Alcohol/Ethanol, [id number] 08:01:00 Test Item Value Reference Range Comments Alcohol, Ethyl (test 0.14 g/dL 0.00-0.01 Intoxicated 0.080 g/dL or code=ETOH) more [id number] 04:28:00 Test Item Value Reference Range Comments [...] 0.32 g/dL 0.00-0.01 danny rblv code=ETOHU) Urinalysis [id number] 04:17:00 Test Item Value Reference Range Comments Color (test code=COLOR) Yellow Yellow,Straw,Pl yellow Clarity (test code=CLAR) Clear Clear Specific [place] (test code=SPGR) 1.013 1.001-1.035 pH (test code=PH) [...] Bacteria (test code=BACT) Few /HPF Comprehensive Metabolic [id number] 03:15:00 Test Item Value Reference Range Comments [...] race is not provided, and the patient isAfrican-Nicarag[place], multiply by 1.212. If sex is not [...] the National Kidney Foundation,http://nkdep.nih .gov CBC with [id number] 03:12:00 Test Item Value Reference Range Comments [...] Lymph Abs (test code=ALYMPH) 1.6 K/cumm 0.5-4.6 [place] Abs (test code=AMONO) 0.4 K/cumm 0.0-1.2 Eos Abs (test code=AEOS) 0.42 K/cumm 0.00-0.74 Baso Abs (test code=ABASO) 0.1 K/cumm 0.00-0.21 C difficile Toxins [id number] 09:05:00Specimen: StoolCollected: 01/10/2017 07 :00 Status: Final Last Updated: 01/11/2017 09:05 C DIFF TOXIN (Final) ( Final) 01/11/17 No Clostridium difficile toxin presentGlycosylated [id number] 08:05:00 Test Item Value Reference Range Comments HBA1c (test code=HBA1C) 4.8 % 4.8-5.9 RPR, [id number] 18:31:00 Test Item Value Reference Range Comments RPR (test code=RPR) Non-Reactive Non-Reactive Thyroid Stimulating Hormone (TSH)2017-01-01 10:37:00 Test Item Value Reference Range Comments TSH (test code=TSH) 1.85 mIU/mL 0.270-4.200 Lipid [id number] 10:34:00 Test Item Value Reference Range Comments Cholesterol (test 156 mg/dL 0-200 code=CHOL) Triglycerides (test 159 mg/dL 9-200 code=TRIG) HDL (test code=HDL) 47 mg/dL 40-60 Chol/HDL (test 3.3 Ratio 0.0-5.0 code=CHOLPHDL) LDL, Calculated (test 77 0-130 (NOTE)RISK OF HEART code=LDLC) DISEASEPublished by [place] Heart AssociationAnalyte Optimal Boderline Increased RiskCHOL <200 200-239 >240TRIG <150 150-199 >200HDL Male: >60 <40HDL Female: >60 <50LDL <100 130-159 >160LDL NEAR OPTIMAL IS 100-129 VLDL (test code=VLDL) 32 mg/dL 5-40 LDL/HDL (test code=LDLPHDL) 2 Alcohol/Ethanol, [id number] 09:59:00 Test Item Value Reference Range Comments Alcohol, Ethyl (test 0.09 g/dL 0.00-0.01 Intoxicated 0.080 g/dL or code=ETOH) more CBC with [id number] 02:40:00 Test Item Value Reference Range Comments [...] Lymph Abs (test code=ALYMPH) 1.6 K/cumm 0.5-4.6 [place] Abs (test code=AMONO) 0.3 K/cumm 0.0-1.2 Eos Abs (test code=AEOS) 0.33 K/cumm 0.00-0.74 Baso Abs (test code=ABASO) 0.1 K/cumm 0.00-0.21 [id number] 02:39:00 Test Item Value Reference Range Comments [...] READ BACK LAB VALUESVERIFIED code=ETOHU) BY REPEAT TESTINGHinaEfraín @238am 01/01/2017 [facility] [place] Comprehensive Metabolic [id number] 02:36:00 Test Item Value Reference Range Comments [...] race is not provided, and the patient isAfrican-[place], multiply by 1.212. If sex is not provided, and thepatient is female, multiply by 0.742. Results for patients <18 years ofage have not been validated by the MDRD study and should be interpretedwith caution.eGFR Result Interpretation:eGFR > or=60 is in the Normal RangeeGFR < 60 may mean kidney diseaseeGFR < 15 may mean kidney failureRanges recommended by the National Kidney Foundation,http://nkdep.nih .gov Urinalysis [id number] 02:17:00 Test Item Value Reference Range Comments Color (test code=COLOR) Yellow Yellow,Straw,Pl yellow Clarity (test code=CLAR) Clear Clear Specific [place] (test code=SPGR) 1.010 1.001-1.035 pH (test code=PH) [...]
[2017-09-05 22:36] LABS: Bicarbonate 23 mEq/L (21-31); Glucose Level 189 mg/dL (65-120); Potassium 3.8 mEq/L (3.6-5.0); Sodium Level 141 mEq/L (135-145)
[2017-09-05 22:37] LABS: Absolute Lymphocytes (CBC) 1.5 K/uL (0.7-4.9); Absolute Monocytes 0.6 K/uL (0.1-1.3); Absolute Neutrophil 8.5 K/uL (1.8-8.0); BUN Blood Urea Nitrogen 13 mg/dL (6-20); Basophils % 1.1 % (0-1.3); Eosinophils % 0.3 % (0-4.4); Hematocrit 37.5 % (39.6-49.0); MCH 28.8 pg (27.0-35.0); MCV 85.6 fL (80-100); MPV 7.4 fL (7.6-11.3); Monocytes % 5.6 % (3.3-12.3); RBC Red Blood Cell Count 4.38 M/uL (4.33-5.43)
[2017-09-05 23:18] LABS: Blood Morphology Comment NOT SEEN (NOT SEEN); Platelet Estimate ADEQ
[2017-09-06] MEDS ORDERED: MEPERIDINE HCL 25 MG/0.5 ML ONE (00:40)
[2017-09-06] MEDS ORDERED: METOCLOPRAMIDE 10 MG/2mL INJ ONE (00:40)
[2017-09-06] MEDS ORDERED: NA CHLORIDE 0.9% 1,000 ML ONE (00:41)
[2017-09-06] MEDS ORDERED: ONDANSETRON 4 MG/2 ML VIAL ONE (00:41)
--- NOTE | 2017-09-06 01:28 | ER ---
Nurse's Notes [facility] Name: Lobito Pack Age: 26 yrs Sex: Male : 1990 Arrival Date: 09/05/2017 Time: 21:52 Bed 13 Private MD: Diagnosis: Chest pain, unspecified Presentation: 09/05 21:58 Presenting complaint: Patient states: Reported feeling sharp chest pain that started aj suddenly when laying down just [employer]. Patient reports he had a pericardiocentesis 5 days ago and had 500 ml drained from pericardium. Transition of care: patient was not received from another setting of care. Onset of symptoms was September 05, 2017. Initial Sepsis Screen: Does the patient meet any 2 criteria? No. Patient's initial sepsis screen is negative. Does the patient have a suspected source of infection? No. Patient's initial sepsis screen is negative. Care prior to arrival: None. 21:58 Method Of Arrival: Ambulatory aj 21:58 Acuity: LEON 3 aj Triage Assessment: 22:00 General: Appears in no apparent distress. uncomfortable, Behavior is calm, cooperative, aj appropriate for age, Smells of alcohol. Pain: Complains of pain in chest. Neuro: Level of Consciousness is awake, alert, obeys commands, Oriented to person, place, time, situation, Appropriate for age. Cardiovascular: Reports chest pain, shortness of breath, Capillary refill < 3 seconds in bilateral fingers Patient's skin is warm and dry. Respiratory: Reports shortness of breath Onset: The symptoms/episode began/occurred suddenly, the patient has mild shortness of breath. Derm: Skin is intact, is healthy with good turgor, Skin is pink, warm \T\ dry. normal. 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 - Social history:: Smoking status: Patient uses tobacco products, smokes one-half pack cigarettes per day. - Family history:: not pertinent. - Hospitalizations: : Patient was recently seen at [facility]. Screenin:17 Abuse screen: Denies threats or abuse. Denies injuries from another. Nutritional bs1 screening: No deficits noted. Tuberculosis screening: No symptoms or risk factors identified. Fall Risk None identified. Assessment: 22:05 General: Appears uncomfortable, Behavior is cooperative, anxious, Smells of alcohol. bs1 Pain: Complains of pain in mid chest Pain radiates to to left side/shoulder, down to left lower abdomen Pain currently is 10 out of 10 on a pain scale. Quality of pain is described as sharp. Neuro: Level of Consciousness is awake, alert, obeys commands, Oriented to person, place, time, situation, Appropriate for age General Engineer are equal bilaterally. Cardiovascular: Reports chest pain, shortness of breath, Denies palpitations, Heart tones S1 S2 present Rhythm is regular. Cardiovascular: Capillary refill < 3 seconds Patient's skin is warm and dry. gauze/tegaderm noted to mid chest from pericardiocentesis, clean, dry, intact. Respiratory: Reports shortness of breath on exertion Airway is patent Respiratory effort is even, unlabored, Breath sounds are clear bilaterally. GI:. : No deficits noted. No signs and/or symptoms were reported regarding the genitourinary system. EENT: No deficits noted. No signs and/or symptoms were reported regarding the EENT system. Derm: Skin is intact, Skin is pink, warm \T\ dry. Musculoskeletal: Circulation, motion, and sensation intact. Capillary refill < 3 seconds, Range of motion: intact in all extremities. 22:15 Reassessment: US machine placed at bedside, per Dr Angela verbal order. bs1 22:50 Reassessment: Pending lab/xray results. bs1 23:25 Reassessment: Patient appears in no apparent distress at this time. Patient and/or bs1 family updated on plan of care and expected duration. Pain level reassessed. Patient is alert, oriented x 3, equal unlabored respirations, skin warm/dry/pink. 09/06 01:30 Reassessment: Patient appears in no apparent distress at this time. Patient and/or bs1 family updated on plan of care and expected duration. Pain level reassessed. Patient is alert, oriented x 3, equal unlabored respirations, skin warm/dry/pink. Informed patient of discharge instructions and follow up care. Patient states symptoms have improved. Vital Signs: 09/05 22:00 BP 135 / 79; Pulse 102; Resp 21; Temp 98.6; Pulse Ox 97% on R/A; Weight 90.72 kg; aj Height 5 ft. 10 in. (177.80 cm); Pain 7/10; 22:15 BP 129 / 75; Pulse 97; Resp 16 S; Pulse Ox 96% on R/A; Pain 8/10; bs1 23:38 BP 105 / 57; Pulse 88; Resp 16; Pulse Ox 97% on R/A; Pain 3/10; bs1 09/06 00:09 BP 154 / 72; Pulse 68; Resp 16 S; Pulse Ox 96% on R/A; jd3 01:03 BP 111 / 62; Pulse 80; Resp 16; Pulse Ox 99% on R/A; bs1 01:40 BP 119 / 65; Pulse 79; Resp 15; Temp 97.7(O); Pulse Ox 97% on R/A; Pain 3/10; bs1 09/05 22:00 Body Mass Index 28.70 (90.72 kg, 177.80 cm) aj ED Course: 09/05 21:52 Patient arrived in ED. ds1 21:59 Triage completed. aj 22:00 Arm band placed on right wrist. Patient placed in an exam room. aj 22:09 Sean Angela MD is Attending Physician. rn 22:15 Inserted saline lock: 20 gauge in left forearm, using aseptic technique. bs1 22:39 X-ray completed. Portable x-ray completed in exam room. Patient tolerated procedure kp1 well. 22:42 Kylee Aguirre, RONA is Primary Nurse. bs1 22:44 XRAY Chest (1 view) In Process Unspecified. EDMS 23:18 Patient has correct armband on for positive identification. Call light in reach. Side bs1 rails up X 1. Pulse ox on. NIBP on. Warm blanket given. 09/06 00:16 CT Chest For PE Angio In Process Unspecified. EDMS 01:44 No provider procedures requiring assistance completed. IV discontinued, bleeding bs1 controlled, No redness/swelling at site. Pressure dressing applied. Administered Medications: No medications were administered Outcome: 01:27 Discharge ordered by . rn 01:45 Discharged to home ambulatory. bs1 01:45 Condition: stable 01:45 Discharge instructions given to patient, Instructed on discharge instructions, follow up and referral plans. Demonstrated understanding of instructions, follow-up care. 01:45 Patient left the ED. bs1 Signatures: Dispatcher [employer] EDAnastacia Sarkar, RN RN Callie Stafford ds1 Sean Angela MD MD rn Poole, Kathy kp1 Jose Dubose RN RN jd3 Salazar, Brittany, RN RN bs1 Corrections: (The following items were deleted from the chart) 02:13 01:30 Reassessment: Patient appears in no apparent distress at this time. Patient bs1 and/or family updated on plan of care and expected duration. Pain level reassessed. Patient is alert, oriented x 3, equal unlabored respirations, skin warm/dry/pink. Patient states symptoms have improved. bs1
--- NOTE | 2017-09-06 01:28 | EDPHYS ---
Physician Documentation [facility] Name: Lobito Pack Age: 26 yrs Sex: Male : 1990 Arrival Date: 09/05/2017 Time: 21:52 Bed 13 Private MD: ED Physician Sean Angela HPI: 09/05 23:35 This 26 yrs old Male presents to ER via Ambulatory with complaints of rn Shortness Of Breath, L Side Pain. 23:35 The patient has shortness of breath at rest. Onset: The symptoms/episode began/occurred rn today. Duration: The symptoms are intermittent. Associated signs and symptoms: Pertinent positives: chest pain, Pertinent negatives: productive cough, fever, hemoptysis, loss of consciousness. Severity of symptoms: At their worst the symptoms were mild in the emergency department the symptoms are unchanged. The patient has experienced a previous episode. 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 . 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 - Social history:: Smoking status: Patient uses tobacco products, smokes one-half pack cigarettes per day. - Family history:: not pertinent. - Hospitalizations: : Patient was [facility] at [facility]. ROS: 23:35 Constitutional: Negative for fever, chills, and weight loss, Eyes: Negative for injury, rn pain, redness, and discharge, Neck: Negative for injury, pain, and swelling, Cardiovascular: Negative for palpitations, and edema, Respiratory: Negative for cough, wheezing Abdomen/GI: Negative for abdominal pain, nausea, vomiting, diarrhea, and constipation, Back: Negative for injury and pain, MS/Extremity: Negative for injury and deformity, Skin: Negative for injury, rash, and discoloration, Neuro: Negative for headache, weakness, numbness, tingling, and seizure. Exam: 23:35 Constitutional: This is a well developed, well nourished patient who is awake, alert, rn and in no acute distress. Head/Face: Normocephalic, atraumatic. Eyes: Pupils equal round and reactive to light, extra-ocular motions intact. Lids and lashes normal. Conjunctiva and sclera are non-icteric and not injected. Cornea within normal limits. Periorbital areas with no swelling, redness, or edema. Neck: Trachea midline, no thyromegaly or masses palpated, and no cervical lymphadenopathy. Supple, full range of motion without nuchal rigidity, or vertebral point tenderness. No Meningismus. Chest/axilla: + bandage in place inferior to xiphoid, mild ecchymosis, no crepitus, no signs of infection Cardiovascular: Regular rate and rhythm with a normal S1 and S2. No gallops, murmurs, or rubs. Normal PMI, no JVD. No pulse deficits. Respiratory: Lungs have equal breath sounds bilaterally, clear to auscultation and percussion. No rales, rhonchi or wheezes noted. No increased work of breathing, no retractions or nasal flaring. Abdomen/GI: Soft, non-tender, with normal bowel sounds. No distension or tympany. No guarding or rebound. No evidence of tenderness throughout. MS/ Extremity: Pulses equal, no cyanosis. Neurovascular intact. Full, normal range of motion. Equal circumference. Neuro: Awake and alert, GCS 15, oriented to person, place, time, and situation. Cranial nerves II-XII grossly intact. Motor strength 5/5 in all extremities. Sensory grossly intact. Cerebellar exam normal. Normal gait. Vital Signs: 22:00 BP 135 / 79; Pulse 102; Resp 21; Temp 98.6; Pulse Ox 97% on R/A; Weight 90.72 kg; aj Height 5 ft. 10 in. (177.80 cm); Pain 7/10; 22:15 BP 129 / 75; Pulse 97; Resp 16 S; Pulse Ox 96% on R/A; Pain 8/10; bs1 23:38 BP 105 / 57; Pulse 88; Resp 16; Pulse Ox 97% on R/A; Pain 3/10; bs1 09/06 00:09 BP 154 / 72; Pulse 68; Resp 16 S; Pulse Ox 96% on R/A; jd3 01:03 BP 111 / 62; Pulse 80; Resp 16; Pulse Ox 99% on R/A; bs1 01:40 BP 119 / 65; Pulse 79; Resp 15; Temp 97.7(O); Pulse Ox 97% on R/A; Pain 3/10; bs1 09/05 22:00 Body Mass Index 28.70 (90.72 kg, 177.80 cm) aj Procedures: 00:08 Ultrasound: Type: Bedside u/s ECHO without pericardial effusion, good global rn contraction. . MDM: 09/05 22:09 Patient medically screened. rn 09/06 00:08 ED course: Xray shows marked decrease in size of heart from last visit when diagnosed rn with pericardial effusion.. 01:25 Differential diagnosis: Anxiety Reaction Myocardial Infarction pneumonia, Pneumothorax rn Psychogenic pulmonary edema, Pulmonary Embolism. Data reviewed: vital signs, nurses notes, lab test result(s), EKG, radiologic studies, CT scan, plain films, and as a result, I will discharge patient. Counseling: I had a detailed discussion with the patient and/or guardian regarding: the historical points, exam findings, and any diagnostic results supporting the discharge/admit diagnosis, lab results, radiology results, the need for outpatient follow up, to return to the emergency department if symptoms worsen or persist or if there are any questions or concerns that arise at home. Special discussion: Based on the patient's history, exam, and Dx evaluation, there is no indication for emergent intervention or inpatient Tx. It is understood by the patient/guardian that if the Sx's persist or worsen they need to return immediately for re-evaluation. I discussed with the patient/guardian in detail that at this point there is no indication for admission to the hospital. It is understood, however, that if the symptoms persist or worsen the patient needs to return immediately for re-evaluation. 09/05 22:15 Order name: CBC with Diff; Complete Time: 23:25 rn 09/05 22:15 Order name: Basic Metabolic Panel; Complete Time: 23: rn 09/05 22:15 Order name: Troponin (emerg Dept Use Only); Complete Time: 23:25 rn 09/05 22:15 Order name: XRAY Chest (1 view) rn 09/05 22:45 Order name: Manual Differential; Complete Time: 23:25 EDMS 09/05 23:30 Order name: CT Chest For PE Angio rn 09/05 22:15 Order name: IV Start; Complete Time: 22:42 rn 09/05 22:15 Order name: EKG; Complete Time: 22:15 rn 09/05 22:15 Order name: EKG - Nurse/Tech; Complete Time: 22:42 rn Administered Medications: No medications were administered Disposition: 09/06/17 01:27 Discharged to Home. Impression: Chest pain, unspecified. - Condition is Stable. - Discharge Instructions: Nonspecific Chest Pain. - Medication Reconciliation Form, Thank You Letter, Antibiotic Education, Prescription Opioid Use form. - Follow up: Private Physician; When: As needed; Reason: Recheck today's complaints, Re-evaluation by your physician. - Problem is new. - Symptoms have improved. Signatures: Dispatcher [employer] EDAnastacia Sarkar, RN RN Sean Almonte MD MD rn Salazar, Brittany, RN RN bs1 Corrections: (The following items were deleted from the chart) 01:45 01:27 09/06/2017 01:27 Discharged to Home. Impression: Chest pain, unspecified. bs1 Condition is Stable. Forms are Medication Reconciliation Form, Thank You Letter, Antibiotic Education, Prescription Opioid Use. Follow up: Private Physician; When: As needed; Reason: Recheck today's complaints, Re-evaluation by your physician. Problem is new. Symptoms have improved. rn
[2017-09-06] MEDS ORDERED: cloNIDine HCl 0.1 MG TAB ONE (02:06)
--- NOTE | 2017-09-06 08:07 | RAD REPORT ---
EXAM DESCRIPTION: RAD - Chest Single View - 09/05/2017 10:44 pm CLINICAL HISTORY: Chest pain. COMPARISON: 08/29/2017 FINDINGS: Portable technique limits examination quality. Mild linear subsegmental atelectasis is present in the left lower lobe. A small left pleural effusion is likely. The heart is upper limit normal in size. There has been reduction in the size of the card iac silhouette since comparative study. No displaced fractures.
--- NOTE | 2017-09-06 08:16 | RAD REPORT ---
EXAM DESCRIPTION: CT - Chest For Pe Angio - 09/06/2017 6:31 am CLINICAL HISTORY: Chest pain. COMPARISON: 08/29/2017 TECHNIQUE: CT angiogram of the pulmonary arteries was performed with MIP. All CT scans are performed using dose optimization technique as appropriate and may include automated exposure control or mA/KV adjustment according to patient size. FINDINGS: No evidence of pulmonary thromboembolism. Linear subsegmental atelectasis is noted in the left lung base. No focal consolidation typical of pne umonia seen. No acute aortic abnormality seen. Small amount of pericardial fluid is present, significantly less than on the prior study. Small left pleural effusion is present. Bilateral gynecomastia is seen. No concerning bony finding. Mildly prominent axillary lymph nodes bilaterally appear mildly decreased in size. IMPRESSION: No evidence of pulmonary thromboembolism. Interval significant reduction in size of pericardial effusion. Small left pleural effusion with left basilar atelectasis noted.
--- NOTE | 2017-09-06 10:28 | EKG ---
Test Date: 2017-09-05 Test Time: 22:06:14 Client Solutions Director: ISELA MEASUREMENT RESULTS: Intervals: Rate: 92 ID: [id number] QRSD: 94 QT: 366 QTc: 452 Salvo: P: 60 ID: [id number] QRS: 90 T: 121 INTERPRETIVE STATEMENTS: Normal sinus rhythm Rightward axis Nonspecific ST and T wave abnormality Abnormal ECG Compared to ECG 08/29/2017 16:08:47 Right-axis deviation now present ST (T wave) deviation now present Sinus tachycardia no longer present Electronically Signed On 09-06-17 10:27:09 CDT by Julio C Robledo
== END 2017-09-06 01:45 | disposition home or self-care (01) ==
LOC: ER 21:51
DX: R07.9 Chest pain, unspecified (principal); F17.210 Nicotine dependence, cigarettes, uncomplicated; F32.9 Major depressive disorder, single episode, unspecified; F10.20 Alcohol dependence, uncomplicated; Z88.6 Allergy status to analgesic agent
CPT/HCPCS: 36415; 71045; 71275; 80048; 84484; 85025; 93005; 99284; J2175; J2405; J2765; J7030; Q9967

== ENCOUNTER 2017-09-17 15:03 | Emergency (ER) | payer OTHER ==
--- OUTSIDE RECORDS SUMMARY | 2017-09-17 15:05 | XMS REPORT | Clinical Summary ---
:[address] [facility] Address [address] [place] [address] Phone Care Team Providers Name Role Phone [...] MD Benjamin unspecified depression type;Tobacco abuse after 09/16/2016 Family History Medical History Relation Name Comments [...] 08/30/2017 11:23 AM CDT Pericardial effusion after 09/16/2016 Results RHYTHM STRIP - SCAN (09/05/2017 12:40 [...] Scan Result 0 Specimen Performing Laboratory Blood [facility] [address] [facility], [address] [place] [address] CBC with platelet count + automated diff [...] - 1 % Specimen Performing Laboratory Blood [facility] [address] [place] [address] [place] [address] CBC with platelet count + automated diff (09/02/2017 5:25 AM)Only the most recent of2 resultswithin the time period is included. Specimen Performing Laboratory Blood [facility] The following orders were created for panel order CBC with platelet count + automated diff. Procedure Abnormality Status --------- ------ CBC with platelet count ...[[id number]]AbnormalFinal result Please view results for these tests [...] DIALYSIS PATIENTS. Specimen Performing Laboratory Blood [facility] [address] [address] 2D Echo W/Doppler(CW/PW/Color) (09/01/2017 4:03 PM)Only the most recent of3 resultswithin the time period is included. Component Value Ref Range Ejection Fraction Specimen Performing Laboratory [facility] ECHO HEARTLAB MKCKESSON CPACS Narrative Transthoracic Echocardiography Report (TTE) Demographics Patient Name LOBITO LOUISE Date of Study09/01/2017 [id number] Gender Male Visit Number [id number] Race [id number] Number [id number] Number Date of Birth1990 Referring PhysicianEvelnye Ruiz Age26 year(s) SonographPEYMAN Roberson AnalystAriadnaInterpreting Jakob [...] of Study 09/01/2017 Gender Male Visit Number [id number] Race Room Number [id number] Number Date of 1990 Referring Physician Evelyne Ruiz Age 26 year(s) Parking Lot Spotter Radah Turk [facility] Leader Tier Stella Interpreting Fazal Bailey Physician Procedure Type [...] Antibody Nonreactive Nonreactive Specimen Performing Laboratory Blood [address] [address] Sjogren's antibodies (09/01/2017 4:33 AM) Component Value Ref Range Anti-Ss-A <1.0 NEG <1.0 NEGATIVE AI Anti-Ss-B <1.0 NEG <1.0 NEGATIVE AI Specimen Performing Laboratory Blood [facility] [address] [address] Narrative Performing Lab [facility] [address] [address] Emil Darnell MD, PhD, PHANI Anti-DNA Titer (09/01/2017 4:33 AM) Component Value Ref Range Anti-DNA Titer >=1:320 Specimen Performing Laboratory Blood [address] [address] Actin (Smooth Muscle) Antibody, IgG (09/01/2017 4:33 [...] Specimen Performing Laboratory Blood [facility] [address] [place] [address] Narrative Performing Lab E[facility] [address] [place] [address] Emil Darnell MD, PhD, PHANI JUAN Titer & Pattern (09/01/2017 4:33 AM) Component Value Ref Range JUAN Titer >=1:2560 JUAN Pattern Speckled Specimen Performing Laboratory [address] [address] Double-Stranded DNA (dsDNA) Antibody (09/01/2017 4:33 AM) Component Value Ref Range ds DNA Ab Positive Specimen Performing Laboratory [address] [address] Prothrombin time/INR (09/01/2017 4:33 AM)Only the most recent of3 resultswithin the time period is included. Component Value Ref Range Protime 15.7 (H) 11.7 - 14.7 seconds INR 1.3 <=5.9 Specimen Performing Laboratory [address] [address] Narrative RECOMMENDED COUMADIN/WARFARIN INR THERAPY RANGES STANDARD DOSE: 2.0 - 3.0 Includes: PROPHYLAXIS for venous thrombosis, systemic embolization; TREATMENT for venous thrombosis and/or pulmonary embolus. HIGH RISK: Target INR is 2.5-3.5 for patients with mechanical heart valves. Anti-Nuclear Antibody (JUAN) (09/01/2017 4:33 AM) Component Value Ref Range JUAN Positive (A) Negative Specimen Performing Laboratory [address] [address] TRANSFUSION SERVICE REPORT - SCAN (08/31/2017 5:42 PM)Only the most recent of2 resultswithin the time period is included.Cytology (08/31/2017 12:50 PM) Component Value Ref Range Case Report Medical Cytology Report Case: [id number] Authorizing Provider:Hernan Stuart MDCollected: 08/31/2017 1250 Ordering Location: [place] [address] CCUReceived: 09/02/2017 0842 Pathologist: Jarek Christopher MD Specimen:Pericardial DIAGNOSIS PERICARDIAL FLUID (CYTOSPINS): - NO MALIGNANT CELLS IDENTIFIED Signing Pathologist Direct Phone Line: [phone] CPT Code(s) 50129 CLINICAL DATA Pericardial effusion SPECIMEN SOURCE PERICARDIAL FLUID GROSS DESCRIPTION 10 mls bloody; 4 cytospins Collected: [id number] Received: [id number] STATEMENT OF ADEQUACY Satisfactory Technical component was performed at [facility], Department of Pathology, [address] [place] [address], Professional component was performed [facility], at Department of Pathology, [address] [place] [address], Specimen Performing Laboratory Body Fluid - Pericardial [address] [address] TSH/Free T4 If Indicated (08/31/2017 4:53 AM) Component Value Ref Range TSH 1.88 0.35 - 4.94 uIU/mL Specimen Performing Laboratory Blood - Arm, Right [address] [address] Urinalysis w/Microscopic + Reflex to Culture (08/30/2017 6:06 PM) Component Value Ref Range Color, UA Yellow Clarity, UA Clear Specific [place], UA 1.024 1.001 - 1.035 pH, UA [...] Specimen Performing Laboratory Urine - Urine, Voided [address] [address] Histoplasma antigen, urine (08/30/2017 6:06 PM) Component [...] analytical performance characteristics have been determined by [facility]. It has not been cleared or approved by the U.S. Food and Drug Administration.The FDA has determined that such clearance or approval is not necessary. This assay has been validated pursuant to the CLIA regulations andis used for clinical purposes. Specimen Performing Laboratory Urine - Urine, Voided [facility] [address] [address] Narrative Performing Lab *QDID [facility] [address] [place] [phone] Tomasz Nunez MD XR chest 1 view [...] MD Report Verified Date/Time:08/30/2017 19:17:40 Reading Location: [facility] Radiology Reading Room Procedure Note Interface, External [...] Report Verified Date/Time: 08/30/2017 19:17:40 Reading Location: [facility] Radiology Reading Room Blood culture (08/30/2017 5:38 PM)Only the most recent of2 resultswithin the time period is included. Component Value Ref Range Result No growth in 5 days Specimen Performing Laboratory Blood - Arm, Right [address] [address] Respiratory Panel [facility] (08/30/2017 5:37 PM) Component [...] Inconclusive Specimen Performing Laboratory Nasopharyngeal - Pericardial [address] [address] Complement Component C3 (08/30/2017 5:37 PM) Component Value Ref Range C3 Complement 118 82 - 193 mg/dL Specimen Performing Laboratory Blood - Arm, Right [address] [address] Complement Component C4 (08/30/2017 5:37 PM) Component Value Ref Range C4 Complement 22 15 - 57 mg/dL Specimen Performing Laboratory Blood - Arm, Right [address] [address] Body fluid culture + gram stain (08/30/2017 11:00 AM) Component Value Ref Range Result No growth Gram Stain Result 2+ WBCs Gram Stain Result No organisms seen Specimen Performing Laboratory Body Fluid - Pericardium [address] [address] Body fluid cell count with differential (08/30/2017 11:00 AM) Component Value Ref Range Appearance Bloody (A) Clear Color Red (A) Colorless, Straw RBCs [address] (H) <=1 /cu mm Adjusted WBC Count [address] (H) <=5 /cu mm Lining Cells 0 <=1 /cu mm % Segs 87 % % Lymphs 2 % % Monos 11 % % Eos 0 % % Baso 0 % Container Body Fluid EDTA Tube Specimen Performing Laboratory Other - EFREN Drain [address] [address] Troponin I (08/30/2017 6:05 AM)Only the most recent of2 resultswithin the time period is included. Component Value Ref Range Troponin I <0.01 0.00 - 0.03 ng/mL Specimen Performing Laboratory Blood - Arm, Left [address] [address] Narrative Troponin I (TnI) levels must be [...] 334 ms QTC Calculation(Bazett) 428 ms P Duke 47 degrees R Duke 57 degrees T Duke 48 degrees Normal sinus rhythm Low voltage [...] 334 ms QTC Calculation(Bazett) 428 ms P Duke 47 degrees R Duke 57 degrees T Duke 48 degrees Normal sinus rhythm Low voltage QRS Nonspecific T wave abnormality Abnormal ECG No previous ECGs available Confirmed by Reji LEVINE MICHAEL ([id number]) on 08/30/2017 7:50:05 AM C-Reactive Protein (08/29/2017 11:21 PM) Component Value Ref Range CRP 13.13 (H) 0.00 - 0.50 mg/dL Specimen Performing Laboratory Blood [address] [address] Type and screen, automated (08/29/2017 11:10 PM) Component Value Ref Range ABO/RH AUTOMATED (BEAKER) O POSITIVE Ab Scrn NEGATIVE Specimen Performing Laboratory Blood - Arm, [address] [address] PT/aPTT (08/29/2017 11:10 PM) Component Value Ref Range Protime 16.8 (H) 11.7 - 14.7 seconds INR 1.4 <=5.9 PTT 38.7 (H) 22.5 - 36.0 seconds Specimen Performing Laboratory Blood - Arm, [address] [address] Narrative RECOMMENDED COUMADIN/WARFARIN INR THERAPY RANGES STANDARD DOSE: 2.0 - 3.0 Includes: PROPHYLAXIS for venous thrombosis, systemic embolization; TREATMENT for venous thrombosis and/or pulmonary embolus. HIGH RISK: Target INR is 2.5-3.5 for patients with mechanical heart valves. Sedimentation rate (08/29/2017 11:10 PM) Component Value Ref Range Sed Rate >120 (H) 0 - 15 mm/HR Specimen Performing Laboratory Blood - Arm, [address] [address] after 09/16/2016
--- OUTSIDE RECORDS SUMMARY | 2017-09-17 15:05 | XMS REPORT | Clinical Summary ---
:1990 Author Organization [facility] Address [address] [place] [address] Care Team Providers Name Role Phone Asked, [...] Bradshaw MD 02/11/2017 Ivan Kaplan MD after 09/16/2016 Social History Tobacco Use Types Packs/Day Years [...] Left (02/07/2017 7:15 PM) Specimen Performing Laboratory [facility] [address] [address] Narrative EXAMINATION:XR ELBOW 2 VW LEFT CLINICAL HISTORY:ARTHRITISELBOW COMPARISON:None. IMPRESSION: There is a small elbow joint effusion. There are no bony changes to suggest degenerative arthritis or obvious inflammatory arthritis otherwise. Bone mineralization is normal. There is no focal bone lesion. [facility]-[id number] Procedure Note Hm Interface, Radiology Results Incoming - 02/07/2017 9:35 PM CDT EXAMINATION: XR ELBOW 2 VW LEFT CLINICAL HISTORY: ARTHRITIS ELBOW COMPARISON: None. IMPRESSION: There is a small elbow joint effusion. There are no bony changes to suggest degenerative arthritis or obvious inflammatory arthritis otherwise. Bone mineralization is normal. There is no focal bone lesion. [facility]-[id number] CT Head Wo Contrast (02/04/2017 10:53 AM) Specimen Performing Laboratory [facility] [address] [place] [address] Narrative EXAMINATION: CT HEAD WO CONTRAST CLINICAL [...] for additional pertinent findings, details and comments. [id number] Procedure Note Interface, Radiology Results Incoming - [...] for additional pertinent findings, details and comments. [id number] Urine drugs of abuse screen (02/04/2017 8:00 AM) Component Value Ref Range Amphetamine screen, urine Positive (A) Barbiturate screen, urine Negative Benzodiazepine screen, urine Negative Cannabinoid screen, urine Negative Cocaine screen, urine Negative Methadone metabolite (EDDP), urine Negative Opiates screen, urine Negative Oxycodone screen, urine Negative Phencyclidine screen, urine Negative Tricyclic screen, urine Negative Comment: Drug screen minimum concentration of detectability Khjinxsxvigy7665 ng/mL Barbiturates 200 ng/mL Odipozafbreywyh343 ng/mL Tupzode880 ng/mL Rudprfvlv610 ng/mL Jrhdlqd671 ng/mL Dpovjfeyx063 ng/mL Phencyclidine 25 ng/mL Tipugnvboqjf35 ng/mL Ztpmobrmkc9314 ng/mL Negative test results indicates presumptive evidence of lack of clinically significant drug concentration in this urine specimen. Positive test results are presumptive evidence of clinically significant drug concentration in this urine specimen. Testing performed for medical purposes only. Specimen Performing Laboratory Urine [facility] DEPARTMENT OF PATHOLOGY AND GENOMIC MEDICINE [address] [place] [address] Syphilis treponemal IgG (02/04/2017 6:00 AM) Component Value Ref Range Syphilis treponemal IgG Non-reactiveComment: Non-reactive: No Non-reactive serological evidence of Syphilis infection Specimen Performing Laboratory Serum [facility] DEPARTMENT OF PATHOLOGY AND [facility] [address] [place] [address] Thyroid stimulating hormone (02/04/2017 6:00 AM) Component Value Ref Range TSH 2.25 0.27 - 4.20 uIU/mL Specimen Performing Laboratory Plasma specimen [facility] DEPARTMENT OF PATHOLOGY AND GENOMIC MEDICINE [address] [place] [address] Hemoglobin A1c (02/04/2017 6:00 AM) Component Value [...] type 1 diabetes. Specimen Performing Laboratory Blood [facility] OF PATHOLOGY AND [facility] [address] [place] [address] Hepatic function panel (02/04/2017 6:00 AM) Component Value Ref Range Albumin 3.2 (L) 3.5 - 5.0 g/dL Total bilirubin 0.4 0.0 - 1.2 mg/dL Bilirubin direct <0.2 0.0 - 0.3 mg/dL Alkaline phosphatase 91 40 - 129 U/L Protein 7.5 6.3 - 8.3 g/dL Comment: [place] 4.6-7.0 g/dL 1 week 4.4-7.6 g/dL 7 months-1year5.1-7.3 g/dL 1-2 years5.6-7.5 g/dL >3 years6.0-8.0 g/dL 18-150 6.3-8.3 g/dL ALT 47 5 - 50 U/L AST 36 10 - 50 U/L Specimen Performing Laboratory Plasma specimen [facility] DEPARTMENT OF PATHOLOGY AND GENOMIC MEDICINE [address] [place] [address] Lipid panel (02/04/2017 6:00 AM) Component Value Ref Range Cholesterol 113 <200 mg/dL Triglycerides 62 <150 mg/dL HDL cholesterol 38 (L) >40 mg/dL LDL cholesterol 69Comment: Result obtained by direct LDL <100 mg/dL measurement Lipid panel interpretation SeeBelow Comment: Total Cholesterol (mg/dL) <200 Desirable [id number]-reeu >=240High Triglycerides (mg/dL) <150 Normal [phone]-fgjz 200-499High >=500Very high HDL Cholesterol (mg/dL) <40Low (male) <40Low (female) LDL Cholesterol (mg/dL) <100 Optimal 100-129Near or above optimal [phone]-jpnt 160-189High >=190Very high Risk Catergories that modify [...] (>=200 mg/dL) Specimen Performing Laboratory Plasma specimen [facility] DEPARTMENT OF PATHOLOGY AND GENOMIC MEDICINE [address] [place] [address] ECG 12 lead (02/03/2017 7:34 PM) Component Value Ref Range Ventricular rate 79 Atrial rate 79 AR interval 146 QRSD interval 98 QT interval 388 QTC interval 444 P axis 1 59 QRS axis 1 79 T wave axis 70 EKG impression Normal sinus rhythm-Normal ECG-No previous ECGs available- Specimen Performing Laboratory [facility] [address] [place] [address] after 09/16/2016
--- OUTSIDE RECORDS SUMMARY | 2017-09-17 15:06 | XMS REPORT ---
:1990 [facility] Address [address] [place] [address] Care Team Providers Name Role Phone UNKNOWN, [...] Clinicians Facility Department ID 2017-08-17 2017-08-21 Inpatient [facility] [id number] 16:45:00 13:34:00 NIKO Jean M.D. 2017-04-15 2017-04-19 Inpatient [facility] [id number] 15:43:00 14:07:00 NIKO Jean M.D. Results Test Description Test Time Test Comments Text Results Atomic Results Result Comments BLOOD CULTURE 2017-09-05 00:00:00 Test Item Value Reference Range Comments CULTURE (BEAKER) (test bmyn=8864) No growth in 5 days BLOOD [id number] 00:00:00 Test Item Value Reference Range Comments CULTURE (BEAKER) (test yuyn=9477) No growth in 5 days ANTI-NUCLEAR ANTIBODY (JUAN)2017-09-04 09:46:00 Test Item Value Reference Range Comments ANTI-NUCLEAR ANTIBODY (JUAN) (BEAKER) (test Positive Negative kthi=460) JUAN TITER AND [id number] 09:46:00 Test Item Value Reference Range Comments JUAN TITER (BEAKER) (test ctiz=9724) >=:2560 JUAN PATTERN (BEAKER) (test xpqo=2323) Speckled ANTI-DNA [id number] 09:25:00 Test Item Value Reference Range Comments ANTI-DNA TITER (BEAKER) (test tzqd=2148) >=:320 DOUBLE-STRANDED DNA (DSDNA) [id number] 09:24:00 Test Item Value Reference Range Comments ANTI-DNA DS (BEAKER) (test wuqx=4987) Positive [id number] 14:25:00Medical Cytology Report Case: [id number] Authorizing Provider: Hernan Stuart MD Collected: 08/31/2017 1250 Ordering Location: [place] [address] CCU Received: 09/02/2017 0842 Pathologist: Jarek Christopher MD Specimen: Pericardial PERICARDIAL FLUID (CYTOSPINS): - NO MALIGNANT CELLS IDENTIFIED Signing Pathologist Direct Phone Line: [phone] effusionPERICARDIAL FLUID10 mls bloody; 4 cytospinsCollected : [id number]: [id number]r [facility], Department of Pathology, [address] [place] [address], [facility], [facility] of [facility], [address] [place] [address], RHIB FLUID CULTURE + GRAM [id number] 09:17:00 Test Item Value Reference Range Comments CULTURE (BEAKER) (test gyrl=6978) No growth GRAM STAIN RESULT (BEAKER) (test 2+ WBCs utqg=0250) GRAM STAIN RESULT (BEAKER) (test No organisms seen bhld=34645) BASIC METABOLIC [id number] 06:01:00 Test Item Value Reference Range Comments SODIUM (BEAKER) (test 133 meq/L 136-145 rqqj=165) POTASSIUM (BEAKER) (test 4.2 meq/L 3.5-5.1 wwjw=628) CHLORIDE (BEAKER) (test 98 meq/L 98-107 vacx=989) CO2 (BEAKER) (test 27 meq/L 22-29 gndl=161) BLOOD UREA NITROGEN 7 mg/dL 7-21 (BEAKER) (test ejof=472) CREATININE (BEAKER) (test 0.69 mg/dL 0.57-1.25 jans=486) GLUCOSE RANDOM (BEAKER) 91 mg/dL 70-105 (test yiez=867) CALCIUM (BEAKER) (test 8.5 mg/dL 8.4-10.2 vzum=831) EGFR (BEAKER) (test 138 mL/min/1.73 sq m ESTIMATED GFR IS NOT mypi=6509) ACCURATE CREATININE CLEARANCE IN PREDICTING GLOMERULAR FILTRATION RATE. ESTIMATED GFR IS NOT APPLICABLE FOR DIALYSIS PATIENTS. CBC W/PLT COUNT & AUTO [id number] 05:41:00 Test Item Value Reference Range Comments WHITE BLOOD CELL COUNT (BEAKER) (test uaaj=135) 6.3 K/ L 3.5-10.5 RED BLOOD CELL COUNT (BEAKER) (test rjoo=533) 3.58 M/ L 4.63-6.08 HEMOGLOBIN (BEAKER) (test txmt=356) 10.0 GM/DL 13.7-17.5 HEMATOCRIT (BEAKER) (test llhg=134) 31.2 % 40.1-51.0 MEAN CORPUSCULAR VOLUME (BEAKER) (test wbic=251) 87.2 fL 79.0-92.2 MEAN CORPUSCULAR HEMOGLOBIN (BEAKER) (test 27.9 pg 25.7-32.2 rltq=471) MEAN CORPUSCULAR HEMOGLOBIN CONC (BEAKER) (test 32.1 GM/DL 32.3-36.5 cdga=074) RED CELL DISTRIBUTION WIDTH (BEAKER) (test 12.7 % 11.6-14.4 wqnf=165) PLATELET COUNT (BEAKER) (test bspl=280) 366 K/CU MM 150-450 MEAN PLATELET VOLUME (BEAKER) (test styi=861) 9.3 fL 9.4-12.4 NUCLEATED RED BLOOD CELLS (BEAKER) (test 0 /100 WBC 0-0 rpbq=296) NEUTROPHILS RELATIVE PERCENT (BEAKER) (test 68 % jrar=010) LYMPHOCYTES RELATIVE PERCENT (BEAKER) (test 16 % dacs=678) MONOCYTES RELATIVE PERCENT (BEAKER) (test 9 % omzf=000) EOSINOPHILS RELATIVE PERCENT (BEAKER) (test 6 % skac=728) BASOPHILS RELATIVE PERCENT (BEAKER) (test 1 % rtxx=639) NEUTROPHILS ABSOLUTE COUNT (BEAKER) (test 4.29 K/ L 1.78-5.38 roig=985) LYMPHOCYTES ABSOLUTE COUNT (BEAKER) (test 1.01 K/ L 1.32-3.57 gbek=809) MONOCYTES ABSOLUTE COUNT (BEAKER) (test 0.57 K/ L 0.30-0.82 bblp=689) EOSINOPHILS ABSOLUTE COUNT (BEAKER) (test 0.36 K/ L 0.04-0.54 ucpq=008) BASOPHILS ABSOLUTE COUNT (BEAKER) (test 0.03 K/ L 0.01-0.08 nggg=032) IMMATURE GRANULOCYTES-RELATIVE PERCENT (BEAKER) 1 % 0-1 (test olim=2337) HIV-1 ANTIGEN WITH HIV-1/2 [id number] 11:52:00 Test Item Value Reference Range Comments HIV-1 ANTIGEN WITH HIV 1\T\2 ANTIBODY (2) Nonreactive Nonreactive (BEAKER) (test mkmx=0961) BASIC METABOLIC [id number] 05:07:00 Test Item Value Reference Range Comments SODIUM (BEAKER) (test 137 meq/L 136-145 wyar=408) POTASSIUM (BEAKER) (test 4.2 meq/L 3.5-5.1 svvu=441) CHLORIDE (BEAKER) (test 101 meq/L 98-107 eeyi=769) CO2 (BEAKER) (test 26 meq/L 22-29 gxrz=318) BLOOD UREA NITROGEN 9 mg/dL 7-21 (BEAKER) (test ydrh=166) CREATININE (BEAKER) (test 0.75 mg/dL 0.57-1.25 qwoh=490) GLUCOSE RANDOM (BEAKER) 101 mg/dL 70-105 (test xjml=456) CALCIUM (BEAKER) (test 8.8 mg/dL 8.4-10.2 xnsh=427) EGFR (BEAKER) (test 125 mL/min/1.73 sq m ESTIMATED GFR IS NOT abwx=6076) ACCURATE CREATININE CLEARANCE IN PREDICTING GLOMERULAR FILTRATION RATE. ESTIMATED GFR IS NOT APPLICABLE FOR DIALYSIS PATIENTS. PROTHROMBIN TIME/[id number] 04:54:00 Test Item Value Reference Range Comments PROTIME (BEAKER) (test vtxk=118) 15.7 seconds 11.7-14.7 INR (BEAKER) (test rnkk=785) 1.3 <=5.9 RECOMMENDED COUMADIN/WARFARIN INR THERAPY RANGESSTANDARD DOSE: 2.0 - 3.0 Includes: PROPHYLAXIS forvenous thrombosis, systemic embolization; TREATMENT for venous thrombosis and/or pulmonary embolus.HIGH RISK: Target INR is 2.5-3.5 for patients with mechanical heart valves.RESPIRATORY PANEL [id number] 09:00 :00 Test Item Value Reference Range Comments HUMAN METAPNEUMOVIRUS (BEAKER) (test Not detected Not detected, Inconclusive zzpl=9779) RHINOVIRUS (BEAKER) (test quwc=5622) Not detected Not detected, Inconclusive INFLUENZA A (BEAKER) (test Not detected Not detected, Inconclusive frzb=1555) INFLUENZA A SUBTYPE H1 (BEAKER) Not detected Not detected, Inconclusive (test dkbo=8964) INFLUENZA A SUBTYPE H3 (BEAKER) Not detected Not detected, Inconclusive (test wpwa=5403) INFLUENZA A SUBTYPE H1-2009 (BEAKER) Not detected Not detected, Inconclusive (test rhfa=2167) INFLUENZA B (BEAKER) (test Not detected Not detected, Inconclusive okcx=8052) RESPIRATORY SYNCYTIAL VIRUS (BEAKER) Not detected Not detected, Inconclusive (test jkyn=7887) PARAINFLUENZA VIRUS 1 (BEAKER) (test Not detected Not detected, Inconclusive unqt=8470) PARAINFLUENZA VIRUS 2 (BEAKER) (test Not detected Not detected, Inconclusive rfmh=0464) PARAINFLUENZA VIRUS 3 (BEAKER) (test Not detected Not detected, Inconclusive uoec=9697) PARAINFLUENZA VIRUS 4 (BEAKER) (test Not detected Not detected, Inconclusive upmi=0812) ADENOVIRUS (BEAKER) (test rtiq=0970) Not detected Not detected, Inconclusive CORONAVIRUS 229E (BEAKER) (test Not detected Not detected, Inconclusive lhsl=0486) CORONAVIRUS HKU1 (BEAKER) (test Not detected Not detected, Inconclusive edzt=3285) CORONAVIRUS NL63 (BEAKER) (test Not detected Not detected, Inconclusive wycy=4092) CORONAVIRUS OC43 (BEAKER) (test Not detected Not detected, Inconclusive lgjm=5008) BORDETELLA PERTUSSIS (BEAKER) (test Not detected Not detected, Inconclusive jitv=0812) CHLAMYDOPHILA PNEUMONIAE (BEAKER) Not detected Not detected, Inconclusive (test mpvr=0593) MYCOPLASMA PNEUMONIAE (BEAKER) (test Not detected Not detected, Inconclusive pfxz=6144) TSH/FREE T4 IF [id number] 06:34:00 Test Item Value Reference Range Comments THYROID STIMULATING HORMONE (BEAKER) (test 1.88 uIU/mL 0.35-4.94 lhae=516) BASIC METABOLIC [id number] 05:51:00 Test Item Value Reference Range Comments SODIUM (BEAKER) (test 134 meq/L 136-145 mium=195) POTASSIUM (BEAKER) (test 3.9 meq/L 3.5-5.1 stzi=772) CHLORIDE (BEAKER) (test 102 meq/L 98-107 wqkd=986) CO2 (BEAKER) (test 22 meq/L 22-29 jhdf=634) BLOOD UREA NITROGEN 12 mg/dL 7-21 (BEAKER) (test ucbm=565) CREATININE (BEAKER) (test 0.83 mg/dL 0.57-1.25 pgtd=751) GLUCOSE RANDOM (BEAKER) 85 mg/dL 70-105 (test bvub=870) CALCIUM (BEAKER) (test 8.2 mg/dL 8.4-10.2 gzvf=949) EGFR (BEAKER) (test 111 mL/min/1.73 sq m ESTIMATED GFR IS NOT jkcq=0008) ACCURATE CREATININE CLEARANCE IN PREDICTING GLOMERULAR FILTRATION RATE. ESTIMATED GFR IS NOT APPLICABLE FOR DIALYSIS PATIENTS. PROTHROMBIN TIME/[id number] 05:18:00 Test Item Value Reference Range Comments PROTIME (BEAKER) (test esie=721) 16.5 seconds 11.7-14.7 INR (BEAKER) (test dkyv=788) 1.3 <=5.9 RECOMMENDED COUMADIN/WARFARIN INR THERAPY RANGESSTANDARD DOSE: 2.0 - 3.0 Includes: PROPHYLAXIS forvenous thrombosis, systemic embolization; TREATMENT for venous thrombosis and/or pulmonary embolus.HIGH RISK: Target INR is 2.5-3.5 for patients with mechanical heart valves.URINALYSIS W/ REFLEX URINE [id number] 19:32:00 Test Item Value Reference Range Comments COLOR (BEAKER) (test nwbg=416) Yellow CLARITY (BEAKER) (test fzyx=536) Clear SPECIFIC GRAVITY UA (BEAKER) (test zpnn=151) 1.024 1.001-1.035 PH UA (BEAKER) (test kmjn=379) 6.0 5.0-8.0 PROTEIN UA (BEAKER) (test tthg=011) 30 mg/dL Negative GLUCOSE UA (BEAKER) (test vllh=319) Negative Negative KETONES UA (BEAKER) (test qxbf=727) Negative Negative BILIRUBIN UA (BEAKER) (test mfvc=368) Negative Negative BLOOD UA (BEAKER) (test ruok=133) Negative Negative NITRITE UA (BEAKER) (test sibg=411) Negative Negative LEUKOCYTE ESTERASE UA (BEAKER) (test czic=423) Negative Negative UROBILINOGEN UA (BEAKER) (test forh=811) 12.0 mg/dL 0.2-1.0 RBC UA (BEAKER) (test zlsk=466) 0 /HPF WBC UA (BEAKER) (test czhe=795) 5 /HPF BACTERIA (BEAKER) (test cvtw=482) Rare MUCUS (BEAKER) (test hgpu=9987) Moderate SOURCE(BEAKER) (test gutu=6294) BODY FLUID CELL COUNT WITH [id number] 19:31:00 Test Item Value Reference Range Comments APPEARANCE FLUID (BEAKER) (test pajz=554) Bloody Clear COLOR FLUID (BEAKER) (test kbxy=207) Red Colorless, Straw RBC FLUID (BEAKER) (test vszt=864) 45049 /cu mm <=1 ADJUSTED WBC FLUID (BEAKER) (test wube=7922) 41651 /cu mm <=5 LINING CELLS (BEAKER) (test ynca=1163) 0 /cu mm <=1 NEUTROPHILS FLUID (BEAKER) (test tbpm=9648) 87 % LYMPHS FLUID (BEAKER) (test ichf=203) 2 % MONO/MACROPHAGE FLUID (BEAKER) (test nlbl=898) 11 % EOSINOPHILS FLUID (BEAKER) (test tcsw=245) 0 % BASO FLUID (BEAKER) (test lzcs=341) 0 % CONTAINER BODY FLUID (BEAKER) (test fony=9631) EDTA Tube RAD, CHEST, 1 VIEW, NON [id number] 19:17:00Reason for exam:-> dyspneaShould this be performed [...] Raygoza Verified Date/Time: 08/30/2017 19:17:40 ReadingLocation: [facility] Radiology Reading Room Electronically signed by: DOMINICK RAYGOZA M.D. on 07:17 PMCOMPLEMENT COMPONENT [id number] 18:41:00 Test Item Value Reference Range Comments C4 COMPLEMENT (BEAKER) (test zuno=858) 22 mg/dL 15-57 COMPLEMENT COMPONENT [id number] 18:41:00 Test Item Value Reference Range Comments C3 COMPLEMENT (BEAKER) (test uvmz=252) 118 mg/dL 82-193 TROPONIN [id number] 07:06:00 Test Item Value Reference Range Comments TROPONIN I (BEAKER) (test fpqb=007) < ng/mL 0.00-0.03 Troponin I (TnI) levels [...] acute neurological disease, and persistent tachyarrhythmia.BASIC METABOLIC [id number] 06:57:00 Test Item Value Reference Range Comments SODIUM (BEAKER) (test 135 meq/L 136-145 cipk=813) POTASSIUM (BEAKER) (test 3.8 meq/L 3.5-5.1 gmzz=421) CHLORIDE (BEAKER) (test 102 meq/L 98-107 laez=047) CO2 (BEAKER) (test 24 meq/L 22-29 qpxr=755) BLOOD UREA NITROGEN 12 mg/dL 7-21 (BEAKER) (test xyur=181) CREATININE (BEAKER) (test 0.81 mg/dL 0.57-1.25 mkvr=772) GLUCOSE RANDOM (BEAKER) 90 mg/dL 70-105 (test wgrr=130) CALCIUM (BEAKER) (test 8.7 mg/dL 8.4-10.2 xoru=494) EGFR (BEAKER) (test 114 mL/min/1.73 sq m ESTIMATED GFR IS NOT wiqo=5861) ACCURATE CREATININE CLEARANCE IN PREDICTING GLOMERULAR FILTRATION RATE. ESTIMATED GFR IS NOT APPLICABLE FOR DIALYSIS PATIENTS. PROTHROMBIN TIME/[id number] 06:34:00 Test Item Value Reference Range Comments PROTIME (BEAKER) (test ugej=523) 16.2 seconds 11.7-14.7 INR (BEAKER) (test puor=446) 1.3 <=5.9 RECOMMENDED COUMADIN/WARFARIN INR THERAPY RANGESSTANDARD DOSE: 2.0 - 3.0 Includes: PROPHYLAXIS forvenous thrombosis, systemic embolization; TREATMENT for venous thrombosis and/or pulmonary embolus.HIGH RISK: Target INR is 2.5-3.5 for patients with mechanical heart valves.SEDIMENTATION [id number] 00:34:00 Test Item Value Reference Range Comments SEDIMENTATION RATE, ERYTHROCYTE (BEAKER) (test > mm/HR 0-15 tbkl=833) TROPONIN [id number] 23:59:00 Test Item Value Reference Range Comments TROPONIN I (BEAKER) (test pwon=444) < ng/mL 0.00-0.03 Troponin I (TnI) levels [...] acute neurological disease, and persistent tachyarrhythmia.BASIC METABOLIC [id number] 23:55:00 Test Item Value Reference Range Comments SODIUM (BEAKER) (test 134 meq/L 136-145 cmas=014) POTASSIUM (BEAKER) (test 3.5 meq/L 3.5-5.1 dltt=019) CHLORIDE (BEAKER) (test 99 meq/L 98-107 jrcn=265) CO2 (BEAKER) (test 25 meq/L 22-29 voxi=074) BLOOD UREA NITROGEN 11 mg/dL 7-21 (BEAKER) (test cdgv=314) CREATININE (BEAKER) (test 0.85 mg/dL 0.57-1.25 lfol=694) GLUCOSE RANDOM (BEAKER) 83 mg/dL 70-105 (test ipjg=388) CALCIUM (BEAKER) (test 8.4 mg/dL 8.4-10.2 qozr=080) EGFR (BEAKER) (test 108 mL/min/1.73 sq m ESTIMATED GFR IS NOT sayv=4078) ACCURATE CREATININE CLEARANCE IN PREDICTING GLOMERULAR FILTRATION RATE. ESTIMATED GFR IS NOT APPLICABLE FOR DIALYSIS PATIENTS. C-REACTIVE [id number] 23:53:00 Test Item Value Reference Range Comments C-REACTIVE PROTEIN (BEAKER) (test ddyx=868) 13.13 mg/dL 0.00-0.50 PT/[id number] 23:37:00 Test Item Value Reference Range Comments PROTIME (BEAKER) (test zkuy=321) 16.8 seconds 11.7-14.7 INR (BEAKER) (test ffib=143) 1.4 <=5.9 PARTIAL THROMBOPLASTIN TIME (BEAKER) (test 38.7 seconds 22.5-36.0 leme=994) RECOMMENDED COUMADIN/WARFARIN INR THERAPY RANGESSTANDARD DOSE: 2.0 - 3.0 Includes: PROPHYLAXIS forvenous thrombosis, systemic embolization; TREATMENT for venous thrombosis and/or pulmonary embolus.HIGH RISK: Target INR is 2.5-3.5 for patients with mechanical heart valves.CBC W/PLT COUNT & AUTO [id number] 23:34:00 Test Item Value Reference Range Comments WHITE BLOOD CELL COUNT (BEAKER) (test rkou=547) 11.5 K/ L 3.5-10.5 RED BLOOD CELL COUNT (BEAKER) (test ofvm=534) 3.60 M/ L 4.63-6.08 HEMOGLOBIN (BEAKER) (test jrcs=638) 10.4 GM/DL 13.7-17.5 HEMATOCRIT (BEAKER) (test jnvh=697) 32.3 % 40.1-51.0 MEAN CORPUSCULAR VOLUME (BEAKER) (test ntlc=174) 89.7 fL 79.0-92.2 MEAN CORPUSCULAR HEMOGLOBIN (BEAKER) (test 28.9 pg 25.7-32.2 lveq=196) MEAN CORPUSCULAR HEMOGLOBIN CONC (BEAKER) (test 32.2 GM/DL 32.3-36.5 eqoz=661) RED CELL DISTRIBUTION WIDTH (BEAKER) (test 12.5 % 11.6-14.4 uhzw=647) PLATELET COUNT (BEAKER) (test foje=961) 287 K/CU MM 150-450 MEAN PLATELET VOLUME (BEAKER) (test abmy=712) 9.3 fL 9.4-12.4 NUCLEATED RED BLOOD CELLS (BEAKER) (test 0 /100 WBC 0-0 trir=445) NEUTROPHILS RELATIVE PERCENT (BEAKER) (test 75 % jrsx=565) LYMPHOCYTES RELATIVE PERCENT (BEAKER) (test 12 % mmbc=168) MONOCYTES RELATIVE PERCENT (BEAKER) (test 12 % vkuz=638) EOSINOPHILS RELATIVE PERCENT (BEAKER) (test 1 % ookn=869) BASOPHILS RELATIVE PERCENT (BEAKER) (test 0 % wamh=278) NEUTROPHILS ABSOLUTE COUNT (BEAKER) (test 8.58 K/ L 1.78-5.38 ushy=682) LYMPHOCYTES ABSOLUTE COUNT (BEAKER) (test 1.39 K/ L 1.32-3.57 xsil=624) MONOCYTES ABSOLUTE COUNT (BEAKER) (test 1.39 K/ L 0.30-0.82 zwth=625) EOSINOPHILS ABSOLUTE COUNT (BEAKER) (test 0.07 K/ L 0.04-0.54 ejsu=322) BASOPHILS ABSOLUTE COUNT (BEAKER) (test 0.02 K/ L 0.01-0.08 rdro=468) IMMATURE GRANULOCYTES-RELATIVE PERCENT (BEAKER) 1 % 0-1 (test nrcl=6308) HIV [id number] 10:53:00 Test Item Value Reference Range Comments HIV 1/2 Antibody (test Non-Reactive Non-Reactive HIV1/2 Antibody screen result code=HIV1/2AB) indicates the absence of HIV1 and XIV1wvoqsawxz.However, A Non-Reactive screen result does not rule [...] (test code=HESR) 45 mm/Hr 0-9 Hepatitis Acute [id number] 07:39:00 Test Item Value Reference Range Comments [...] IgM (test Nonreactive Non-Reactive code=HBCABM) C-Reactive Protein, [id number] 07:30:00 Test Item Value Reference Range Comments CRP (test code=CRP) 66.1 mg/L 0.0-5.0 RPR, [id number] 09:33:00 Test Item Value Reference Range Comments RPR (test code=RPR) Non-Reactive Non-Reactive Thyroid Stimulating Hormone (TSH)2017-08-18 07:47:00 Test Item Value Reference Range Comments TSH (test code=TSH) 1.29 mIU/mL 0.270-4.200 Lipid [id number] 07:39:00 Test Item Value Reference Range Comments Cholesterol (test 138 mg/dL 0-200 code=CHOL) Triglycerides (test 169 mg/dL 9-200 code=TRIG) HDL (test code=HDL) 40 mg/dL 40-60 Chol/HDL (test 3.5 Ratio 0.0-5.0 code=CHOLPHDL) LDL, Calculated (test 64 0-130 (NOTE)RISK OF HEART code=LDLC) DISEASEPublished by [place] Heart AssociationAnalyte Optimal Boderline Increased RiskCHOL <200 200-239 >240TRIG <150 150-199 >200HDL Male: >60 <40HDL Female: >60 <50LDL <100 130-159 >160LDL NEAR OPTIMAL IS 100-129 VLDL (test code=VLDL) 34 mg/dL 5-40 LDL/HDL (test code=LDLPHDL) 2 [id number] 18:55:00 Test Item Value Reference Range Comments [...] code=PROPOX) THC (test code=THC) Negative Negative Urinalysis [id number] 18:46:00 Test Item Value Reference Range Comments Color (test code=COLOR) Yellow Yellow,Straw,Pl yellow Clarity (test code=CLAR) Clear Clear Specific [place] (test code=SPGR) 1.024 1.001-1.035 pH (test code=PH) [...] Bacteria (test code=BACT) None /HPF Comprehensive Metabolic [id number] 06:44:00 Test Item Value Reference Range Comments [...] race is not provided, and the patient isAfrican-[place]ian, multiply by 1.212. If sex is not [...] the National Kidney Foundation,http://nkdep.nih .gov CBC with [id number] 06:30:00 Test Item Value Reference Range Comments [...] Lymph Abs (test code=ALYMPH) 1.9 K/cumm 0.5-4.6 Loíza Abs (test code=AMONO) 0.8 K/cumm 0.0-1.2 Eos Abs (test code=AEOS) 0.25 K/cumm 0.00-0.74 Baso Abs (test code=ABASO) 0.1 K/cumm 0.00-0.21 RPR, [id number] 15:32:00 Test Item Value Reference Range Comments RPR (test code=RPR) Non-Reactive Non-Reactive Lipid [id number] 09:41:00 Test Item Value Reference Range Comments Cholesterol (test 155 mg/dL 0-200 code=CHOL) Triglycerides (test 137 mg/dL 9-200 code=TRIG) HDL (test code=HDL) 40 mg/dL 40-60 Chol/HDL (test 3.9 Ratio 0.0-5.0 code=CHOLPHDL) LDL, Calculated (test 88 0-130 (NOTE)RISK OF HEART code=LDLC) DISEASEPublished by [place] Heart AssociationAnalyte Optimal Boderline Increased RiskCHOL <200 200-239 >240TRIG <150 150-199 >200HDL Male: >60 <40HDL Female: >60 <50LDL <100 130-159 >160LDL NEAR OPTIMAL IS 100-129 VLDL (test code=VLDL) 27 mg/dL 5-40 LDL/HDL (test code=LDLPHDL) 2 Thyroid Stimulating Hormone (TSH)2017-04-16 09:25:00 Test Item Value Reference Range Comments TSH (test code=TSH) 2.86 mIU/mL 0.270-4.200 Alcohol/Ethanol, [id number] 08:01:00 Test Item Value Reference Range Comments Alcohol, Ethyl (test 0.14 g/dL 0.00-0.01 Intoxicated 0.080 g/dL or code=ETOH) more [id number] 04:28:00 Test Item Value Reference Range Comments [...] 0.32 g/dL 0.00-0.01 danny rblv code=ETOHU) Urinalysis [id number] 04:17:00 Test Item Value Reference Range Comments Color (test code=COLOR) Yellow Yellow,Straw,Pl yellow Clarity (test code=CLAR) Clear Clear Specific [place] (test code=SPGR) 1.013 1.001-1.035 pH (test code=PH) [...] Bacteria (test code=BACT) Few /HPF Comprehensive Metabolic [id number] 03:15:00 Test Item Value Reference Range Comments [...] race is not provided, and the patient isAfrican-[place]ian, multiply by 1.212. If sex is not [...] the National Kidney Foundation,http://nkdep.nih .gov CBC with [id number] 03:12:00 Test Item Value Reference Range Comments [...] Lymph Abs (test code=ALYMPH) 1.6 K/cumm 0.5-4.6 Loíza Abs (test code=AMONO) 0.4 K/cumm 0.0-1.2 Eos Abs (test code=AEOS) 0.42 K/cumm 0.00-0.74 Baso Abs (test code=ABASO) 0.1 K/cumm 0.00-0.21 C difficile Toxins [id number] 09:05:00Specimen: StoolCollected: 01/10/2017 07 :00 Status: Final Last Updated: 01/11/2017 09:05 C DIFF TOXIN (Final) ( Final) 01/11/17 No Clostridium difficile toxin presentGlycosylated [id number] 08:05:00 Test Item Value Reference Range Comments HBA1c (test code=HBA1C) 4.8 % 4.8-5.9 RPR, [id number] 18:31:00 Test Item Value Reference Range Comments RPR (test code=RPR) Non-Reactive Non-Reactive Thyroid Stimulating Hormone (TSH)2017-01-01 10:37:00 Test Item Value Reference Range Comments TSH (test code=TSH) 1.85 mIU/mL 0.270-4.200 Lipid [id number] 10:34:00 Test Item Value Reference Range Comments Cholesterol (test 156 mg/dL 0-200 code=CHOL) Triglycerides (test 159 mg/dL 9-200 code=TRIG) HDL (test code=HDL) 47 mg/dL 40-60 Chol/HDL (test 3.3 Ratio 0.0-5.0 code=CHOLPHDL) LDL, Calculated (test 77 0-130 (NOTE)RISK OF HEART code=LDLC) DISEASEPublished by [place] Heart AssociationAnalyte Optimal Boderline Increased RiskCHOL <200 200-239 >240TRIG <150 150-199 >200HDL Male: >60 <40HDL Female: >60 <50LDL <100 130-159 >160LDL NEAR OPTIMAL IS 100-129 VLDL (test code=VLDL) 32 mg/dL 5-40 LDL/HDL (test code=LDLPHDL) 2 Alcohol/Ethanol, [id number] 09:59:00 Test Item Value Reference Range Comments Alcohol, Ethyl (test 0.09 g/dL 0.00-0.01 Intoxicated 0.080 g/dL or code=ETOH) more CBC with [id number] 02:40:00 Test Item Value Reference Range Comments [...] Lymph Abs (test code=ALYMPH) 1.6 K/cumm 0.5-4.6 [place] Abs (test code=AMONO) 0.3 K/cumm 0.0-1.2 Eos Abs (test code=AEOS) 0.33 K/cumm 0.00-0.74 Baso Abs (test code=ABASO) 0.1 K/cumm 0.00-0.21 [id number] 02:39:00 Test Item Value Reference Range Comments [...] VALUESVERIFIED code=ETOHU) BY REPEAT TESTINGHinaEfraín @238am 01/01/2017 [facility] [id number] 02:36:00 Test Item Value Reference Range Comments [...] race is not provided, and the patient isAfrican-[place], multiply by 1.212. If sex is not provided, and thepatient is female, multiply by 0.742. Results for patients <18 years ofage have not been validated by the MDRD study and should be interpretedwith caution.eGFR Result Interpretation:eGFR > or=60 is in the Normal RangeeGFR < 60 may mean kidney diseaseeGFR < 15 may mean kidney failureRanges recommended by the National Kidney Foundation,http://nkdep.nih .gov Urinalysis [id number] 02:17:00 Test Item Value Reference Range Comments Color (test code=COLOR) Yellow Yellow,Straw,Pl yellow Clarity (test code=CLAR) Clear Clear Specific [place] (test code=SPGR) 1.010 1.001-1.035 pH (test code=PH) [...]
--- NOTE | 2017-09-17 15:39 | ER ---
Nurse's Notes [facility] Name: Lobito Pack Age: 26 yrs Sex: Male : 1990 Arrival Date: 09/17/2017 Time: 15:06 Bed 11 Private MD: Diagnosis: Sprain of ligaments of cervical spine Presentation: 09/17 15:09 Presenting complaint: Patient states: i was at work last night and i banged my head on tw2 metal supports multiple times, i was wearing a hard hat, it was hurting last night after work, but this morning its really sore and i can barely move it. Transition of care: patient was not received from another setting of care. Onset of symptoms was September 17, 2017. Risk Assessment: Do you want to hurt yourself or someone else? Patient reports no desire to harm self or others. Initial Sepsis Screen: Does the patient meet any 2 criteria? No. Patient's initial sepsis screen is negative. Does the patient have a suspected source of infection? No. Patient's initial sepsis screen is negative. Care prior to arrival: None. 15:09 Method Of Arrival: Ambulatory tw2 15:09 Acuity: LEON 4 tw2 Triage Assessment: 15:29 General: Appears in no apparent distress. well developed, well nourished, Behavior is rk2 calm, cooperative. Pain: Complains of pain in Neck pain, left/right lateral pain on palpation. Neuro: Level of Consciousness is alert, obeys commands, Oriented to person, place, time, situation. Respiratory: Airway is patent Respiratory effort is even, unlabored, Respiratory pattern is regular, symmetrical. Derm: Skin is pink, warm \\T\\ dry. Historical: - Allergies: 15:11 Haldol; tw2 - Home Meds: 15:11 gabapentin 600 mg Oral tab 1 tab four times a day [Active]; Remeron 15 mg Oral tab 1 tw2 tab once daily [Active]; Prednisone Oral [Active]; - PMHx: 15:11 Alcoholism; Depression; Dystonic reaction to haldol; Lupus; Mixed connective tissue tw2 disease; pericarditis; Rheumatoid Arthritis; suicidal ideation; - PSHx: 15:11 Hernia repair; tw2 - Immunization history:: Adult Immunizations up to date. - Social history:: Smoking status: Patient uses tobacco products, smokes one-half pack cigarettes per day, Patient uses alcohol, "once a week a 6 pack". - Ebola Screening: : Patient negative for fever greater than or equal to 101.5 degrees Fahrenheit, and additional compatible Ebola Virus Disease symptoms. Screenin:29 Abuse screen: Denies threats or abuse. Nutritional screening: No deficits noted. rk2 Tuberculosis screening: No symptoms or risk factors identified. Fall Risk None identified. Vital Signs: 15:11 BP 116 / 91; Pulse 104; Resp 17; Temp 98.3(O); Pulse Ox 98% on R/A; Weight 90.72 kg tw2 (R); Height 5 ft. 10 in. (177.80 cm); Pain 7/10; 15:11 Body Mass Index 28.70 (90.72 kg, 177.80 cm) tw2 ED Course: 15:06 Patient arrived in ED. rg4 15:10 Triage completed. tw2 15:10 Arm band placed on. tw2 15:16 Serina Frankel RN is Primary Nurse. rk2 15:20 Lamin Schroeder MD is Attending Physician. 15:29 Patient has correct armband on for positive identification. Call light in reach. rk2 15:47 No provider procedures requiring assistance completed. Patient did not have IV access rk2 during this emergency room visit. Administered Medications: No medications were administered Outcome: 15:39 Discharge ordered by . 15:47 Discharged to home ambulatory. rk2 15:47 Condition: good 15:47 Discharge instructions given to patient, Prescriptions given X 1. 15:47 Patient left the ED. rk2 Signatures: Sally Dumont RN RN tw2 Teodora Wright 4 Lamin Schroeder MD MD Serina Frankel RN RN rk2
--- NOTE | 2017-09-17 15:39 | EDPHYS ---
Physician Documentation [facility] Name: Lobito Pack Age: 26 yrs Sex: Male : 1990 Arrival Date: 09/17/2017 Time: 15:06 Bed 11 Private MD: ED Physician Lamin Schroeder HPI: 09/17 15:34 This 26 yrs old Male presents to ER via Ambulatory with complaints of Neck gs Pain, <24hrs Old. 15:34 The patient or guardian complains of pain, that is acute. The symptoms are located on gs the back of neck. Onset: The symptoms/episode began/occurred yesterday. Context: The problem was sustained at work, The neck injury/problem resulted from quickly turning their neck, irregular bending to back torso. Associated signs and symptoms: Pertinent negatives: bladder incontinence, bowel incontinence, numbness, tingling, weakness. The pain does not radiate. Modifying factors: the symptoms are aggravated by movement. Severity of symptoms: At their worst the symptoms were moderate, in the emergency department the symptoms are unchanged. Historical: - Allergies: 15:11 Haldol; tw2 - Home Meds: 15:11 gabapentin 600 mg Oral tab 1 tab four times a day [Active]; Remeron 15 mg Oral tab 1 tw2 tab once daily [Active]; Prednisone Oral [Active]; - PMHx: 15:11 Alcoholism; Depression; Dystonic reaction to haldol; Lupus; Mixed connective tissue tw2 disease; pericarditis; Rheumatoid Arthritis; suicidal ideation; - PSHx: 15:11 Hernia repair; tw2 - Immunization history:: Adult Immunizations up to date. - Social history:: Smoking status: Patient uses tobacco products, smokes one-half pack cigarettes per day, Patient uses alcohol, "once a week a 6 pack". - Ebola Screening: : Patient negative for fever greater than or equal to 101.5 degrees Fahrenheit, and additional compatible Ebola Virus Disease symptoms. ROS: 15:34 All other systems are negative. gs Exam: 15:34 Head/Face: Normocephalic, atraumatic. Eyes: Pupils equal round and reactive to light, gs extra-ocular motions intact. Lids and lashes normal. Conjunctiva and sclera are non-icteric and not injected. Cornea within normal limits. Periorbital areas with no swelling, redness, or edema. ENT: Nares patent. No nasal discharge, no septal abnormalities noted. Tympanic membranes are normal and external auditory canals are clear. Oropharynx with no redness, swelling, or masses, exudates, or evidence of obstruction, uvula midline. Mucous membranes moist. Chest/axilla: Normal chest wall appearance and motion. Nontender with no deformity. No lesions are appreciated. Cardiovascular: Regular rate and rhythm with a normal S1 and S2. No gallops, murmurs, or rubs. Normal PMI, no JVD. No pulse deficits. Respiratory: Lungs have equal breath sounds bilaterally, clear to auscultation and percussion. No rales, rhonchi or wheezes noted. No increased work of breathing, no retractions or nasal flaring. Abdomen/GI: Soft, non-tender, with normal bowel sounds. No distension or tympany. No guarding or rebound. No evidence of tenderness throughout. Back: No spinal tenderness. No costovertebral tenderness. Full range of motion. Skin: Warm, dry with normal turgor. Normal color with no rashes, no lesions, and no evidence of cellulitis. MS/ Extremity: Pulses equal, no cyanosis. Neurovascular intact. Full, normal range of motion. Neuro: Awake and alert, GCS 15, oriented to person, place, time, and situation. Cranial nerves II-XII grossly intact. Motor strength 5/5 in all extremities. Sensory grossly intact. Cerebellar exam normal. Normal gait. 15:34 Constitutional: The patient appears in no acute distress, alert, awake. 15:34 Neck: External neck: tenderness, that is mild, of the left trapezius and right trapezius, C-spine: vertebral tenderness, is not appreciated. Vital Signs: 15:11 BP 116 / 91; Pulse 104; Resp 17; Temp 98.3(O); Pulse Ox 98% on R/A; Weight 90.72 kg tw2 (R); Height 5 ft. 10 in. (177.80 cm); Pain 7/10; 15:11 Body Mass Index 28.70 (90.72 kg, 177.80 cm) tw2 MDM: 15:31 Patient medically screened. gs 15:34 Differential diagnosis: cervical strain. Data reviewed: vital signs, nurses notes, and gs as a result, I will discharge patient. Administered Medications: No medications were administered Disposition: 09/17/17 15:39 Discharged to Home. Impression: Sprain of ligaments of cervical spine. - Condition is Stable. - Discharge Instructions: Cervical Sprain. - Prescriptions for Naprosyn 500 mg Oral Tablet - take 1 tablet by ORAL route 2 times per day take with food; 14 tablet. - Medication Reconciliation Form, Thank You Letter, Antibiotic Education, Prescription Opioid Use, Work release form form. - Follow up: Private Physician; When: 2 - 3 days; Reason: Re-evaluation by your physician. Signatures: Sally Dumont RN RN tw2 Lamin Schroeder MD MD gs Serina Frankel RN RN rk2 Corrections: (The following items were deleted from the chart) 15:47 15:39 09/17/2017 15:39 Discharged to Home. Impression: Sprain of ligaments of cervical rk2 spine. Condition is Stable. Forms are Medication Reconciliation Form, Thank You Letter, Antibiotic Education, Prescription Opioid Use. Follow up: Private Physician; When: 2 - 3 days; Reason: Re-evaluation by your physician.
== END 2017-09-17 15:47 | disposition home or self-care (01) ==
LOC: ER 15:03
DX: S13.4XXA Sprain of ligaments of cervical spine, initial encounter (principal); X58.XXXA Exposure to other specified factors, initial encounter; Y93.89 Activity, other specified; Y92.89 Other specified places as the place of occurrence of the external cause; Z88.5 Allergy status to narcotic agent; F10.20 Alcohol dependence, uncomplicated; F32.9 Major depressive disorder, single episode, unspecified; F17.210 Nicotine dependence, cigarettes, uncomplicated
CPT/HCPCS: 99282

== ENCOUNTER 2017-09-22 00:52 | Emergency (ER) | payer OTHER ==
--- OUTSIDE RECORDS SUMMARY | 2017-09-22 00:53 | XMS REPORT | Clinical Summary ---
:1990 Author Organization [facility] Address [address] [place] [address] Care Team Providers Name Role Phone Asked, [...] Bradshaw MD 02/11/2017 Ivan Kaplan MD after 09/21/2016 Social History Tobacco Use Types Packs/Day Years [...] Left (02/07/2017 7:15 PM) Specimen Performing Laboratory [employer] [place] [address] Narrative EXAMINATION:XR ELBOW 2 VW LEFT CLINICAL HISTORY:ARTHRITISELBOW COMPARISON:None. IMPRESSION: There is a small elbow joint effusion. There are no bony changes to suggest degenerative arthritis or obvious inflammatory arthritis otherwise. Bone mineralization is normal. There is no focal bone lesion. [facility]-[id number] Procedure Note Hm Interface, Radiology Results Incoming - 02/07/2017 9:35 PM CDT EXAMINATION: XR ELBOW 2 VW LEFT CLINICAL HISTORY: ARTHRITIS ELBOW COMPARISON: None. IMPRESSION: There is a small elbow joint effusion. There are no bony changes to suggest degenerative arthritis or obvious inflammatory arthritis otherwise. Bone mineralization is normal. There is no focal bone lesion. [facility]-[id number] CT Head Wo Contrast (02/04/2017 10:53 AM) Specimen Performing Laboratory [facility] [employer] [address] [place] [address] Narrative EXAMINATION: CT HEAD WO CONTRAST CLINICAL [...] for additional pertinent findings, details and comments. [id number] Procedure Note Interface, Radiology Results Incoming - [...] for additional pertinent findings, details and comments. [id number] Urine drugs of abuse screen (02/04/2017 8:00 AM) Component Value Ref Range Amphetamine screen, urine Positive (A) Barbiturate screen, urine Negative Benzodiazepine screen, urine Negative Cannabinoid screen, urine Negative Cocaine screen, urine Negative Methadone metabolite (EDDP), urine Negative Opiates screen, urine Negative Oxycodone screen, urine Negative Phencyclidine screen, urine Negative Tricyclic screen, urine Negative Comment: Drug screen minimum concentration of detectability Crukglrkwygr0050 ng/mL Barbiturates 200 ng/mL Frxxsnbefgoubea496 ng/mL Vegktlj033 ng/mL Yoougdrjd550 ng/mL Hdmeqww435 ng/mL Dmxpgqczf689 ng/mL Phencyclidine 25 ng/mL Izkmbdsjlgqi46 ng/mL Tosqtbjzyv9820 ng/mL Negative test results indicates presumptive evidence of lack of clinically significant drug concentration in this urine specimen. Positive test results are presumptive evidence of clinically significant drug concentration in this urine specimen. Testing performed for medical purposes only. Specimen Performing Laboratory Urine [facility] DEPARTMENT OF PATHOLOGY AND GENOMIC MEDICINE [address] [place] [address] Syphilis treponemal IgG (02/04/2017 6:00 AM) Component Value Ref Range Syphilis treponemal IgG Non-reactiveComment: Non-reactive: No Non-reactive serological evidence of Syphilis infection Specimen Performing Laboratory Serum [facility] DEPARTMENT OF PATHOLOGY AND [facility] [address] [place] [address] Thyroid stimulating hormone (02/04/2017 6:00 AM) Component Value Ref Range TSH 2.25 0.27 - 4.20 uIU/mL Specimen Performing Laboratory Plasma specimen [facility]PART[facility] OF PATHOLOGY AND GENOMIC [facility]ICINE [address] [place] [address] Hemoglobin A1c (02/04/2017 6:00 AM) Component Value [...] type 1 diabetes. Specimen Performing Laboratory Blood [facility] OF PATHOLOGY AND [facility] [address] [place] [address] Hepatic function panel (02/04/2017 6:00 AM) Component Value Ref Range Albumin 3.2 (L) 3.5 - 5.0 g/dL Total bilirubin 0.4 0.0 - 1.2 mg/dL Bilirubin direct <0.2 0.0 - 0.3 mg/dL Alkaline phosphatase 91 40 - 129 U/L Protein 7.5 6.3 - 8.3 g/dL Comment: [place] 4.6-7.0 g/dL 1 week 4.4-7.6 g/dL 7 months-1year5.1-7.3 g/dL 1-2 years5.6-7.5 g/dL >3 years6.0-8.0 g/dL 18-150 6.3-8.3 g/dL ALT 47 5 - 50 U/L AST 36 10 - 50 U/L Specimen Performing Laboratory Plasma specimen [facility]PART[facility] OF PATHOLOGY AND GENOMIC MEDICINE [address] [place] [address] Lipid panel (02/04/2017 6:00 AM) Component Value Ref Range Cholesterol 113 <200 mg/dL Triglycerides 62 <150 mg/dL HDL cholesterol 38 (L) >40 mg/dL LDL cholesterol 69Comment: Result obtained by direct LDL <100 mg/dL measurement Lipid panel interpretation SeeBelow Comment: Total Cholesterol (mg/dL) <200 Desirable 201-228Bqpioawbxp-apen >=240High Triglycerides (mg/dL) <150 Normal 333-930Sittkycjut-utgw 200-499High >=500Very high HDL Cholesterol (mg/dL) <40Low (male) <40Low (female) LDL Cholesterol (mg/dL) <100 Optimal 100-129Near or above optimal 295-779Fusutkcxyh-kyhv 160-189High >=190Very high Risk Catergories that modify [...] (>=200 mg/dL) Specimen Performing Laboratory Plasma specimen [facility] DEPARTMENT OF PATHOLOGY AND GENOMIC MEDICINE [address] [place] [address] ECG 12 lead (02/03/2017 7:34 PM) Component Value Ref Range Ventricular rate 79 Atrial rate 79 RI interval 146 QRSD interval 98 QT interval 388 QTC interval 444 P axis 1 59 QRS axis 1 79 T wave axis 70 EKG impression Normal sinus rhythm-Normal ECG-No previous ECGs available- Specimen Performing Laboratory [facility] [address] [place] [address] after 09/21/2016
--- OUTSIDE RECORDS SUMMARY | 2017-09-22 00:54 | XMS REPORT | Clinical Summary ---
:[address] [facility] Address [address] [place] [address] Phone Care Team Providers Name Role Phone [...] MD Benjamin unspecified depression type;Tobacco abuse after 09/21/2016 Family History Medical History Relation Name Comments [...] 08/30/2017 11:23 AM CDT Pericardial effusion after 09/21/2016 Results ECHOCARDIOGRAM REPORT - SCAN (09/19/2017 6:50 PM)Only the most recent of4 resultswithin the time period is included.RHYTHM STRIP - SCAN (09/05/2017 12:40 PM)CARDIAC CATH REPORT - SCAN (09/03/2017 2:13 PM)T Spot TB (09/02/2017 5:25 AM) Component Value Ref Range T-Spot TB Negative Neg Ctrl Spot Count 0 Panel A Spot 0 Panel B Spot [address] 0 Scan Result 0 Specimen Performing Laboratory Blood [facility] [address] [facility], [address] [place] [address] CBC with platelet count + automated diff [...] - 1 % Specimen Performing Laboratory Blood [facility] [address] [place] [address] [place] [address] CBC with platelet count + automated diff (09/02/2017 5:25 AM)Only the most recent of2 resultswithin the time period is included. Specimen Performing Laboratory Blood [facility] The following orders were created for panel order CBC with platelet count + automated diff. Procedure Abnormality Status --------- ------ CBC with platelet count ...[[id number]]AbnormalFinal result Please view results for these tests [...] DIALYSIS PATIENTS. Specimen Performing Laboratory Blood [facility] [address] [address] 2D Echo W/Doppler(CW/PW/Color) (09/01/2017 4:03 PM)Only the most recent of4 resultswithin the time period is included. 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 Stella Interpreting Fazal Bailey Physician Procedure Type [...] Antibody Nonreactive Nonreactive Specimen Performing Laboratory Blood [address] [address] Sjogren's antibodies (09/01/2017 4:33 AM) Component Value Ref Range Anti-Ss-A <1.0 NEG <1.0 NEGATIVE AI Anti-Ss-B <1.0 NEG <1.0 NEGATIVE AI Specimen Performing Laboratory Blood [facility] [address] [address] Narrative Performing Lab [facility] [address] [address] Emil Darnell MD, PhD, PHANI Anti-DNA Titer (09/01/2017 4:33 AM) Component Value Ref Range Anti-DNA Titer >=1:320 Specimen Performing Laboratory Blood [address] [address] Actin (Smooth Muscle) Antibody, IgG (09/01/2017 4:33 [...] Specimen Performing Laboratory Blood [facility] [address] [place] [address] Narrative Performing Lab [facility] [address] [place] [address] Emil Darnell MD, PhD, PHANI JUAN Titer & Pattern (09/01/2017 4:33 AM) Component Value Ref Range JUAN Titer >=1:2560 JUAN Pattern Speckled Specimen Performing Laboratory [address] [address] Double-Stranded DNA (dsDNA) Antibody (09/01/2017 4:33 AM) Component Value Ref Range ds DNA Ab Positive Specimen Performing Laboratory [address] [address] Prothrombin time/INR (09/01/2017 4:33 AM)Only the most recent of3 resultswithin the time period is included. Component Value Ref Range Protime 15.7 (H) 11.7 - 14.7 seconds INR 1.3 <=5.9 Specimen Performing Laboratory [address] [address] Narrative RECOMMENDED COUMADIN/WARFARIN INR THERAPY RANGES STANDARD DOSE: 2.0 - 3.0 Includes: PROPHYLAXIS for venous thrombosis, systemic embolization; TREATMENT for venous thrombosis and/or pulmonary embolus. HIGH RISK: Target INR is 2.5-3.5 for patients with mechanical heart valves. Anti-Nuclear Antibody (JUAN) (09/01/2017 4:33 AM) Component Value Ref Range JUAN Positive (A) Negative Specimen Performing Laboratory [address] [address] TRANSFUSION SERVICE REPORT - SCAN (08/31/2017 5:42 PM)Only the most recent of2 resultswithin the time period is included.Cytology (08/31/2017 12:50 PM) Component Value Ref Range Case Report Medical Cytology Report Case: [id number] Authorizing Provider:Hernan Stuart MDCollected: 08/31/2017 1250 Ordering Location: [place] [address] CCUReceived: 09/02/2017 0842 Pathologist: Jarek Christopher MD Specimen:Pericardial DIAGNOSIS PERICARDIAL FLUID (CYTOSPINS): - NO MALIGNANT CELLS IDENTIFIED Signing Pathologist Direct Phone Line: [phone] CPT Code(s) 94883 CLINICAL DATA Pericardial effusion SPECIMEN SOURCE PERICARDIAL FLUID GROSS DESCRIPTION 10 mls bloody; 4 cytospins Collected: [id number] Received: [id number] STATEMENT OF ADEQUACY Satisfactory Technical component was performed at [facility], Department of Pathology, [address] [place] [address], Professional component was performed [facility], at Department of Pathology, [address] [place] [address], Specimen Performing Laboratory Body Fluid - Pericardial [address] [address] TSH/Free T4 If Indicated (08/31/2017 4:53 AM) Component Value Ref Range TSH 1.88 0.35 - 4.94 uIU/mL Specimen Performing Laboratory Blood - Arm, Right [address] [address] Urinalysis w/Microscopic + Reflex to Culture (08/30/2017 6:06 PM) Component Value Ref Range Color, UA Yellow Clarity, UA Clear Specific [place], UA 1.024 1.001 - 1.035 pH, UA [...] Specimen Performing Laboratory Urine - Urine, Voided [address] [address] Histoplasma antigen, urine (08/30/2017 6:06 PM) Component [...] analytical performance characteristics have been determined by [facility]. It has not been cleared or approved by the U.S. Food and Drug Administration.The FDA has determined that such clearance or approval is not necessary. This assay has been validated pursuant to the CLIA regulations andis used for clinical purposes. Specimen Performing Laboratory Urine - Urine, Voided [facility] [address] [address] Narrative Performing Lab *QDID [facility] [address] [place] [id number] Tomasz Nunez MD XR chest 1 view [...] MD Report Verified Date/Time:08/30/2017 19:17:40 Reading Location: [facility] Radiology Reading Room Procedure Note Interface, External [...] Report Verified Date/Time: 08/30/2017 19:17:40 Reading Location: [facility] Radiology Reading Room Blood culture (08/30/2017 5:38 PM)Only the most recent of2 resultswithin the time period is included. Component Value Ref Range Result No growth in 5 days Specimen Performing Laboratory Blood - Arm, Right [address] [address] Respiratory Panel [facility] (08/30/2017 5:37 PM) Component [...] Inconclusive Specimen Performing Laboratory Nasopharyngeal - Pericardial [address] [address] Complement Component C3 (08/30/2017 5:37 PM) Component Value Ref Range C3 Complement 118 82 - 193 mg/dL Specimen Performing Laboratory Blood - Arm, Right [address] [address] Complement Component C4 (08/30/2017 5:37 PM) Component Value Ref Range C4 Complement 22 15 - 57 mg/dL Specimen Performing Laboratory Blood - Arm, Right [address] [address] Body fluid culture + gram stain (08/30/2017 11:00 AM) Component Value Ref Range Result No growth Gram Stain Result 2+ WBCs Gram Stain Result No organisms seen Specimen Performing Laboratory Body Fluid - Pericardium [address] [address] Body fluid cell count with differential (08/30/2017 11:00 AM) Component Value Ref Range Appearance Bloody (A) Clear Color Red (A) Colorless, Straw RBCs [address] (H) <=1 /cu mm Adjusted WBC Count 29424 (H) <=5 /cu mm Lining Cells 0 <=1 /cu mm % Segs 87 % % Lymphs 2 % % Monos 11 % % Eos 0 % % Baso 0 % Container Body Fluid EDTA Tube Specimen Performing Laboratory Other - EFREN Drain [address] [address] Troponin I (08/30/2017 6:05 AM)Only the most recent of2 resultswithin the time period is included. Component Value Ref Range Troponin I <0.01 0.00 - 0.03 ng/mL Specimen Performing Laboratory Blood - Arm, Left [address] [address] Narrative Troponin I (TnI) levels must be [...] 334 ms QTC Calculation(Bazett) 428 ms P [place] 47 degrees R [place] 57 degrees T [place] 48 degrees Normal sinus rhythm Low voltage [...] 334 ms QTC Calculation(Bazett) 428 ms P [place] 47 degrees R [place] 57 degrees T [place] 48 degrees Normal sinus rhythm Low voltage QRS Nonspecific T wave abnormality Abnormal ECG No previous ECGs available Confirmed by Reji LEVINE MICHAEL ([id number]) on 08/30/2017 7:50:05 AM C-Reactive Protein (08/29/2017 11:21 PM) Component Value Ref Range CRP 13.13 (H) 0.00 - 0.50 mg/dL Specimen Performing Laboratory Blood [address] [address] Type and screen, automated (08/29/2017 11:10 PM) Component Value Ref Range ABO/RH AUTOMATED (BEAKER) O POSITIVE Ab Scrn NEGATIVE Specimen Performing Laboratory Blood - Arm, [address] [address] PT/aPTT (08/29/2017 11:10 PM) Component Value Ref Range Protime 16.8 (H) 11.7 - 14.7 seconds INR 1.4 <=5.9 PTT 38.7 (H) 22.5 - 36.0 seconds Specimen Performing Laboratory Blood - Arm, [address] [address] Narrative RECOMMENDED COUMADIN/WARFARIN INR THERAPY RANGES STANDARD DOSE: 2.0 - 3.0 Includes: PROPHYLAXIS for venous thrombosis, systemic embolization; TREATMENT for venous thrombosis and/or pulmonary embolus. HIGH RISK: Target INR is 2.5-3.5 for patients with mechanical heart valves. Sedimentation rate (08/29/2017 11:10 PM) Component Value Ref Range Sed Rate >120 (H) 0 - 15 mm/HR Specimen Performing Laboratory Blood - Arm, [address] [address] after 09/21/2016
--- OUTSIDE RECORDS SUMMARY | 2017-09-22 00:56 | XMS REPORT ---
:1990 Author [facility] Address [address] [place] [address] Care Team Providers Name Role Phone UNKNOWN, [...] Clinicians Facility Department ID 2017-08-17 2017-08-21 Inpatient [facility] [id number] 16:45:00 13:34:00 NIKO Jean M.D. 2017-04-15 2017-04-19 Inpatient [facility] [id number] 15:43:00 14:07:00 NIKO Jean M.D. Results Test Description Test Time Test Comments Text Results Atomic Results Result Comments BLOOD CULTURE 2017-09-05 00:00:00 Test Item Value Reference Range Comments CULTURE (BEAKER) (test ordc=7358) No growth in 5 days BLOOD [id number] 00:00:00 Test Item Value Reference Range Comments CULTURE (BEAKER) (test fqfh=0776) No growth in 5 days ANTI-NUCLEAR ANTIBODY (JUAN)2017-09-04 09:46:00 Test Item Value Reference Range Comments ANTI-NUCLEAR ANTIBODY (JUAN) (BEAKER) (test Positive Negative edvr=295) JUAN TITER AND [id number] 09:46:00 Test Item Value Reference Range Comments JUAN TITER (BEAKER) (test anda=1672) >=:2560 JUAN PATTERN (BEAKER) (test fgdh=1882) Speckled ANTI-DNA [id number] 09:25:00 Test Item Value Reference Range Comments ANTI-DNA TITER (BEAKER) (test lbpe=2386) >=:320 DOUBLE-STRANDED DNA (DSDNA) [id number] 09:24:00 Test Item Value Reference Range Comments ANTI-DNA DS (BEAKER) (test qxap=5280) Positive [id number] 14:25:00Medical Cytology Report Case: [id number] Authorizing Provider: Hernan Stuart MD Collected: 08/31/2017 1250 Ordering Location: [place] [address] CCU Received: 09/02/2017 0842 Pathologist: Jarek Christopher MD Specimen: Pericardial PERICARDIAL FLUID (CYTOSPINS): - NO MALIGNANT CELLS IDENTIFIED Signing Pathologist Direct Phone Line: [phone] effusionPERICARDIAL FLUID10 mls bloody; 4 cytospinsCollected : [id number]: [id number]g [facility], Department of Pathology, [address] [place] [address], [facility], [address] [place] [address], QVOG FLUID CULTURE + GRAM [id number] 09:17:00 Test Item Value Reference Range Comments CULTURE (BEAKER) (test rkvv=8905) No growth GRAM STAIN RESULT (BEAKER) (test 2+ WBCs actv=9998) GRAM STAIN RESULT (BEAKER) (test No organisms seen kvtx=44755) BASIC METABOLIC [id number] 06:01:00 Test Item Value Reference Range Comments SODIUM (BEAKER) (test 133 meq/L 136-145 rnkg=051) POTASSIUM (BEAKER) (test 4.2 meq/L 3.5-5.1 jrgv=023) CHLORIDE (BEAKER) (test 98 meq/L 98-107 zcoh=956) CO2 (BEAKER) (test 27 meq/L 22-29 ymgx=018) BLOOD UREA NITROGEN 7 mg/dL 7-21 (BEAKER) (test xxhk=379) CREATININE (BEAKER) (test 0.69 mg/dL 0.57-1.25 snbt=274) GLUCOSE RANDOM (BEAKER) 91 mg/dL 70-105 (test rlbt=621) CALCIUM (BEAKER) (test 8.5 mg/dL 8.4-10.2 piku=960) EGFR (BEAKER) (test 138 mL/min/1.73 sq m ESTIMATED GFR IS NOT veij=4973) ACCURATE CREATININE CLEARANCE IN PREDICTING GLOMERULAR FILTRATION RATE. ESTIMATED GFR IS NOT APPLICABLE FOR DIALYSIS PATIENTS. CBC W/PLT COUNT & AUTO [id number] 05:41:00 Test Item Value Reference Range Comments WHITE BLOOD CELL COUNT (BEAKER) (test leld=668) 6.3 K/ L 3.5-10.5 RED BLOOD CELL COUNT (BEAKER) (test dosc=845) 3.58 M/ L 4.63-6.08 HEMOGLOBIN (BEAKER) (test dsuf=554) 10.0 GM/DL 13.7-17.5 HEMATOCRIT (BEAKER) (test vmzi=532) 31.2 % 40.1-51.0 MEAN CORPUSCULAR VOLUME (BEAKER) (test yrpq=174) 87.2 fL 79.0-92.2 MEAN CORPUSCULAR HEMOGLOBIN (BEAKER) (test 27.9 pg 25.7-32.2 vbfz=594) MEAN CORPUSCULAR HEMOGLOBIN CONC (BEAKER) (test 32.1 GM/DL 32.3-36.5 jhtj=323) RED CELL DISTRIBUTION WIDTH (BEAKER) (test 12.7 % 11.6-14.4 mjuu=779) PLATELET COUNT (BEAKER) (test cdcn=514) 366 K/CU MM 150-450 MEAN PLATELET VOLUME (BEAKER) (test bdtz=417) 9.3 fL 9.4-12.4 NUCLEATED RED BLOOD CELLS (BEAKER) (test 0 /100 WBC 0-0 vmdc=598) NEUTROPHILS RELATIVE PERCENT (BEAKER) (test 68 % wwtp=280) LYMPHOCYTES RELATIVE PERCENT (BEAKER) (test 16 % oyzt=620) MONOCYTES RELATIVE PERCENT (BEAKER) (test 9 % ifik=099) EOSINOPHILS RELATIVE PERCENT (BEAKER) (test 6 % qvvd=748) BASOPHILS RELATIVE PERCENT (BEAKER) (test 1 % rdku=895) NEUTROPHILS ABSOLUTE COUNT (BEAKER) (test 4.29 K/ L 1.78-5.38 wuwn=882) LYMPHOCYTES ABSOLUTE COUNT (BEAKER) (test 1.01 K/ L 1.32-3.57 ztau=764) MONOCYTES ABSOLUTE COUNT (BEAKER) (test 0.57 K/ L 0.30-0.82 ggvf=478) EOSINOPHILS ABSOLUTE COUNT (BEAKER) (test 0.36 K/ L 0.04-0.54 lqfu=589) BASOPHILS ABSOLUTE COUNT (BEAKER) (test 0.03 K/ L 0.01-0.08 gxdm=402) IMMATURE GRANULOCYTES-RELATIVE PERCENT (BEAKER) 1 % 0-1 (test nlhc=9816) HIV-1 ANTIGEN WITH HIV-1/2 [id number] 11:52:00 Test Item Value Reference Range Comments HIV-1 ANTIGEN WITH HIV 1\T\2 ANTIBODY (2) Nonreactive Nonreactive (BEAKER) (test gerp=0645) BASIC METABOLIC [id number] 05:07:00 Test Item Value Reference Range Comments SODIUM (BEAKER) (test 137 meq/L 136-145 atgd=107) POTASSIUM (BEAKER) (test 4.2 meq/L 3.5-5.1 ckyd=613) CHLORIDE (BEAKER) (test 101 meq/L 98-107 pmst=563) CO2 (BEAKER) (test 26 meq/L 22-29 unvl=819) BLOOD UREA NITROGEN 9 mg/dL 7-21 (BEAKER) (test pexa=419) CREATININE (BEAKER) (test 0.75 mg/dL 0.57-1.25 jonw=087) GLUCOSE RANDOM (BEAKER) 101 mg/dL 70-105 (test xtlo=375) CALCIUM (BEAKER) (test 8.8 mg/dL 8.4-10.2 ouhj=588) EGFR (BEAKER) (test 125 mL/min/1.73 sq m ESTIMATED GFR IS NOT sgtl=1063) ACCURATE CREATININE CLEARANCE IN PREDICTING GLOMERULAR FILTRATION RATE. ESTIMATED GFR IS NOT APPLICABLE FOR DIALYSIS PATIENTS. PROTHROMBIN TIME/[id number] 04:54:00 Test Item Value Reference Range Comments PROTIME (BEAKER) (test gitc=810) 15.7 seconds 11.7-14.7 INR (BEAKER) (test hocs=514) 1.3 <=5.9 RECOMMENDED COUMADIN/WARFARIN INR THERAPY RANGESSTANDARD DOSE: 2.0 - 3.0 Includes: PROPHYLAXIS forvenous thrombosis, systemic embolization; TREATMENT for venous thrombosis and/or pulmonary embolus.HIGH RISK: Target INR is 2.5-3.5 for patients with mechanical heart valves.RESPIRATORY PANEL [id number] 09:00 :00 Test Item Value Reference Range Comments HUMAN METAPNEUMOVIRUS (BEAKER) (test Not detected Not detected, Inconclusive qonx=4947) RHINOVIRUS (BEAKER) (test rtkn=3161) Not detected Not detected, Inconclusive INFLUENZA A (BEAKER) (test Not detected Not detected, Inconclusive fyyk=4405) INFLUENZA A SUBTYPE H1 (BEAKER) Not detected Not detected, Inconclusive (test czcx=5760) INFLUENZA A SUBTYPE H3 (BEAKER) Not detected Not detected, Inconclusive (test ghhi=0427) INFLUENZA A SUBTYPE H1-2009 (BEAKER) Not detected Not detected, Inconclusive (test zhlg=7847) INFLUENZA B (BEAKER) (test Not detected Not detected, Inconclusive gynv=0288) RESPIRATORY SYNCYTIAL VIRUS (BEAKER) Not detected Not detected, Inconclusive (test srol=1074) PARAINFLUENZA VIRUS 1 (BEAKER) (test Not detected Not detected, Inconclusive zhnn=3052) PARAINFLUENZA VIRUS 2 (BEAKER) (test Not detected Not detected, Inconclusive zkvm=9944) PARAINFLUENZA VIRUS 3 (BEAKER) (test Not detected Not detected, Inconclusive ncsi=9581) PARAINFLUENZA VIRUS 4 (BEAKER) (test Not detected Not detected, Inconclusive nell=5261) ADENOVIRUS (BEAKER) (test oqev=6621) Not detected Not detected, Inconclusive CORONAVIRUS 229E (BEAKER) (test Not detected Not detected, Inconclusive hmka=7508) CORONAVIRUS HKU1 (BEAKER) (test Not detected Not detected, Inconclusive lhlz=4355) CORONAVIRUS NL63 (BEAKER) (test Not detected Not detected, Inconclusive baja=5640) CORONAVIRUS OC43 (BEAKER) (test Not detected Not detected, Inconclusive ufzg=6245) BORDETELLA PERTUSSIS (BEAKER) (test Not detected Not detected, Inconclusive irgw=7651) CHLAMYDOPHILA PNEUMONIAE (BEAKER) Not detected Not detected, Inconclusive (test nkxo=3962) MYCOPLASMA PNEUMONIAE (BEAKER) (test Not detected Not detected, Inconclusive dmoz=3542) TSH/FREE T4 IF [id number] 06:34:00 Test Item Value Reference Range Comments THYROID STIMULATING HORMONE (BEAKER) (test 1.88 uIU/mL 0.35-4.94 gonz=438) BASIC METABOLIC [id number] 05:51:00 Test Item Value Reference Range Comments SODIUM (BEAKER) (test 134 meq/L 136-145 ocdg=526) POTASSIUM (BEAKER) (test 3.9 meq/L 3.5-5.1 hcwp=141) CHLORIDE (BEAKER) (test 102 meq/L 98-107 jkjx=293) CO2 (BEAKER) (test 22 meq/L 22-29 wzkt=272) BLOOD UREA NITROGEN 12 mg/dL 7-21 (BEAKER) (test pnxe=114) CREATININE (BEAKER) (test 0.83 mg/dL 0.57-1.25 pywk=567) GLUCOSE RANDOM (BEAKER) 85 mg/dL 70-105 (test zdvl=904) CALCIUM (BEAKER) (test 8.2 mg/dL 8.4-10.2 mdov=050) EGFR (BEAKER) (test 111 mL/min/1.73 sq m ESTIMATED GFR IS NOT lhfk=3342) ACCURATE CREATININE CLEARANCE IN PREDICTING GLOMERULAR FILTRATION RATE. ESTIMATED GFR IS NOT APPLICABLE FOR DIALYSIS PATIENTS. PROTHROMBIN TIME/[id number] 05:18:00 Test Item Value Reference Range Comments PROTIME (BEAKER) (test vtre=078) 16.5 seconds 11.7-14.7 INR (BEAKER) (test vdxe=253) 1.3 <=5.9 RECOMMENDED COUMADIN/WARFARIN INR THERAPY RANGESSTANDARD DOSE: 2.0 - 3.0 Includes: PROPHYLAXIS forvenous thrombosis, systemic embolization; TREATMENT for venous thrombosis and/or pulmonary embolus.HIGH RISK: Target INR is 2.5-3.5 for patients with mechanical heart valves.URINALYSIS W/ REFLEX URINE [id number] 19:32:00 Test Item Value Reference Range Comments COLOR (BEAKER) (test bhxn=219) Yellow CLARITY (BEAKER) (test tmfw=870) Clear SPECIFIC GRAVITY UA (BEAKER) (test atry=526) 1.024 1.001-1.035 PH UA (BEAKER) (test inpt=115) 6.0 5.0-8.0 PROTEIN UA (BEAKER) (test jwgq=223) 30 mg/dL Negative GLUCOSE UA (BEAKER) (test fqyl=929) Negative Negative KETONES UA (BEAKER) (test suro=624) Negative Negative BILIRUBIN UA (BEAKER) (test cfmf=890) Negative Negative BLOOD UA (BEAKER) (test paay=843) Negative Negative NITRITE UA (BEAKER) (test adzm=882) Negative Negative LEUKOCYTE ESTERASE UA (BEAKER) (test utmi=137) Negative Negative UROBILINOGEN UA (BEAKER) (test iuhd=125) 12.0 mg/dL 0.2-1.0 RBC UA (BEAKER) (test tztz=670) 0 /HPF WBC UA (BEAKER) (test ipod=230) 5 /HPF BACTERIA (BEAKER) (test mgpk=290) Rare MUCUS (BEAKER) (test cyzq=8848) Moderate SOURCE(BEAKER) (test jywb=6076) BODY FLUID CELL COUNT WITH [id number] 19:31:00 Test Item Value Reference Range Comments APPEARANCE FLUID (BEAKER) (test bgyq=634) Bloody Clear COLOR FLUID (BEAKER) (test jqov=434) Red Colorless, Straw RBC FLUID (BEAKER) (test fttm=540) 88391 /cu mm <=1 ADJUSTED WBC FLUID (BEAKER) (test vtbg=0938) 67783 /cu mm <=5 LINING CELLS (BEAKER) (test jwci=3301) 0 /cu mm <=1 NEUTROPHILS FLUID (BEAKER) (test aqel=8605) 87 % LYMPHS FLUID (BEAKER) (test qwbo=806) 2 % MONO/MACROPHAGE FLUID (BEAKER) (test ubzd=943) 11 % EOSINOPHILS FLUID (BEAKER) (test lcxi=425) 0 % BASO FLUID (BEAKER) (test vopd=574) 0 % CONTAINER BODY FLUID (BEAKER) (test kegd=1541) EDTA Tube RAD, CHEST, 1 VIEW, NON [id number] 19:17:00Reason for exam:-> dyspneaShould this be performed [...] Raygoza Verified Date/Time: 08/30/2017 19:17:40 ReadingLocation: [facility] Radiology Reading Room Electronically signed by: DOMINICK RAYGOZA M.D. on 07:17 PMCOMPLEMENT COMPONENT [id number] 18:41:00 Test Item Value Reference Range Comments C4 COMPLEMENT (BEAKER) (test nnds=891) 22 mg/dL 15-57 COMPLEMENT COMPONENT [id number] 18:41:00 Test Item Value Reference Range Comments C3 COMPLEMENT (BEAKER) (test oxxl=872) 118 mg/dL 82-193 TROPONIN [id number] 07:06:00 Test Item Value Reference Range Comments TROPONIN I (BEAKER) (test eviw=654) < ng/mL 0.00-0.03 Troponin I (TnI) levels [...] acute neurological disease, and persistent tachyarrhythmia.BASIC METABOLIC [id number] 06:57:00 Test Item Value Reference Range Comments SODIUM (BEAKER) (test 135 meq/L 136-145 agbl=726) POTASSIUM (BEAKER) (test 3.8 meq/L 3.5-5.1 suct=659) CHLORIDE (BEAKER) (test 102 meq/L 98-107 bfor=709) CO2 (BEAKER) (test 24 meq/L 22-29 ffzo=119) BLOOD UREA NITROGEN 12 mg/dL 7-21 (BEAKER) (test osxt=484) CREATININE (BEAKER) (test 0.81 mg/dL 0.57-1.25 ziul=502) GLUCOSE RANDOM (BEAKER) 90 mg/dL 70-105 (test gwgv=823) CALCIUM (BEAKER) (test 8.7 mg/dL 8.4-10.2 kfto=978) EGFR (BEAKER) (test 114 mL/min/1.73 sq m ESTIMATED GFR IS NOT paws=7127) ACCURATE CREATININE CLEARANCE IN PREDICTING GLOMERULAR FILTRATION RATE. ESTIMATED GFR IS NOT APPLICABLE FOR DIALYSIS PATIENTS. PROTHROMBIN TIME/[id number] 06:34:00 Test Item Value Reference Range Comments PROTIME (BEAKER) (test ztzt=858) 16.2 seconds 11.7-14.7 INR (BEAKER) (test ypkm=661) 1.3 <=5.9 RECOMMENDED COUMADIN/WARFARIN INR THERAPY RANGESSTANDARD DOSE: 2.0 - 3.0 Includes: PROPHYLAXIS forvenous thrombosis, systemic embolization; TREATMENT for venous thrombosis and/or pulmonary embolus.HIGH RISK: Target INR is 2.5-3.5 for patients with mechanical heart valves.SEDIMENTATION [id number] 00:34:00 Test Item Value Reference Range Comments SEDIMENTATION RATE, ERYTHROCYTE (BEAKER) (test > mm/HR 0-15 cvsg=376) TROPONIN [id number] 23:59:00 Test Item Value Reference Range Comments TROPONIN I (BEAKER) (test oioy=783) < ng/mL 0.00-0.03 Troponin I (TnI) levels [...] acute neurological disease, and persistent tachyarrhythmia.BASIC METABOLIC [id number] 23:55:00 Test Item Value Reference Range Comments SODIUM (BEAKER) (test 134 meq/L 136-145 wozq=657) POTASSIUM (BEAKER) (test 3.5 meq/L 3.5-5.1 mrms=327) CHLORIDE (BEAKER) (test 99 meq/L 98-107 guxt=995) CO2 (BEAKER) (test 25 meq/L 22-29 jhsp=977) BLOOD UREA NITROGEN 11 mg/dL 7-21 (BEAKER) (test dhkk=631) CREATININE (BEAKER) (test 0.85 mg/dL 0.57-1.25 xamg=804) GLUCOSE RANDOM (BEAKER) 83 mg/dL 70-105 (test auax=132) CALCIUM (BEAKER) (test 8.4 mg/dL 8.4-10.2 mchu=939) EGFR (BEAKER) (test 108 mL/min/1.73 sq m ESTIMATED GFR IS NOT vuba=8965) ACCURATE CREATININE CLEARANCE IN PREDICTING GLOMERULAR FILTRATION RATE. ESTIMATED GFR IS NOT APPLICABLE FOR DIALYSIS PATIENTS. C-REACTIVE [id number] 23:53:00 Test Item Value Reference Range Comments C-REACTIVE PROTEIN (BEAKER) (test uacf=740) 13.13 mg/dL 0.00-0.50 PT/[id number] 23:37:00 Test Item Value Reference Range Comments PROTIME (BEAKER) (test llmb=046) 16.8 seconds 11.7-14.7 INR (BEAKER) (test zjve=216) 1.4 <=5.9 PARTIAL THROMBOPLASTIN TIME (BEAKER) (test 38.7 seconds 22.5-36.0 okjn=958) RECOMMENDED COUMADIN/WARFARIN INR THERAPY RANGESSTANDARD DOSE: 2.0 - 3.0 Includes: PROPHYLAXIS forvenous thrombosis, systemic embolization; TREATMENT for venous thrombosis and/or pulmonary embolus.HIGH RISK: Target INR is 2.5-3.5 for patients with mechanical heart valves.CBC W/PLT COUNT & AUTO [id number] 23:34:00 Test Item Value Reference Range Comments WHITE BLOOD CELL COUNT (BEAKER) (test ggjc=810) 11.5 K/ L 3.5-10.5 RED BLOOD CELL COUNT (BEAKER) (test ycuf=694) 3.60 M/ L 4.63-6.08 HEMOGLOBIN (BEAKER) (test lxmg=233) 10.4 GM/DL 13.7-17.5 HEMATOCRIT (BEAKER) (test xvzy=078) 32.3 % 40.1-51.0 MEAN CORPUSCULAR VOLUME (BEAKER) (test ebdc=442) 89.7 fL 79.0-92.2 MEAN CORPUSCULAR HEMOGLOBIN (BEAKER) (test 28.9 pg 25.7-32.2 ndwk=342) MEAN CORPUSCULAR HEMOGLOBIN CONC (BEAKER) (test 32.2 GM/DL 32.3-36.5 mwpq=586) RED CELL DISTRIBUTION WIDTH (BEAKER) (test 12.5 % 11.6-14.4 rjgx=007) PLATELET COUNT (BEAKER) (test eqho=133) 287 K/CU MM 150-450 MEAN PLATELET VOLUME (BEAKER) (test mtoe=036) 9.3 fL 9.4-12.4 NUCLEATED RED BLOOD CELLS (BEAKER) (test 0 /100 WBC 0-0 oxfp=479) NEUTROPHILS RELATIVE PERCENT (BEAKER) (test 75 % nsre=495) LYMPHOCYTES RELATIVE PERCENT (BEAKER) (test 12 % gjpp=044) MONOCYTES RELATIVE PERCENT (BEAKER) (test 12 % uljc=555) EOSINOPHILS RELATIVE PERCENT (BEAKER) (test 1 % kfzy=308) BASOPHILS RELATIVE PERCENT (BEAKER) (test 0 % neet=633) NEUTROPHILS ABSOLUTE COUNT (BEAKER) (test 8.58 K/ L 1.78-5.38 aslr=322) LYMPHOCYTES ABSOLUTE COUNT (BEAKER) (test 1.39 K/ L 1.32-3.57 iidb=331) MONOCYTES ABSOLUTE COUNT (BEAKER) (test 1.39 K/ L 0.30-0.82 cklj=759) EOSINOPHILS ABSOLUTE COUNT (BEAKER) (test 0.07 K/ L 0.04-0.54 eqpd=193) BASOPHILS ABSOLUTE COUNT (BEAKER) (test 0.02 K/ L 0.01-0.08 gymp=996) IMMATURE GRANULOCYTES-RELATIVE PERCENT (BEAKER) 1 % 0-1 (test mkam=0614) HIV [id number] 10:53:00 Test Item Value Reference Range Comments HIV 1/2 Antibody (test Non-Reactive Non-Reactive HIV1/2 Antibody screen result code=HIV1/2AB) indicates the absence of HIV1 and BBD7nwepmqbpq.However, A Non-Reactive screen result does not rule [...] (test code=HESR) 45 mm/Hr 0-9 Hepatitis Acute [id number] 07:39:00 Test Item Value Reference Range Comments [...] IgM (test Nonreactive Non-Reactive code=HBCABM) C-Reactive Protein, [id number] 07:30:00 Test Item Value Reference Range Comments CRP (test code=CRP) 66.1 mg/L 0.0-5.0 RPR, [id number] 09:33:00 Test Item Value Reference Range Comments RPR (test code=RPR) Non-Reactive Non-Reactive Thyroid Stimulating Hormone (TSH)2017-08-18 07:47:00 Test Item Value Reference Range Comments TSH (test code=TSH) 1.29 mIU/mL 0.270-4.200 Lipid [id number] 07:39:00 Test Item Value Reference Range Comments Cholesterol (test 138 mg/dL 0-200 code=CHOL) Triglycerides (test 169 mg/dL 9-200 code=TRIG) HDL (test code=HDL) 40 mg/dL 40-60 Chol/HDL (test 3.5 Ratio 0.0-5.0 code=CHOLPHDL) LDL, Calculated (test 64 0-130 (NOTE)RISK OF HEART code=LDLC) DISEASEPublished by [place] Heart AssociationAnalyte Optimal Boderline Increased RiskCHOL <200 200-239 >240TRIG <150 150-199 >200HDL Male: >60 <40HDL Female: >60 <50LDL <100 130-159 >160LDL NEAR OPTIMAL IS 100-129 VLDL (test code=VLDL) 34 mg/dL 5-40 LDL/HDL (test code=LDLPHDL) 2 [id number] 18:55:00 Test Item Value Reference Range Comments [...] code=PROPOX) THC (test code=THC) Negative Negative Urinalysis [id number] 18:46:00 Test Item Value Reference Range Comments Color (test code=COLOR) Yellow Yellow,Straw,Pl yellow Clarity (test code=CLAR) Clear Clear Specific [place] (test code=SPGR) 1.024 1.001-1.035 pH (test code=PH) [...] Bacteria (test code=BACT) None /HPF Comprehensive Metabolic [id number] 06:44:00 Test Item Value Reference Range Comments [...] race is not provided, and the patient isAfrican-Ugandan, multiply by 1.212. If sex is not [...] the National Kidney Foundation,http://nkdep.nih .gov CBC with [id number] 06:30:00 Test Item Value Reference Range Comments [...] Lymph Abs (test code=ALYMPH) 1.9 K/cumm 0.5-4.6 Castro Abs (test code=AMONO) 0.8 K/cumm 0.0-1.2 Eos Abs (test code=AEOS) 0.25 K/cumm 0.00-0.74 Baso Abs (test code=ABASO) 0.1 K/cumm 0.00-0.21 RPR, [id number] 15:32:00 Test Item Value Reference Range Comments RPR (test code=RPR) Non-Reactive Non-Reactive Lipid [id number] 09:41:00 Test Item Value Reference Range Comments Cholesterol (test 155 mg/dL 0-200 code=CHOL) Triglycerides (test 137 mg/dL 9-200 code=TRIG) HDL (test code=HDL) 40 mg/dL 40-60 Chol/HDL (test 3.9 Ratio 0.0-5.0 code=CHOLPHDL) LDL, Calculated (test 88 0-130 (NOTE)RISK OF HEART code=LDLC) DISEASEPublished by [place] Heart AssociationAnalyte Optimal Boderline Increased RiskCHOL <200 200-239 >240TRIG <150 150-199 >200HDL Male: >60 <40HDL Female: >60 <50LDL <100 130-159 >160LDL NEAR OPTIMAL IS 100-129 VLDL (test code=VLDL) 27 mg/dL 5-40 LDL/HDL (test code=LDLPHDL) 2 Thyroid Stimulating Hormone (TSH)2017-04-16 09:25:00 Test Item Value Reference Range Comments TSH (test code=TSH) 2.86 mIU/mL 0.270-4.200 Alcohol/Ethanol, [id number] 08:01:00 Test Item Value Reference Range Comments Alcohol, Ethyl (test 0.14 g/dL 0.00-0.01 Intoxicated 0.080 g/dL or code=ETOH) more [id number] 04:28:00 Test Item Value Reference Range Comments [...] 0.32 g/dL 0.00-0.01 danny rblv code=ETOHU) Urinalysis [id number] 04:17:00 Test Item Value Reference Range Comments Color (test code=COLOR) Yellow Yellow,Straw,Pl yellow Clarity (test code=CLAR) Clear Clear Specific [place] (test code=SPGR) 1.013 1.001-1.035 pH (test code=PH) [...] Bacteria (test code=BACT) Few /HPF Comprehensive Metabolic [id number] 03:15:00 Test Item Value Reference Range Comments [...] race is not provided, and the patient isAfrican-Ugandan, multiply by 1.212. If sex is not [...] the National Kidney Foundation,http://nkdep.nih .gov CBC with [id number] 03:12:00 Test Item Value Reference Range Comments [...] Lymph Abs (test code=ALYMPH) 1.6 K/cumm 0.5-4.6 Castro Abs (test code=AMONO) 0.4 K/cumm 0.0-1.2 Eos Abs (test code=AEOS) 0.42 K/cumm 0.00-0.74 Baso Abs (test code=ABASO) 0.1 K/cumm 0.00-0.21 C difficile Toxins [id number] 09:05:00Specimen: StoolCollected: 01/10/2017 07 :00 Status: Final Last Updated: 01/11/2017 09:05 C DIFF TOXIN (Final) ( Final) 01/11/17 No Clostridium difficile toxin presentGlycosylated [id number] 08:05:00 Test Item Value Reference Range Comments HBA1c (test code=HBA1C) 4.8 % 4.8-5.9 RPR, [id number] 18:31:00 Test Item Value Reference Range Comments RPR (test code=RPR) Non-Reactive Non-Reactive Thyroid Stimulating Hormone (TSH)2017-01-01 10:37:00 Test Item Value Reference Range Comments TSH (test code=TSH) 1.85 mIU/mL 0.270-4.200 Lipid [id number] 10:34:00 Test Item Value Reference Range Comments Cholesterol (test 156 mg/dL 0-200 code=CHOL) Triglycerides (test 159 mg/dL 9-200 code=TRIG) HDL (test code=HDL) 47 mg/dL 40-60 Chol/HDL (test 3.3 Ratio 0.0-5.0 code=CHOLPHDL) LDL, Calculated (test 77 0-130 (NOTE)RISK OF HEART code=LDLC) DISEASEPublished by [place] Heart AssociationAnalyte Optimal Boderline Increased RiskCHOL <200 200-239 >240TRIG <150 150-199 >200HDL Male: >60 <40HDL Female: >60 <50LDL <100 130-159 >160LDL NEAR OPTIMAL IS 100-129 VLDL (test code=VLDL) 32 mg/dL 5-40 LDL/HDL (test code=LDLPHDL) 2 Alcohol/Ethanol, [id number] 09:59:00 Test Item Value Reference Range Comments Alcohol, Ethyl (test 0.09 g/dL 0.00-0.01 Intoxicated 0.080 g/dL or code=ETOH) more CBC with [id number] 02:40:00 Test Item Value Reference Range Comments [...] Lymph Abs (test code=ALYMPH) 1.6 K/cumm 0.5-4.6 Castro Abs (test code=AMONO) 0.3 K/cumm 0.0-1.2 Eos Abs (test code=AEOS) 0.33 K/cumm 0.00-0.74 Baso Abs (test code=ABASO) 0.1 K/cumm 0.00-0.21 [id number] 02:39:00 Test Item Value Reference Range Comments [...] VALUESVERIFIED code=ETOHU) BY REPEAT TESTINGHinaEfraín @238am 01/01/2017 [facility] [place] Comprehensive Metabolic [id number] 02:36:00 Test Item Value Reference Range Comments [...] race is not provided, and the patient isAfrican-[place]and[place], multiply by 1.212. If sex is not provided, and thepatient is female, multiply by 0.742. Results for patients <18 years ofage have not been validated by the MDRD study and should be interpretedwith caution.eGFR Result Interpretation:eGFR > or=60 is in the Normal RangeeGFR < 60 may mean kidney diseaseeGFR < 15 may mean kidney failureRanges recommended by the National Kidney Foundation,http://nkdep.nih .gov Urinalysis [id number] 02:17:00 Test Item Value Reference Range Comments Color (test code=COLOR) Yellow Yellow,Straw,Pl yellow Clarity (test code=CLAR) Clear Clear Specific [place] (test code=SPGR) 1.010 1.001-1.035 pH (test code=PH) [...]
[2017-09-22 01:46] LABS: Absolute Lymphocytes (CBC) 1.9 K/uL (0.7-4.9); Absolute Monocytes 0.8 K/uL (0.1-1.3); Absolute Neutrophil 3.7 K/uL (1.8-8.0); Eosinophils % 3.1 % (0-4.4); Hematocrit 41.3 % (39.6-49.0); Lymphocytes % 28.4 % (15.3-44.8); MCH 28.6 pg (27.0-35.0); MCV 88.2 fL (80-100); MPV 7.9 fL (7.6-11.3); Monocytes % 11.7 % (3.3-12.3); RBC Red Blood Cell Count 4.69 M/uL (4.33-5.43)
[2017-09-22 01:47] LABS: Protime INR 0.92
[2017-09-22 02:08] LABS: Glucose Level 107 mg/dL (65-120)
[2017-09-22 02:13] LABS: CKMB Creatine Kinase MB 1.4 ng/ml (0.3-4.0)
[2017-09-22 02:14] LABS: Albumin 3.6 g/dL (3.2-5.5); Alkaline Phosphatase 128 IU/L (42-121); BUN Blood Urea Nitrogen 13 mg/dL (6-20); Bilirubin Direct 0.1 mg/dL (0-0.2); Bilirubin Total 0.7 mg/dL (0.3-1.2); Protein, Total 8.4 g/dL (6.0-8.3)
[2017-09-22 02:38] LABS: ALT/SGPT 42 IU/L (10-60); AST/SGOT 40 IU/L (10-42); Alcohol Serum/Plasma 307 mg/dl; Bicarbonate 22 mEq/L (21-31); Creatine Phosphokinase 92 IU/L (22-269); Potassium 3.7 mEq/L (3.6-5.0); Sodium Level 143 mEq/L (135-145)
[2017-09-22] MEDS ORDERED: THIAMINE 200 MG/2 ML INJ ONE (03:58)
[2017-09-22] MEDS ORDERED: NA CHLORIDE 0.9% 1,000 ML ONE (03:58)
--- NOTE | 2017-09-22 04:33 | ER ---
Nurse's Notes [facility] Name: Lobito Pack Age: 26 yrs Sex: Male : 1990 Arrival Date: 09/22/2017 Time: 00:53 Bed 3 Private MD: None, None Diagnosis: Major depressive disorder, recurrent;Alcohol abuse with intoxication Presentation: 09/22 00:58 Presenting complaint: EMS states: THERE WAS A DOMESTIC ISSUE AND HE'S GOT ANXIETY AND bp DEPRESSION. HE ALSO SAYS HE'S SHORT OF BREATH. SO HE'D LIKE HIS MENTAL AND HIS HEALTH ISSUES CHECKED OUT. Transition of care: patient was not received from another setting of care. Onset of symptoms is unknown. Risk Assessment: Do you want to hurt yourself or someone else? Patient reports no desire to harm self or others. Initial Sepsis Screen: Does the patient meet any 2 criteria? No. Patient's initial sepsis screen is negative. Does the patient have a suspected source of infection? No. Patient's initial sepsis screen is negative. Care prior to arrival: None. 00:58 Method Of Arrival: EMS: [facility] bp 00:58 Acuity: LEON 2 bp Triage Assessment: 08:08 Respiratory: Onset: The symptoms/episode began/occurred. jl7 Historical: - Allergies: 01:00 Haldol; bp - Home Meds: 01:00 gabapentin 600 mg Oral tab 1 tab four times a day [Active]; Prednisone Oral [Active]; bp Remeron 15 mg Oral tab 1 tab once daily [Active]; - PMHx: 01:00 Alcoholism; Depression; Dystonic reaction to haldol; Lupus; Mixed connective tissue bp disease; pericarditis; Rheumatoid Arthritis; suicidal ideation; - Immunization history:: Adult Immunizations up to date. - Social history:: Smoking status: Patient uses tobacco products, smokes one-half pack cigarettes per day. - Ebola Screening: : Patient negative for fever greater than or equal to 101.5 degrees Fahrenheit, and additional compatible Ebola Virus Disease symptoms Patient denies exposure to infectious person Patient denies travel to an Ebola-affected area in the 21 days before illness onset No symptoms or risks identified at this time. Screenin:11 Abuse screen: Denies threats or abuse. Denies injuries from another. Nutritional bp screening: No deficits noted. Tuberculosis screening: No symptoms or risk factors identified. Fall Risk None identified. Assessment: 01:11 General: Appears in no apparent distress. comfortable, Behavior is cooperative, bp appropriate for age, anxious. Pain: Denies pain. Neuro: Level of Consciousness is alert, obeys commands, lethargic, Oriented to person, place, time, situation, Appropriate for age. Cardiovascular: Rhythm is sinus rhythm. Respiratory: Airway is patent Respiratory effort is even, unlabored, Respiratory pattern is regular, symmetrical, Breath sounds are clear. GI: No signs and/or symptoms were reported involving the gastrointestinal system. : No signs and/or symptoms were reported regarding the genitourinary system. EENT: No deficits noted. Derm: No deficits noted. Musculoskeletal: Circulation, motion, and sensation intact. Range of motion: intact in all extremities. 01:30 Reassessment: PT REFUSING PIV PLACEMENT. bp 02:30 Reassessment: PT SLEEPING, NO S/S ACUTE DISTRESS. bp 04:00 Reassessment: Explained to pt that he needed fluids and he agreed to an IV. tl2 04:56 Reassessment: Pt does not have a ride home. Charge nurse stated to let pt sleep in ER tl2 until 6 am and find a ride home in the morning. 05:10 Reassessment: Patient appears in no apparent distress at this time. No changes from jd3 previously documented assessment. Patient and/or family updated on plan of care and expected duration. Pain level reassessed. Patient is alert, oriented x 3, equal unlabored respirations, skin warm/dry/pink. 08:00 Reassessment: Pt denies discomfort. Pt phoned a friend for a ride. Pt ambulated with jl7 steady gate out of the ER. Vital Signs: 01:00 BP 132 / 77; Pulse 99; Resp 18; Temp 98; Pulse Ox 99% ; Weight 90.72 kg; bp 02:30 BP 115 / 68; Pulse 90; Resp 14; Pulse Ox 99% ; bp 05:09 BP 105 / 59; Pulse 97; Resp 18 S; Pulse Ox 97% on R/A; Pain 0/10; jd3 ED Course: 00:53 Patient arrived in ED. bp 00:53 None, None is Private Physician. ds1 00:56 Richard Delatorre MD is Attending Physician. chris 00:58 Gonzalo Gilliam, RONA is Primary Nurse. bp 00:59 Triage completed. bp 01:00 Arm band placed on. bp 01:11 Patient has correct armband on for positive identification. Placed in gown. Bed in low bp position. Call light in reach. Side rails up X2. 01:14 X-ray completed. Portable x-ray completed in exam room. Patient tolerated procedure jw2 well. 01:17 XRAY Chest (1 view) In Process Unspecified. EDOH 03:51 Primary Nurse role handed off by Gonzalo Gilliam, RONA jnorma 03:51 Jose Dubose, RONA is Primary Nurse. jd3 04:00 No provider procedures requiring assistance completed. Inserted saline lock: 20 gauge tl2 in left antecubital area, using aseptic technique. Blood collected. 08:09 IV discontinued, intact, bleeding controlled, No redness/swelling at site. Pressure jl7 dressing applied. Administered Medications: 01:22 Not Given (Patient Refused): NS 0.9% 1000 ml IV at 1 bolus Per protocol; 1000 mL bolus bp 04:00 Drug: Thiamine 100 mg Route: IV; Rate: bolus; Site: left antecubital; tl2 04:00 Drug: NS 0.9% 1000 ml Route: IV; Rate: 1 bolus; Site: left antecubital; tl2 Outcome: 04:33 Discharge ordered by . chris 08:09 Discharged to home ambulatory. mike 08:09 Condition: stable 08:09 Discharge instructions given to patient, Instructed on discharge instructions, follow up and referral plans. Demonstrated understanding of instructions, follow-up care. 08:09 Patient left the ED. jl7 Signatures: Dispatcher [employer] Richard Yuan MD MD cha Sanford, Demi ds1 [facility] jw2 Genet Lira RN RN tl2 Dima Mclaughlin RN RN jl7 Jose Dubose RN RN jd3 Gonzalo Gilliam, RONA RN bp
--- NOTE | 2017-09-22 04:33 | EDPHYS ---
Physician Documentation [facility] Name: Lobito Pack Age: 26 yrs Sex: Male : 1990 Arrival Date: 09/22/2017 Time: 00:53 Bed 3 Private MD: None, None ED Physician Richard Delatorre HPI: 09/22 01:06 This 26 yrs old Male presents to ER via EMS with complaints of Anxiety, chris Shortness Of Breath. 01:06 The patient has shortness of breath at rest, with light activity. Onset: The chris symptoms/episode began/occurred 1 day(s) ago. Duration: The symptoms are continuous, and are unchanged since they started. The patient's shortness of breath has no apparent modifying factors. Associated signs and symptoms: The patient has no apparent associated signs or symptoms. Severity of symptoms: At their worst the symptoms were mild moderate in the emergency department the symptoms are unchanged. The patient has experienced similar episodes in the past, multiple times. Historical: - Allergies: 01:00 Haldol; bp - Home Meds: 01:00 gabapentin 600 mg Oral tab 1 tab four times a day [Active]; Prednisone Oral [Active]; bp Remeron 15 mg Oral tab 1 tab once daily [Active]; - PMHx: 01:00 Alcoholism; Depression; Dystonic reaction to haldol; Lupus; Mixed connective tissue bp disease; pericarditis; Rheumatoid Arthritis; suicidal ideation; - Immunization history:: Adult Immunizations up to date. - Social history:: Smoking status: Patient uses tobacco products, smokes one-half pack cigarettes per day. - Ebola Screening: : Patient negative for fever greater than or equal to 101.5 degrees Fahrenheit, and additional compatible Ebola Virus Disease symptoms Patient denies exposure to infectious person Patient denies travel to an Ebola-affected area in the 21 days before illness onset No symptoms or risks identified at this time. ROS: 01:07 Constitutional: Negative for fever, chills, and weight loss, Eyes: Negative for injury, chris pain, redness, and discharge, ENT: Negative for injury, pain, and discharge, Neck: Negative for injury, pain, and swelling, Cardiovascular: Negative for chest pain, palpitations, and edema, Respiratory: Negative for shortness of breath, cough, wheezing, and pleuritic chest pain, Abdomen/GI: Negative for abdominal pain, nausea, vomiting, diarrhea, and constipation, Back: Negative for injury and pain, : Negative for injury, bleeding, discharge, and swelling, MS/Extremity: Negative for injury and deformity, Skin: Negative for injury, rash, and discoloration, Neuro: Negative for headache, weakness, numbness, tingling, and seizure, Allergy/Immunology: Negative for hives, rash, and allergies, Endocrine: Negative for neck swelling, polydipsia, polyuria, polyphagia, and marked weight changes, Hematologic/Lymphatic: Negative for swollen nodes, abnormal bleeding, and unusual bruising. : Psych: Positive for anxiety, depression. Exam: : Constitutional: This is a well developed, well nourished patient who is awake, alert, chris and in no acute distress. Head/Face: Normocephalic, atraumatic. Eyes: Pupils equal round and reactive to light, extra-ocular motions intact. Lids and lashes normal. Conjunctiva and sclera are non-icteric and not injected. Cornea within normal limits. Periorbital areas with no swelling, redness, or edema. ENT: Nares patent. No nasal discharge, no septal abnormalities noted. Tympanic membranes are normal and external auditory canals are clear. Oropharynx with no redness, swelling, or masses, exudates, or evidence of obstruction, uvula midline. Mucous membranes moist. Neck: Trachea midline, no thyromegaly or masses palpated, and no cervical lymphadenopathy. Supple, full range of motion without nuchal rigidity, or vertebral point tenderness. No Meningismus. Chest/axilla: Normal chest wall appearance and motion. Nontender with no deformity. No lesions are appreciated. Cardiovascular: Regular rate and rhythm with a normal S1 and S2. No gallops, murmurs, or rubs. Normal PMI, no JVD. No pulse deficits. Respiratory: Lungs have equal breath sounds bilaterally, clear to auscultation and percussion. No rales, rhonchi or wheezes noted. No increased work of breathing, no retractions or nasal flaring. Abdomen/GI: Soft, non-tender, with normal bowel sounds. No distension or tympany. No guarding or rebound. No evidence of tenderness throughout. Back: No spinal tenderness. No costovertebral tenderness. Full range of motion. Male : Normal genitalia with no discharge or lesions. Skin: Warm, dry with normal turgor. Normal color with no rashes, no lesions, and no evidence of cellulitis. MS/ Extremity: Pulses equal, no cyanosis. Neurovascular intact. Full, normal range of motion. Neuro: Awake and alert, GCS 15, oriented to person, place, time, and situation. Cranial nerves II-XII grossly intact. Motor strength 5/5 in all extremities. Sensory grossly intact. Cerebellar exam normal. Normal gait. Psych: Awake, alert, with orientation to person, place and time. Behavior, mood, and affect are within normal limits. Vital Signs: 01:00 BP 132 / 77; Pulse 99; Resp 18; Temp 98; Pulse Ox 99% ; Weight 90.72 kg; bp 02:30 BP 115 / 68; Pulse 90; Resp 14; Pulse Ox 99% ; bp 05:09 BP 105 / 59; Pulse 97; Resp 18 S; Pulse Ox 97% on R/A; Pain 0/10; jd3 MDM: 00:56 Patient medically screened. [facility] 01:08 Data reviewed: vital signs, nurses notes, lab test result(s), EKG, radiologic studies, chris plain films. 09/22 01:06 Order name: Basic Metabolic Panel; Complete Time: 03:15 [facility] 09/22 01:06 Order name: BNP; Complete Time: 03:15 [facility] 09/22 01:06 Order name: CBC with Diff; Complete Time: 03:15 [facility] 09/22 01:06 Order name: Ckmb; Complete Time: 03:15 [facility] 09/22 01:06 Order name: CPK; Complete Time: 03:15 [facility] 09/22 01:06 Order name: LFT's; Complete Time: 03:15 [facility] 09/22 01:06 Order name: Magnesium; Complete Time: 03:15 [facility] 09/22 01:06 Order name: PT-INR; Complete Time: 03:15 [facility] 09/22 01:06 Order name: Ptt, Activated; Complete Time: 03:15 [facility] 09/22 01:06 Order name: Troponin (emerg Dept Use Only); Complete Time: 03:15 [facility] 09/22 01:06 Order name: Acetaminophen; Complete Time: 03:15 [facility] 09/22 01:06 Order name: ETOH Level; Complete Time: 03:15 [facility] 09/22 01:06 Order name: Salicylate; Complete Time: 04:33 [facility] 09/22 01:06 Order name: XRAY Chest (1 view) [facility] 09/22 01:06 Order name: EKG; Complete Time: 01:08 [facility] 09/22 01:06 Order name: Cardiac monitoring; Complete Time: 02:15 [facility] 09/22 01:06 Order name: EKG - Nurse/Tech; Complete Time: 02:15 [facility] 09/22 01:06 Order name: Labs collected and sent; Complete Time: 02:15 [facility] 09/22 01:06 Order name: O2 Per Protocol; Complete Time: 02:15 [facility] 09/22 01:06 Order name: O2 Sat Monitoring; Complete Time: 02:15 [facility] Administered Medications: 01:22 Not Given (Patient Refused): NS 0.9% 1000 ml IV at 1 bolus Per protocol; 1000 mL bolus bp 04:00 Drug: Thiamine 100 mg Route: IV; Rate: bolus; Site: left antecubital; tl2 04:00 Drug: NS 0.9% 1000 ml Route: IV; Rate: 1 bolus; Site: left antecubital; tl2 Disposition: 09/22/17 04:33 Discharged to Home. Impression: Major depressive disorder, recurrent, Alcohol abuse with intoxication. - Condition is Stable. - Discharge Instructions: Alcohol Intoxication, Depression, Adult, Alcohol Abuse and Nutrition, Depression, Adult, [id number]. - Medication Reconciliation Form, Thank You Letter, Antibiotic Education, Prescription Opioid Use form. - Follow up: Private Physician; When: 2 - 3 days; Reason: Recheck today's complaints, Continuance of care, Re-evaluation by your physician. - Problem is new. - Symptoms have improved. Signatures: Dispatcher [employer] EDMS Richard Delatorre MD MD cha Knox, Taylor RN RN tl2 Dima Mclaughlin RN RN jl7 Gonzalo Gilliam RN RN bp Corrections: (The following items were deleted from the chart) : 01:06 IV Saline Lock ordered. [facility] tl2 08:09 04:33 09/22/2017 04:33 Discharged to Home. Impression: Major depressive disorder, jl7 recurrent; Alcohol abuse with intoxication. Condition is Stable. Discharge Instructions: Alcohol Intoxication, Depression, Adult, Alcohol Abuse and Nutrition, Depression, Adult, [id number]. Forms are Medication Reconciliation Form, Thank You Letter, Antibiotic Education, Prescription Opioid Use. Follow up: Private Physician; When: 2 - 3 days; Reason: Recheck today's complaints, Continuance of care, Re-evaluation by your physician. Problem is new. Symptoms have improved. chris
--- NOTE | 2017-09-22 10:43 | RAD REPORT ---
EXAM DESCRIPTION: RAD - Chest Single View - 09/22/2017 1:48 am CLINICAL HISTORY: Shortness of breath COMPARISON: Portable September 05 TECHNIQUE: AP portable chest image was obtained 0114 hours . FINDINGS: Low lung volumes accentuate heart, vasculature and lung markings. No true failure, volume overload or infiltrate suspected. Heart and vasculature are normal. No measurable pleural effusion an d no pneumothorax. No gross bony abnormality seen. No acute aortic findings suspected. IMPRESSION: No acute cardiopulmonary process. No significant change from comparison.
--- NOTE | 2017-09-22 11:18 | EKG ---
Test Date: 2017-09-22 Test Time: 01:29:29 Media Theorist And Author Of: [employer] MEASUREMENT RESULTS: Intervals: Rate: 95 OH: 146 QRSD: 88 QT: 346 QTc: 434 [place]: P: 62 OH: 146 QRS: 79 T: 67 INTERPRETIVE STATEMENTS: Normal sinus rhythm Normal ECG Compared to ECG 09/05/2017 22:06:14 Right-axis deviation no longer present ST (T wave) deviation no longer present Electronically Signed On 09-22-17 11:17:35 CDT by Julio C Robledo
== END 2017-09-22 08:09 | disposition home or self-care (01) ==
LOC: ER 00:52
DX: F33.9 Major depressive disorder, recurrent, unspecified (principal); F10.129 Alcohol abuse with intoxication, unspecified
CPT/HCPCS: 36415; 71045; 80048; 80076; 80320; 80329; 82550; 82553; 83735; 83880; 84484; 85025; 85610; 85730; 93005; 96374; 99284; J3411; J7030

== ENCOUNTER 2017-10-03 18:50 | Emergency (ER) | payer OTHER ==
--- OUTSIDE RECORDS SUMMARY | 2017-10-03 18:53 | XMS REPORT | Clinical Summary ---
:1990 Author Organization [facility] Address [address] [place] [address] Phone Care Team Providers Name Role Phone [...] (HCC);Other Kelvin Morton, depression;Acute MD pericarditis, unspecified Ynog Jose type;Depression, MD Benjamin unspecified depression type;Tobacco abuse after 10/02/2016 Family History Medical History Relation Name Comments [...] 08/30/2017 11:23 AM CDT Pericardial effusion after 10/02/2016 Results ECHOCARDIOGRAM REPORT - SCAN (09/19/2017 6:50 [...] Scan Result 0 Specimen Performing Laboratory Blood [facility] [address] [facility], [address] [place] [address] CBC with platelet count + automated diff [...] - 1 % Specimen Performing Laboratory Blood [facility] [address] [place] [address] [place] [address] CBC with platelet count + automated diff (09/02/2017 5:25 AM)Only the most recent of2 resultswithin the time period is included. Specimen Performing Laboratory Blood [facility] The following orders were created for panel order CBC with platelet count + automated diff. Procedure Abnormality Status --------- ------ CBC with platelet count ...[[id number]]AbnormalFinal result Please view results for these tests [...] DIALYSIS PATIENTS. Specimen Performing Laboratory Blood [facility] [address] [address] 2D Echo W/Doppler(CW/PW/Color) (09/01/2017 4:03 PM)Only the most recent of4 resultswithin the time period is included. 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 [facility] [[email or web address]] 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 Life Advisor Stella Interpreting Fazal Bailey Physician Procedure Type [...] Antibody Nonreactive Nonreactive Specimen Performing Laboratory Blood [address] [address] Sjogren's antibodies (09/01/2017 4:33 AM) Component Value Ref Range Anti-Ss-A <1.0 NEG <1.0 NEGATIVE AI Anti-Ss-B <1.0 NEG <1.0 NEGATIVE AI Specimen Performing Laboratory Blood [facility] [address] [address] Narrative Performing Lab [facility] [address] [address] Emil Darnell MD, PhD, PHANI Anti-DNA Titer (09/01/2017 4:33 AM) Component Value Ref Range Anti-DNA Titer >=1:320 Specimen Performing Laboratory Blood [address] [address] Actin (Smooth Muscle) Antibody, IgG (09/01/2017 4:33 [...] Specimen Performing Laboratory Blood [facility] [address] [place] [address] Narrative Performing Lab [facility] [address] [place] [address] Emil Darnell MD, PhD, PHANI JUAN Titer & Pattern (09/01/2017 4:33 AM) Component Value Ref Range JUAN Titer >=1:2560 JUAN Pattern Speckled Specimen Performing Laboratory [address] [address] Double-Stranded DNA (dsDNA) Antibody (09/01/2017 4:33 AM) Component Value Ref Range ds DNA Ab Positive Specimen Performing Laboratory [address] [address] Prothrombin time/INR (09/01/2017 4:33 AM)Only the most recent of3 resultswithin the time period is included. Component Value Ref Range Protime 15.7 (H) 11.7 - 14.7 seconds INR 1.3 <=5.9 Specimen Performing Laboratory [address] [address] Narrative RECOMMENDED COUMADIN/WARFARIN INR THERAPY RANGES STANDARD DOSE: 2.0 - 3.0 Includes: PROPHYLAXIS for venous thrombosis, systemic embolization; TREATMENT for venous thrombosis and/or pulmonary embolus. HIGH RISK: Target INR is 2.5-3.5 for patients with mechanical heart valves. Anti-Nuclear Antibody (JUAN) (09/01/2017 4:33 AM) Component Value Ref Range JUAN Positive (A) Negative Specimen Performing Laboratory [address] [address] TRANSFUSION SERVICE REPORT - SCAN (08/31/2017 5:42 PM)Only the most recent of2 resultswithin the time period is included.Cytology (08/31/2017 12:50 PM) Component Value Ref Range Case Report Medical Cytology Report Case: [id number] Authorizing Provider:Hernan Stuart MDCollected: 08/31/2017 1250 Ordering Location: [place] [address] CCUReceived: 09/02/2017 0842 Pathologist: Jarek Christopher MD Specimen:Pericardial DIAGNOSIS PERICARDIAL FLUID (CYTOSPINS): - NO MALIGNANT CELLS IDENTIFIED Signing Pathologist Direct Phone Line: [phone] CPT Code(s) 32361 CLINICAL DATA Pericardial effusion SPECIMEN SOURCE PERICARDIAL FLUID GROSS DESCRIPTION 10 mls bloody; 4 cytospins Collected: [id number] Received: [id number] STATEMENT OF ADEQUACY Satisfactory Technical component was performed at [facility], Department of Pathology, [address] [place] [address], Professional component was performed [facility], at Department of Pathology, [address] [place] [address], Specimen Performing Laboratory Body Fluid - Pericardial [address] [address] TSH/Free T4 If Indicated (08/31/2017 4:53 AM) Component Value Ref Range TSH 1.88 0.35 - 4.94 uIU/mL Specimen Performing Laboratory Blood - Arm, Right [address] [address] Urinalysis w/Microscopic + Reflex to Culture (08/30/2017 6:06 PM) Component Value Ref Range Color, UA Yellow Clarity, UA Clear Specific [place], UA 1.024 1.001 - 1.035 pH, UA [...] Specimen Performing Laboratory Urine - Urine, Voided [address] [address] Histoplasma antigen, urine (08/30/2017 6:06 PM) Component [...] analytical performance characteristics have been determined by [facility]. It has not been cleared or approved by the U.S. Food and Drug Administration.The FDA has determined that such clearance or approval is not necessary. This assay has been validated pursuant to the CLIA regulations andis used for clinical purposes. Specimen Performing Laboratory Urine - Urine, Voided [facility] [address] [address] Narrative Performing Lab *QDID [facility] [address] [place] [phone] Tomasz Nunez MD XR chest 1 view [...] MD Report Verified Date/Time:08/30/2017 19:17:40 Reading Location: [facility] Radiology Reading Room Procedure Note Interface, External [...] Report Verified Date/Time: 08/30/2017 19:17:40 Reading Location: [facility] Radiology Reading Room Blood culture (08/30/2017 5:38 PM)Only the most recent of2 resultswithin the time period is included. Component Value Ref Range Result No growth in 5 days Specimen Performing Laboratory Blood - Arm, Right [address] [address] [facility] (08/30/2017 5:37 PM) Component Value Ref Range [...] Inconclusive Specimen Performing Laboratory Nasopharyngeal - Pericardial [address] [address] Fungus culture + smear (08/30/2017 5:37 PM) Component Value Ref Range Result No fungus isolated in 28 days Fungus Smear No fungi seen Specimen Performing Laboratory Body Fluid - Pericardial [address] [address] Complement Component C3 (08/30/2017 5:37 PM) Component Value Ref Range C3 Complement 118 82 - 193 mg/dL Specimen Performing Laboratory Blood - Arm, Right [address] [address] Complement Component C4 (08/30/2017 5:37 PM) Component Value Ref Range C4 Complement 22 15 - 57 mg/dL Specimen Performing Laboratory Blood - Arm, Right [address] [address] Body fluid culture + gram stain (08/30/2017 11:00 AM) Component Value Ref Range Result No growth Gram Stain Result 2+ WBCs Gram Stain Result No organisms seen Specimen Performing Laboratory Body Fluid - Pericardium [address] [address] Body fluid cell count with differential (08/30/2017 11:00 AM) Component Value Ref Range Appearance Bloody (A) Clear Color Red (A) Colorless, Straw RBCs [address] (H) <=1 /cu mm Adjusted WBC Count [address] (H) <=5 /cu mm Lining Cells 0 <=1 /cu mm % Segs 87 % % Lymphs 2 % % Monos 11 % % Eos 0 % % Baso 0 % Container Body Fluid EDTA Tube Specimen Performing Laboratory Other - EFREN Drain [address] [address] Troponin I (08/30/2017 6:05 AM)Only the most recent of2 resultswithin the time period is included. Component Value Ref Range Troponin I <0.01 0.00 - 0.03 ng/mL Specimen Performing Laboratory Blood - Arm, Left [address] [address] Narrative Troponin I (TnI) levels must be [...] 334 ms QTC Calculation(Bazett) 428 ms P [place] 47 degrees R [place] 57 degrees T [place] 48 degrees Normal sinus rhythm Low voltage [...] 334 ms QTC Calculation(Bazett) 428 ms P [place] 47 degrees R [place] 57 degrees T [place] 48 degrees Normal sinus rhythm Low voltage QRS Nonspecific T wave abnormality Abnormal ECG No previous ECGs available Confirmed by Reji LEVINE MICHAEL ([id number]) on 08/30/2017 7:50:05 AM C-Reactive Protein (08/29/2017 11:21 PM) Component Value Ref Range CRP 13.13 (H) 0.00 - 0.50 mg/dL Specimen Performing Laboratory Blood [address] [address] Type and screen, automated (08/29/2017 11:10 PM) Component Value Ref Range ABO/RH AUTOMATED (BEAKER) O POSITIVE Ab Scrn NEGATIVE Specimen Performing Laboratory Blood - Arm, [address] [address] PT/aPTT (08/29/2017 11:10 PM) Component Value Ref Range Protime 16.8 (H) 11.7 - 14.7 seconds INR 1.4 <=5.9 PTT 38.7 (H) 22.5 - 36.0 seconds Specimen Performing Laboratory Blood - Arm, [address] [address] Narrative RECOMMENDED COUMADIN/WARFARIN INR THERAPY RANGES STANDARD DOSE: 2.0 - 3.0 Includes: PROPHYLAXIS for venous thrombosis, systemic embolization; TREATMENT for venous thrombosis and/or pulmonary embolus. HIGH RISK: Target INR is 2.5-3.5 for patients with mechanical heart valves. Sedimentation rate (08/29/2017 11:10 PM) Component Value Ref Range Sed Rate >120 (H) 0 - 15 mm/HR Specimen Performing Laboratory Blood - Arm, Right [facility] [address] [address] after 10/02/2016
--- OUTSIDE RECORDS SUMMARY | 2017-10-03 18:53 | XMS REPORT | Clinical Summary ---
:1990 Author Organization [facility] Address [address] [place] [address] Care Team Providers Name Role Phone Asked, [...] Bradshaw MD 02/11/2017 Ivan Kaplan MD after 10/02/2016 Social History Tobacco Use Types Packs/Day Years [...] Left (02/07/2017 7:15 PM) Specimen Performing Laboratory [facility] [address] [place] [address] Narrative EXAMINATION:XR ELBOW 2 VW LEFT CLINICAL HISTORY:ARTHRITISELBOW COMPARISON:None. IMPRESSION: There is a small elbow joint effusion. There are no bony changes to suggest degenerative arthritis or obvious inflammatory arthritis otherwise. Bone mineralization is normal. There is no focal bone lesion. [facility]-[id number] Procedure Note Hm Interface, Radiology Results Incoming - 02/07/2017 9:35 PM CDT EXAMINATION: XR ELBOW 2 VW LEFT CLINICAL HISTORY: ARTHRITIS ELBOW COMPARISON: None. IMPRESSION: There is a small elbow joint effusion. There are no bony changes to suggest degenerative arthritis or obvious inflammatory arthritis otherwise. Bone mineralization is normal. There is no focal bone lesion. [facility]-[id number] CT Head Wo Contrast (02/04/2017 10:53 AM) Specimen Performing Laboratory [facility] [facility] [address] [place] [address] Narrative EXAMINATION: CT HEAD WO CONTRAST CLINICAL [...] for additional pertinent findings, details and comments. [id number] Procedure Note Interface, Radiology Results Incoming - [...] for additional pertinent findings, details and comments. [id number] Urine drugs of abuse screen (02/04/2017 8:00 AM) Component Value Ref Range Amphetamine screen, urine Positive (A) Barbiturate screen, urine Negative Benzodiazepine screen, urine Negative Cannabinoid screen, urine Negative Cocaine screen, urine Negative Methadone metabolite (EDDP), urine Negative Opiates screen, urine Negative Oxycodone screen, urine Negative Phencyclidine screen, urine Negative Tricyclic screen, urine Negative Comment: Drug screen minimum concentration of detectability Vywdssetqwft0302 ng/mL Barbiturates 200 ng/mL Manvjgiemibowky617 ng/mL Rdhvdle510 ng/mL Dudsxlzex024 ng/mL Apqwsxt025 ng/mL Bmawjaegm006 ng/mL Phencyclidine 25 ng/mL Knbettnnjpdq85 ng/mL Irrqutzfcq9801 ng/mL Negative test results indicates presumptive evidence of lack of clinically significant drug concentration in this urine specimen. Positive test results are presumptive evidence of clinically significant drug concentration in this urine specimen. Testing performed for medical purposes only. Specimen Performing Laboratory Urine [facility] DEPARTMENT OF PATHOLOGY AND GENOMIC MEDICINE [address] [place] [address] Syphilis treponemal IgG (02/04/2017 6:00 AM) Component Value Ref Range Syphilis treponemal IgG Non-reactiveComment: Non-reactive: No Non-reactive serological evidence of Syphilis infection Specimen Performing Laboratory Serum [facility] DEPARTMENT OF PATHOLOGY AND [facility] MEDICINE [address] [place] [address] Thyroid stimulating hormone (02/04/2017 6:00 AM) Component Value Ref Range TSH 2.25 0.27 - 4.20 uIU/mL Specimen Performing Laboratory Plasma specimen [facility] DEPARTMENT OF PATHOLOGY AND GENOMIC MEDICINE [address] [place] [address] Hemoglobin A1c (02/04/2017 6:00 AM) Component Value [...] [facility] OF PATHOLOGY AND [facility] MEDICINE [address] [place] [address] Hepatic function panel (02/04/2017 6:00 AM) Component Value Ref Range Albumin 3.2 (L) 3.5 - 5.0 g/dL Total bilirubin 0.4 0.0 - 1.2 mg/dL Bilirubin direct <0.2 0.0 - 0.3 mg/dL Alkaline phosphatase 91 40 - 129 U/L Protein 7.5 6.3 - 8.3 g/dL Comment: Lane 4.6-7.0 g/dL 1 week 4.4-7.6 g/dL 7 months-1year5.1-7.3 g/dL 1-2 years5.6-7.5 g/dL >3 years6.0-8.0 g/dL 18-150 6.3-8.3 g/dL ALT 47 5 - 50 U/L AST 36 10 - 50 U/L Specimen Performing Laboratory Plasma specimen [facility] DEPARTMENT OF PATHOLOGY AND GENOMIC MEDICINE [address] [place] [address] Lipid panel (02/04/2017 6:00 AM) Component Value Ref Range Cholesterol 113 <200 mg/dL Triglycerides 62 <150 mg/dL HDL cholesterol 38 (L) >40 mg/dL LDL cholesterol 69Comment: Result obtained by direct LDL <100 mg/dL measurement Lipid panel interpretation SeeBelow Comment: Total Cholesterol (mg/dL) <200 Desirable [phone]-fqtp >=240High Triglycerides (mg/dL) <150 Normal 749-778Fjtfsackmp-eifk 200-499High >=500Very high HDL Cholesterol (mg/dL) <40Low (male) <40Low (female) LDL Cholesterol (mg/dL) <100 Optimal 100-129Near or above optimal 338-522Tzbqedypwr-wino 160-189High >=190Very high Risk Catergories that modify [...] (>=200 mg/dL) Specimen Performing Laboratory Plasma specimen [facility] DEPARTMENT OF PATHOLOGY AND GENOMIC MEDICINE [address] [place] [address] ECG 12 lead (02/03/2017 7:34 PM) Component Value Ref Range Ventricular rate 79 Atrial rate 79 DE interval 146 QRSD interval 98 QT interval 388 QTC interval 444 P axis 1 59 QRS axis 1 79 T wave axis 70 EKG impression Normal sinus rhythm-Normal ECG-No previous ECGs available- Specimen Performing Laboratory [facility] [address] [place] [address] after 10/02/2016
--- OUTSIDE RECORDS SUMMARY | 2017-10-03 18:54 | XMS REPORT ---
:1990 [facility] [address] [place] [address] Care Team Providers Name Role Phone UNKNOWN, [...] Clinicians Facility Department ID 2017-08-17 2017-08-21 Inpatient [facility] [id number] 16:45:00 13:34:00 NIKO Jean M.D. 2017-04-15 2017-04-19 Inpatient [facility] [id number] 15:43:00 14:07:00 NIKO Jean M.D. Results Test Description Test Time Test Comments Text Results Atomic Results Result Comments FUNGUS CULTURE + SMEAR 2017-09-27 12:35:00 Test Item Value Reference Range Comments CULTURE (BEAKER) (test kibr=9374) No fungus isolated in 28 days FUNGUS SMEAR (BEAKER) (test ubax=4802) No fungi seen BLOOD [id number] 00:00:00 Test Item Value Reference Range Comments CULTURE (BEAKER) (test ibsr=4391) No growth in 5 days BLOOD [id number] 00:00:00 Test Item Value Reference Range Comments CULTURE (BEAKER) (test iqrz=0180) No growth in 5 days ANTI-NUCLEAR ANTIBODY (JUAN)2017-09-04 09:46:00 Test Item Value Reference Range Comments ANTI-NUCLEAR ANTIBODY (JUAN) (BEAKER) (test Positive Negative kozk=746) JUAN TITER AND [id number] 09:46:00 Test Item Value Reference Range Comments JUAN TITER (BEAKER) (test buxw=3120) >=:2560 JUAN PATTERN (BEAKER) (test dnky=6284) Speckled ANTI-DNA [id number] 09:25:00 Test Item Value Reference Range Comments ANTI-DNA TITER (BEAKER) (test faje=2938) >=:320 DOUBLE-STRANDED DNA (DSDNA) [id number] 09:24:00 Test Item Value Reference Range Comments ANTI-DNA DS (BEAKER) (test boxg=7890) Positive [id number] 14:25:00Medical Cytology Report Case: [id number] Authorizing Provider: Hernan Stuart MD Collected: 08/31/2017 1250 Ordering Location: [place] [address] CC Received: 09/02/2017 0842 Pathologist: Jarek Christopher MD Specimen: Pericardial PERICARDIAL FLUID (CYTOSPINS): - NO MALIGNANT CELLS IDENTIFIED Signing Pathologist Direct Phone Line: [phone] 62611Mfzglounvdv effusionPERICARDIAL FLUID10 mls bloody; 4 cytospinsCollected : [id number]: [id number] [facility], Department of Pathology, [address] [place] [address], [facility], [facility] of [facility], [address] [place] [address], EALS FLUID CULTURE + GRAM [id number] 09:17:00 Test Item Value Reference Range Comments CULTURE (BEAKER) (test jtio=5309) No growth GRAM STAIN RESULT (BEAKER) (test 2+ WBCs drdq=1798) GRAM STAIN RESULT (BEAKER) (test No organisms seen odjr=94160) BASIC METABOLIC [id number] 06:01:00 Test Item Value Reference Range Comments SODIUM (BEAKER) (test 133 meq/L 136-145 lawy=801) POTASSIUM (BEAKER) (test 4.2 meq/L 3.5-5.1 dyrr=311) CHLORIDE (BEAKER) (test 98 meq/L 98-107 zuqs=626) CO2 (BEAKER) (test 27 meq/L 22-29 bpkh=926) BLOOD UREA NITROGEN 7 mg/dL 7-21 (BEAKER) (test fopw=520) CREATININE (BEAKER) (test 0.69 mg/dL 0.57-1.25 ndcp=485) GLUCOSE RANDOM (BEAKER) 91 mg/dL 70-105 (test duel=561) CALCIUM (BEAKER) (test 8.5 mg/dL 8.4-10.2 dzom=325) EGFR (BEAKER) (test 138 mL/min/1.73 sq m ESTIMATED GFR IS NOT svma=2121) ACCURATE CREATININE CLEARANCE IN PREDICTING GLOMERULAR FILTRATION RATE. ESTIMATED GFR IS NOT APPLICABLE FOR DIALYSIS PATIENTS. CBC W/PLT COUNT & AUTO [id number] 05:41:00 Test Item Value Reference Range Comments WHITE BLOOD CELL COUNT (BEAKER) (test lnmf=233) 6.3 K/ L 3.5-10.5 RED BLOOD CELL COUNT (BEAKER) (test mwfv=381) 3.58 M/ L 4.63-6.08 HEMOGLOBIN (BEAKER) (test csvr=764) 10.0 GM/DL 13.7-17.5 HEMATOCRIT (BEAKER) (test udfs=252) 31.2 % 40.1-51.0 MEAN CORPUSCULAR VOLUME (BEAKER) (test sevf=724) 87.2 fL 79.0-92.2 MEAN CORPUSCULAR HEMOGLOBIN (BEAKER) (test 27.9 pg 25.7-32.2 ggpb=553) MEAN CORPUSCULAR HEMOGLOBIN CONC (BEAKER) (test 32.1 GM/DL 32.3-36.5 zbvz=111) RED CELL DISTRIBUTION WIDTH (BEAKER) (test 12.7 % 11.6-14.4 vwrc=725) PLATELET COUNT (BEAKER) (test fymg=068) 366 K/CU MM 150-450 MEAN PLATELET VOLUME (BEAKER) (test ztim=282) 9.3 fL 9.4-12.4 NUCLEATED RED BLOOD CELLS (BEAKER) (test 0 /100 WBC 0-0 lncu=504) NEUTROPHILS RELATIVE PERCENT (BEAKER) (test 68 % juac=072) LYMPHOCYTES RELATIVE PERCENT (BEAKER) (test 16 % dcey=772) MONOCYTES RELATIVE PERCENT (BEAKER) (test 9 % vreq=981) EOSINOPHILS RELATIVE PERCENT (BEAKER) (test 6 % cqlu=373) BASOPHILS RELATIVE PERCENT (BEAKER) (test 1 % qoqg=766) NEUTROPHILS ABSOLUTE COUNT (BEAKER) (test 4.29 K/ L 1.78-5.38 djje=340) LYMPHOCYTES ABSOLUTE COUNT (BEAKER) (test 1.01 K/ L 1.32-3.57 lqiy=708) MONOCYTES ABSOLUTE COUNT (BEAKER) (test 0.57 K/ L 0.30-0.82 zcyl=168) EOSINOPHILS ABSOLUTE COUNT (BEAKER) (test 0.36 K/ L 0.04-0.54 airc=899) BASOPHILS ABSOLUTE COUNT (BEAKER) (test 0.03 K/ L 0.01-0.08 wwou=851) IMMATURE GRANULOCYTES-RELATIVE PERCENT (BEAKER) 1 % 0-1 (test dzlc=7335) HIV-1 ANTIGEN WITH HIV-1/2 [id number] 11:52:00 Test Item Value Reference Range Comments HIV-1 ANTIGEN WITH HIV 1\T\2 ANTIBODY (2) Nonreactive Nonreactive (BEAKER) (test tgpj=7088) BASIC METABOLIC [id number] 05:07:00 Test Item Value Reference Range Comments SODIUM (BEAKER) (test 137 meq/L 136-145 gfvv=549) POTASSIUM (BEAKER) (test 4.2 meq/L 3.5-5.1 ijfq=199) CHLORIDE (BEAKER) (test 101 meq/L 98-107 gcnl=964) CO2 (BEAKER) (test 26 meq/L 22-29 ejod=952) BLOOD UREA NITROGEN 9 mg/dL 7-21 (BEAKER) (test pqxe=561) CREATININE (BEAKER) (test 0.75 mg/dL 0.57-1.25 izwm=943) GLUCOSE RANDOM (BEAKER) 101 mg/dL 70-105 (test pwsm=811) CALCIUM (BEAKER) (test 8.8 mg/dL 8.4-10.2 kelh=670) EGFR (BEAKER) (test 125 mL/min/1.73 sq m ESTIMATED GFR IS NOT ezhw=3440) ACCURATE CREATININE CLEARANCE IN PREDICTING GLOMERULAR FILTRATION RATE. ESTIMATED GFR IS NOT APPLICABLE FOR DIALYSIS PATIENTS. PROTHROMBIN TIME/[id number] 04:54:00 Test Item Value Reference Range Comments PROTIME (BEAKER) (test bhrw=728) 15.7 seconds 11.7-14.7 INR (BEAKER) (test pkls=435) 1.3 <=5.9 RECOMMENDED COUMADIN/WARFARIN INR THERAPY RANGESSTANDARD DOSE: 2.0 - 3.0 Includes: PROPHYLAXIS forvenous thrombosis, systemic embolization; TREATMENT for venous thrombosis and/or pulmonary embolus.HIGH RISK: Target INR is 2.5-3.5 for patients with mechanical heart valves.RESPIRATORY PANEL [id number] 09:00 :00 Test Item Value Reference Range Comments HUMAN METAPNEUMOVIRUS (BEAKER) (test Not detected Not detected, Inconclusive gfrq=2114) RHINOVIRUS (BEAKER) (test ovvh=8858) Not detected Not detected, Inconclusive INFLUENZA A (BEAKER) (test Not detected Not detected, Inconclusive udxu=0507) INFLUENZA A SUBTYPE H1 (BEAKER) Not detected Not detected, Inconclusive (test gzof=8539) INFLUENZA A SUBTYPE H3 (BEAKER) Not detected Not detected, Inconclusive (test umlk=7540) INFLUENZA A SUBTYPE H1-2009 (BEAKER) Not detected Not detected, Inconclusive (test bvax=8553) INFLUENZA B (BEAKER) (test Not detected Not detected, Inconclusive bqbl=5676) RESPIRATORY SYNCYTIAL VIRUS (BEAKER) Not detected Not detected, Inconclusive (test rhps=4074) PARAINFLUENZA VIRUS 1 (BEAKER) (test Not detected Not detected, Inconclusive pyco=9749) PARAINFLUENZA VIRUS 2 (BEAKER) (test Not detected Not detected, Inconclusive dyfe=9457) PARAINFLUENZA VIRUS 3 (BEAKER) (test Not detected Not detected, Inconclusive opyn=4788) PARAINFLUENZA VIRUS 4 (BEAKER) (test Not detected Not detected, Inconclusive xqkl=6146) ADENOVIRUS (BEAKER) (test nsdv=3587) Not detected Not detected, Inconclusive CORONAVIRUS 229E (BEAKER) (test Not detected Not detected, Inconclusive jhsq=1049) CORONAVIRUS HKU1 (BEAKER) (test Not detected Not detected, Inconclusive iihf=4865) CORONAVIRUS NL63 (BEAKER) (test Not detected Not detected, Inconclusive ktry=4942) CORONAVIRUS OC43 (BEAKER) (test Not detected Not detected, Inconclusive lijx=0488) BORDETELLA PERTUSSIS (BEAKER) (test Not detected Not detected, Inconclusive uuxn=6396) CHLAMYDOPHILA PNEUMONIAE (BEAKER) Not detected Not detected, Inconclusive (test tihl=4975) MYCOPLASMA PNEUMONIAE (BEAKER) (test Not detected Not detected, Inconclusive klex=3638) TSH/FREE T4 IF [id number] 06:34:00 Test Item Value Reference Range Comments THYROID STIMULATING HORMONE (BEAKER) (test 1.88 uIU/mL 0.35-4.94 bwpf=728) BASIC METABOLIC [id number] 05:51:00 Test Item Value Reference Range Comments SODIUM (BEAKER) (test 134 meq/L 136-145 srsr=525) POTASSIUM (BEAKER) (test 3.9 meq/L 3.5-5.1 rykb=958) CHLORIDE (BEAKER) (test 102 meq/L 98-107 chjy=689) CO2 (BEAKER) (test 22 meq/L 22-29 gtve=743) BLOOD UREA NITROGEN 12 mg/dL 7-21 (BEAKER) (test rmba=755) CREATININE (BEAKER) (test 0.83 mg/dL 0.57-1.25 kvxt=759) GLUCOSE RANDOM (BEAKER) 85 mg/dL 70-105 (test vlfy=448) CALCIUM (BEAKER) (test 8.2 mg/dL 8.4-10.2 mgol=140) EGFR (BEAKER) (test 111 mL/min/1.73 sq m ESTIMATED GFR IS NOT botz=6240) ACCURATE CREATININE CLEARANCE IN PREDICTING GLOMERULAR FILTRATION RATE. ESTIMATED GFR IS NOT APPLICABLE FOR DIALYSIS PATIENTS. PROTHROMBIN TIME/[id number] 05:18:00 Test Item Value Reference Range Comments PROTIME (BEAKER) (test uhuq=412) 16.5 seconds 11.7-14.7 INR (BEAKER) (test ngjf=940) 1.3 <=5.9 RECOMMENDED COUMADIN/WARFARIN INR THERAPY RANGESSTANDARD DOSE: 2.0 - 3.0 Includes: PROPHYLAXIS forvenous thrombosis, systemic embolization; TREATMENT for venous thrombosis and/or pulmonary embolus.HIGH RISK: Target INR is 2.5-3.5 for patients with mechanical heart valves.URINALYSIS W/ REFLEX URINE [id number] 19:32:00 Test Item Value Reference Range Comments COLOR (BEAKER) (test jdxi=518) Yellow CLARITY (BEAKER) (test hqlh=824) Clear SPECIFIC GRAVITY UA (BEAKER) (test wbis=932) 1.024 1.001-1.035 PH UA (BEAKER) (test lwhp=293) 6.0 5.0-8.0 PROTEIN UA (BEAKER) (test cbzq=032) 30 mg/dL Negative GLUCOSE UA (BEAKER) (test kcms=612) Negative Negative KETONES UA (BEAKER) (test dkdb=130) Negative Negative BILIRUBIN UA (BEAKER) (test pcob=363) Negative Negative BLOOD UA (BEAKER) (test ebbe=320) Negative Negative NITRITE UA (BEAKER) (test iufc=039) Negative Negative LEUKOCYTE ESTERASE UA (BEAKER) (test epck=843) Negative Negative UROBILINOGEN UA (BEAKER) (test vjcu=109) 12.0 mg/dL 0.2-1.0 RBC UA (BEAKER) (test ilwf=082) 0 /HPF WBC UA (BEAKER) (test ahth=228) 5 /HPF BACTERIA (BEAKER) (test qynk=249) Rare MUCUS (BEAKER) (test ymzc=4394) Moderate SOURCE(BEAKER) (test xznl=6717) BODY FLUID CELL COUNT WITH [id number] 19:31:00 Test Item Value Reference Range Comments APPEARANCE FLUID (BEAKER) (test gaql=101) Bloody Clear COLOR FLUID (BEAKER) (test juic=061) Red Colorless, Straw RBC FLUID (BEAKER) (test kdzu=471) 72722 /cu mm <=1 ADJUSTED WBC FLUID (BEAKER) (test zkzv=4186) 85800 /cu mm <=5 LINING CELLS (BEAKER) (test pgnj=2308) 0 /cu mm <=1 NEUTROPHILS FLUID (BEAKER) (test xxfu=0238) 87 % LYMPHS FLUID (BEAKER) (test ymwj=726) 2 % MONO/MACROPHAGE FLUID (BEAKER) (test azvt=142) 11 % EOSINOPHILS FLUID (BEAKER) (test seqz=821) 0 % BASO FLUID (BEAKER) (test ulpw=587) 0 % CONTAINER BODY FLUID (BEAKER) (test eagz=3246) EDTA Tube RAD, CHEST, 1 VIEW, NON [id number] 19:17:00Reason for exam:-> dyspneaShould this be performed [...] anterior descending coronary artery. Signed: Dominick Raygoza MDReport Verified Date/Time: 08/30/2017 19:17:40 ReadingLocation: [facility] Electronically signed by: DOMINICK RAYGOZA M.D. on 07:17 PMCOMPLEMENT COMPONENT [id number] 18:41:00 Test Item Value Reference Range Comments C4 COMPLEMENT (BEAKER) (test fqod=393) 22 mg/dL 15-57 COMPLEMENT COMPONENT [id number] 18:41:00 Test Item Value Reference Range Comments C3 COMPLEMENT (BEAKER) (test qsej=261) 118 mg/dL 82-193 TROPONIN [id number] 07:06:00 Test Item Value Reference Range Comments TROPONIN I (BEAKER) (test dbht=202) < ng/mL 0.00-0.03 Troponin I (TnI) levels [...] acute neurological disease, and persistent tachyarrhythmia.BASIC METABOLIC [id number] 06:57:00 Test Item Value Reference Range Comments SODIUM (BEAKER) (test 135 meq/L 136-145 xhhx=931) POTASSIUM (BEAKER) (test 3.8 meq/L 3.5-5.1 dygb=601) CHLORIDE (BEAKER) (test 102 meq/L 98-107 fdxv=445) CO2 (BEAKER) (test 24 meq/L 22-29 hgbv=117) BLOOD UREA NITROGEN 12 mg/dL 7-21 (BEAKER) (test rmjk=805) CREATININE (BEAKER) (test 0.81 mg/dL 0.57-1.25 grjt=522) GLUCOSE RANDOM (BEAKER) 90 mg/dL 70-105 (test mzjn=189) CALCIUM (BEAKER) (test 8.7 mg/dL 8.4-10.2 rpeq=983) EGFR (BEAKER) (test 114 mL/min/1.73 sq m ESTIMATED GFR IS NOT bxoa=5351) ACCURATE CREATININE CLEARANCE IN PREDICTING GLOMERULAR FILTRATION RATE. ESTIMATED GFR IS NOT APPLICABLE FOR DIALYSIS PATIENTS. PROTHROMBIN TIME/[id number] 06:34:00 Test Item Value Reference Range Comments PROTIME (BEAKER) (test gwjh=057) 16.2 seconds 11.7-14.7 INR (BEAKER) (test zvqp=186) 1.3 <=5.9 RECOMMENDED COUMADIN/WARFARIN INR THERAPY RANGESSTANDARD DOSE: 2.0 - 3.0 Includes: PROPHYLAXIS forvenous thrombosis, systemic embolization; TREATMENT for venous thrombosis and/or pulmonary embolus.HIGH RISK: Target INR is 2.5-3.5 for patients with mechanical heart valves.SEDIMENTATION [id number] 00:34:00 Test Item Value Reference Range Comments SEDIMENTATION RATE, ERYTHROCYTE (BEAKER) (test > mm/HR 0-15 pviv=013) TROPONIN [id number] 23:59:00 Test Item Value Reference Range Comments TROPONIN I (BEAKER) (test lkqc=964) < ng/mL 0.00-0.03 Troponin I (TnI) levels [...] acute neurological disease, and persistent tachyarrhythmia.BASIC METABOLIC [id number] 23:55:00 Test Item Value Reference Range Comments SODIUM (BEAKER) (test 134 meq/L 136-145 zbnq=517) POTASSIUM (BEAKER) (test 3.5 meq/L 3.5-5.1 lxjm=086) CHLORIDE (BEAKER) (test 99 meq/L 98-107 dlmy=990) CO2 (BEAKER) (test 25 meq/L 22-29 znjd=814) BLOOD UREA NITROGEN 11 mg/dL 7-21 (BEAKER) (test ommw=665) CREATININE (BEAKER) (test 0.85 mg/dL 0.57-1.25 upex=496) GLUCOSE RANDOM (BEAKER) 83 mg/dL 70-105 (test iicp=101) CALCIUM (BEAKER) (test 8.4 mg/dL 8.4-10.2 oxhb=179) EGFR (BEAKER) (test 108 mL/min/1.73 sq m ESTIMATED GFR IS NOT ovsz=2469) ACCURATE CREATININE CLEARANCE IN PREDICTING GLOMERULAR FILTRATION RATE. ESTIMATED GFR IS NOT APPLICABLE FOR DIALYSIS PATIENTS. C-REACTIVE [id number] 23:53:00 Test Item Value Reference Range Comments C-REACTIVE PROTEIN (BEAKER) (test qnif=514) 13.13 mg/dL 0.00-0.50 PT/[id number] 23:37:00 Test Item Value Reference Range Comments PROTIME (BEAKER) (test ubck=642) 16.8 seconds 11.7-14.7 INR (BEAKER) (test keql=007) 1.4 <=5.9 PARTIAL THROMBOPLASTIN TIME (BEAKER) (test 38.7 seconds 22.5-36.0 sjln=750) RECOMMENDED COUMADIN/WARFARIN INR THERAPY RANGESSTANDARD DOSE: 2.0 - 3.0 Includes: PROPHYLAXIS forvenous thrombosis, systemic embolization; TREATMENT for venous thrombosis and/or pulmonary embolus.HIGH RISK: Target INR is 2.5-3.5 for patients with mechanical heart valves.CBC W/PLT COUNT & AUTO [id number] 23:34:00 Test Item Value Reference Range Comments WHITE BLOOD CELL COUNT (BEAKER) (test hsog=798) 11.5 K/ L 3.5-10.5 RED BLOOD CELL COUNT (BEAKER) (test bjvl=829) 3.60 M/ L 4.63-6.08 HEMOGLOBIN (BEAKER) (test fgqf=031) 10.4 GM/DL 13.7-17.5 HEMATOCRIT (BEAKER) (test udwb=532) 32.3 % 40.1-51.0 MEAN CORPUSCULAR VOLUME (BEAKER) (test meyr=380) 89.7 fL 79.0-92.2 MEAN CORPUSCULAR HEMOGLOBIN (BEAKER) (test 28.9 pg 25.7-32.2 mtft=268) MEAN CORPUSCULAR HEMOGLOBIN CONC (BEAKER) (test 32.2 GM/DL 32.3-36.5 dnza=647) RED CELL DISTRIBUTION WIDTH (BEAKER) (test 12.5 % 11.6-14.4 pdod=705) PLATELET COUNT (BEAKER) (test wgux=359) 287 K/CU MM 150-450 MEAN PLATELET VOLUME (BEAKER) (test qazl=838) 9.3 fL 9.4-12.4 NUCLEATED RED BLOOD CELLS (BEAKER) (test 0 /100 WBC 0-0 cvuk=146) NEUTROPHILS RELATIVE PERCENT (BEAKER) (test 75 % glgx=206) LYMPHOCYTES RELATIVE PERCENT (BEAKER) (test 12 % xafd=745) MONOCYTES RELATIVE PERCENT (BEAKER) (test 12 % awsz=541) EOSINOPHILS RELATIVE PERCENT (BEAKER) (test 1 % vvxz=884) BASOPHILS RELATIVE PERCENT (BEAKER) (test 0 % pkup=345) NEUTROPHILS ABSOLUTE COUNT (BEAKER) (test 8.58 K/ L 1.78-5.38 iaza=087) LYMPHOCYTES ABSOLUTE COUNT (BEAKER) (test 1.39 K/ L 1.32-3.57 jtaz=091) MONOCYTES ABSOLUTE COUNT (BEAKER) (test 1.39 K/ L 0.30-0.82 avxu=767) EOSINOPHILS ABSOLUTE COUNT (BEAKER) (test 0.07 K/ L 0.04-0.54 bzdb=348) BASOPHILS ABSOLUTE COUNT (BEAKER) (test 0.02 K/ L 0.01-0.08 jcpu=820) IMMATURE GRANULOCYTES-RELATIVE PERCENT (BEAKER) 1 % 0-1 (test adub=7751) HIV [id number] 10:53:00 Test Item Value Reference Range Comments HIV 1/2 Antibody (test Non-Reactive Non-Reactive HIV1/2 Antibody screen result code=HIV1/2AB) indicates the absence of HIV1 and ZFC5nufvvrbgn.However, A Non-Reactive screen result does not rule [...] (test code=HESR) 45 mm/Hr 0-9 Hepatitis Acute [id number] 07:39:00 Test Item Value Reference Range Comments [...] IgM (test Nonreactive Non-Reactive code=HBCABM) C-Reactive Protein, [id number] 07:30:00 Test Item Value Reference Range Comments CRP (test code=CRP) 66.1 mg/L 0.0-5.0 RPR, [id number] 09:33:00 Test Item Value Reference Range Comments RPR (test code=RPR) Non-Reactive Non-Reactive Thyroid Stimulating Hormone (TSH)2017-08-18 07:47:00 Test Item Value Reference Range Comments TSH (test code=TSH) 1.29 mIU/mL 0.270-4.200 Lipid [id number] 07:39:00 Test Item Value Reference Range Comments Cholesterol (test 138 mg/dL 0-200 code=CHOL) Triglycerides (test 169 mg/dL 9-200 code=TRIG) HDL (test code=HDL) 40 mg/dL 40-60 Chol/HDL (test 3.5 Ratio 0.0-5.0 code=CHOLPHDL) LDL, Calculated (test 64 0-130 (NOTE)RISK OF HEART code=LDLC) DISEASEPublished by [place] Heart AssociationAnalyte Optimal Boderline Increased RiskCHOL <200 200-239 >240TRIG <150 150-199 >200HDL Male: >60 <40HDL Female: >60 <50LDL <100 130-159 >160LDL NEAR OPTIMAL IS 100-129 VLDL (test code=VLDL) 34 mg/dL 5-40 LDL/HDL (test code=LDLPHDL) 2 [id number] 18:55:00 Test Item Value Reference Range Comments [...] code=PROPOX) THC (test code=THC) Negative Negative Urinalysis [id number] 18:46:00 Test Item Value Reference Range Comments Color (test code=COLOR) Yellow Yellow,Straw,Pl yellow Clarity (test code=CLAR) Clear Clear Specific [place] (test code=SPGR) 1.024 1.001-1.035 pH (test code=PH) [...] Bacteria (test code=BACT) None /HPF Comprehensive Metabolic [id number] 06:44:00 Test Item Value Reference Range Comments [...] race is not provided, and the patient isAfrican-Greenlandic, multiply by 1.212. If sex is not [...] the National Kidney Foundation,http://nkdep.nih .gov CBC with [id number] 06:30:00 Test Item Value Reference Range Comments [...] Lymph Abs (test code=ALYMPH) 1.9 K/cumm 0.5-4.6 [place] Abs (test code=AMONO) 0.8 K/cumm 0.0-1.2 Eos Abs (test code=AEOS) 0.25 K/cumm 0.00-0.74 Baso Abs (test code=ABASO) 0.1 K/cumm 0.00-0.21 RPR, [id number] 15:32:00 Test Item Value Reference Range Comments RPR (test code=RPR) Non-Reactive Non-Reactive Lipid [id number] 09:41:00 Test Item Value Reference Range Comments Cholesterol (test 155 mg/dL 0-200 code=CHOL) Triglycerides (test 137 mg/dL 9-200 code=TRIG) HDL (test code=HDL) 40 mg/dL 40-60 Chol/HDL (test 3.9 Ratio 0.0-5.0 code=CHOLPHDL) LDL, Calculated (test 88 0-130 (NOTE)RISK OF HEART code=LDLC) DISEASEPublished by [place] Heart AssociationAnalyte Optimal Boderline Increased RiskCHOL <200 200-239 >240TRIG <150 150-199 >200HDL Male: >60 <40HDL Female: >60 <50LDL <100 130-159 >160LDL NEAR OPTIMAL IS 100-129 VLDL (test code=VLDL) 27 mg/dL 5-40 LDL/HDL (test code=LDLPHDL) 2 Thyroid Stimulating Hormone (TSH)2017-04-16 09:25:00 Test Item Value Reference Range Comments TSH (test code=TSH) 2.86 mIU/mL 0.270-4.200 Alcohol/Ethanol, [id number] 08:01:00 Test Item Value Reference Range Comments Alcohol, Ethyl (test 0.14 g/dL 0.00-0.01 Intoxicated 0.080 g/dL or code=ETOH) more [id number] 04:28:00 Test Item Value Reference Range Comments [...] 0.32 g/dL 0.00-0.01 danny rblv code=ETOHU) Urinalysis [id number] 04:17:00 Test Item Value Reference Range Comments Color (test code=COLOR) Yellow Yellow,Straw,Pl yellow Clarity (test code=CLAR) Clear Clear Specific [place] (test code=SPGR) 1.013 1.001-1.035 pH (test code=PH) [...] Bacteria (test code=BACT) Few /HPF Comprehensive Metabolic [id number] 03:15:00 Test Item Value Reference Range Comments [...] race is not provided, and the patient isAfrican-Green[place]ic, multiply by 1.212. If sex is not [...] the National Kidney Foundation,http://nkdep.nih .gov CBC with [id number] 03:12:00 Test Item Value Reference Range Comments [...] Lymph Abs (test code=ALYMPH) 1.6 K/cumm 0.5-4.6 [place] Abs (test code=AMONO) 0.4 K/cumm 0.0-1.2 Eos Abs (test code=AEOS) 0.42 K/cumm 0.00-0.74 Baso Abs (test code=ABASO) 0.1 K/cumm 0.00-0.21 C difficile Toxins [id number] 09:05:00Specimen: StoolCollected: 01/10/2017 07 :00 Status: Final Last Updated: 01/11/2017 09:05 C DIFF TOXIN (Final) ( Final) 01/11/17 No Clostridium difficile toxin presentGlycosylated [id number] 08:05:00 Test Item Value Reference Range Comments HBA1c (test code=HBA1C) 4.8 % 4.8-5.9 RPR, [id number] 18:31:00 Test Item Value Reference Range Comments RPR (test code=RPR) Non-Reactive Non-Reactive Thyroid Stimulating Hormone (TSH)2017-01-01 10:37:00 Test Item Value Reference Range Comments TSH (test code=TSH) 1.85 mIU/mL 0.270-4.200 Lipid [id number] 10:34:00 Test Item Value Reference Range Comments Cholesterol (test 156 mg/dL 0-200 code=CHOL) Triglycerides (test 159 mg/dL 9-200 code=TRIG) HDL (test code=HDL) 47 mg/dL 40-60 Chol/HDL (test 3.3 Ratio 0.0-5.0 code=CHOLPHDL) LDL, Calculated (test 77 0-130 (NOTE)RISK OF HEART code=LDLC) DISEASEPublished by [place] Heart AssociationAnalyte Optimal Boderline Increased RiskCHOL <200 200-239 >240TRIG <150 150-199 >200HDL Male: >60 <40HDL Female: >60 <50LDL <100 130-159 >160LDL NEAR OPTIMAL IS 100-129 VLDL (test code=VLDL) 32 mg/dL 5-40 LDL/HDL (test code=LDLPHDL) 2 Alcohol/Ethanol, [id number] 09:59:00 Test Item Value Reference Range Comments Alcohol, Ethyl (test 0.09 g/dL 0.00-0.01 Intoxicated 0.080 g/dL or code=ETOH) more CBC with [id number] 02:40:00 Test Item Value Reference Range Comments [...] Lymph Abs (test code=ALYMPH) 1.6 K/cumm 0.5-4.6 [place] Abs (test code=AMONO) 0.3 K/cumm 0.0-1.2 Eos Abs (test code=AEOS) 0.33 K/cumm 0.00-0.74 Baso Abs (test code=ABASO) 0.1 K/cumm 0.00-0.21 [id number] 02:39:00 Test Item Value Reference Range Comments [...] READ BACK LAB VALUESVERIFIED code=ETOHU) BY REPEAT TESTINGWolfWells @238 01/01/2017 [facility] [place] Comprehensive Metabolic [id number] 02:36:00 Test Item Value Reference Range Comments [...] race is not provided, and the patient isAfrican-[place]ic, multiply by 1.212. If sex is not provided, and thepatient is female, multiply by 0.742. Results for patients <18 years ofage have not been validated by the MDRD study and should be interpretedwith caution.eGFR Result Interpretation:eGFR > or=60 is in the Normal RangeeGFR < 60 may mean kidney diseaseeGFR < 15 may mean kidney failureRanges recommended by the National Kidney Foundation,http://nkdep.nih .gov Urinalysis [id number] 02:17:00 Test Item Value Reference Range Comments Color (test code=COLOR) Yellow Yellow,Straw,Pl yellow Clarity (test code=CLAR) Clear Clear Specific [place] (test code=SPGR) 1.010 1.001-1.035 pH (test code=PH) [...]
[2017-10-03 20:31] LABS: Absolute Monocytes 0.6 K/uL (0.1-1.3); Absolute Neutrophil 4.6 K/uL (1.8-8.0); Basophils % 0.7 % (0-1.3); Eosinophils % 3.4 % (0-4.4); Hematocrit 38.1 % (39.6-49.0); Lymphocytes % 16.1 % (15.3-44.8); MCH 28.4 pg (27.0-35.0); MCV 84.4 fL (80-100); MPV 7.2 fL (7.6-11.3); RBC Red Blood Cell Count 4.51 M/uL (4.33-5.43)
[2017-10-03 20:37] LABS: Protime INR 1.11
[2017-10-03 20:44] LABS: Bicarbonate 22 mEq/L (21-31); Glucose Level 118 mg/dL (65-120); Potassium 3.2 mEq/L (3.6-5.0); Sodium Level 138 mEq/L (135-145)
[2017-10-03] MEDS ORDERED: NA CHLORIDE 0.9% 1,000 ML ONE (20:45)
[2017-10-03 20:50] LABS: ALT/SGPT 29 IU/L (10-60); AST/SGOT 32 IU/L (10-42); Albumin 3.4 g/dL (3.2-5.5); Alkaline Phosphatase 123 IU/L (42-121); Bilirubin Direct 0.1 mg/dL (0-0.2); Bilirubin Total 0.4 mg/dL (0.3-1.2); Creatine Phosphokinase 67 IU/L (22-269); Magnesium 1.9 mg/dL (1.8-2.5); Protein, Total 8.7 g/dL (6.0-8.3)
[2017-10-03 20:54] LABS: BUN Blood Urea Nitrogen < 5 mg/dL (6-20); CKMB Creatine Kinase MB 1.2 ng/ml (0.3-4.0)
--- NOTE | 2017-10-03 21:34 | RAD REPORT ---
EXAM DESCRIPTION: CT - Chest For Pe Angio - 10/03/2017 9:19 pm CLINICAL HISTORY: Chest pain and shortness of breath for 2 weeks COMPARISON: August 2017 TECHNIQUE: Dynamically enhanced axial 3 mm thick images of the chest were obtained during administra tion of <100> mL Isovue 370 IV contrast. Coronal and oblique reconstruction images were generated and reviewed. Exam utilizes a protocol for optimal evaluation of pulmonary arterial tree. All CT scans are performed using dose optimization technique as appropriate and may include automated exposure control or mA/KV adjustment according to patient size. FINDINGS: A pulmonary embolus is not seen. A thoracic aortic aneurysm is not noted. A small left pleural effusion is present. A pericardial effusion is not seen. A lung consolidation is not present. Gynecomastia is noted. Mild bilateral axillary lymphadenopathy is unchanged IMPRESSION: Negative for a pulmonary embolism. Small left pleural effusion Mild bilateral axillary lymphadenopathy
--- NOTE | 2017-10-03 21:35 | RAD REPORT ---
EXAM DESCRIPTION: [place] Single View10/03/2017 8:28 pm CLINICAL HISTORY: Chest pain COMPARISON: Sep 22 2017 FINDINGS: The lungs appear clear of acute infiltrate. The heart is normal size A small left pleural effusion is present
[2017-10-03] MEDS ORDERED: IBUPROFEN 200 MG TAB PO ONE (21:55)
--- NOTE | 2017-10-03 22:41 | EDPHYS ---
Physician Documentation [facility] Name: Lobito Pack Age: 26 yrs Sex: Male : 1990 Arrival Date: 10/03/2017 Time: 18:54 Bed 23 Private MD: ED Physician Lamin Schroeder HPI: 10/03 20:02 This 26 yrs old Male presents to ER via Ambulatory with complaints of jmm Shortness Of Breath, Chest Pain. 20:02 The patient has shortness of breath deep inspiration. Onset: The symptoms/episode jmm began/occurred gradually, 2 week(s) ago. Duration: The symptoms are continuous. The patient's shortness of breath is aggravated by deep inspiration. Associated signs and symptoms: Pertinent positives: chest pain, Pertinent negatives: non-productive cough, fever. This is a 26 year old male with a hx of lupus, pericardial effusion, alocholism, depression, that presents to the ED with shortness of breath and chest pain on deep inspiration. The patient states that he was evaluated 2 week prior with similar symptoms in the ED. Patient states also having a recent pericardial effusion. Patient states his chest pain is different from that episode. . Historical: - Allergies: 19:12 Haldol; ch - Home Meds: 19:12 gabapentin 600 mg Oral tab 1 tab four times a day [Active]; Prednisone Oral [Active]; ch Remeron 15 mg Oral tab 1 tab once daily [Active]; - PMHx: 19:12 Alcoholism; Depression; Dystonic reaction to haldol; Lupus; Mixed connective tissue ch disease; pericarditis; Rheumatoid Arthritis; suicidal ideation; - PSHx: 19:12 None; ch - Immunization history:: Adult Immunizations up to date. - Social history:: Smoking status: Patient uses tobacco products, smokes one-half pack cigarettes per day. - Ebola Screening: : Patient negative for fever greater than or equal to 101.5 degrees Fahrenheit, and additional compatible Ebola Virus Disease symptoms Patient denies exposure to infectious person Patient denies travel to an Ebola-affected area in the 21 days before illness onset No symptoms or risks identified at this time. ROS: 20:02 Constitutional: Negative for fever, chills, and weight loss. jmm 20:02 Abdomen/GI: Negative for abdominal pain, nausea, vomiting, diarrhea, and constipation, MS/Extremity: Negative for injury and deformity, Skin: Negative for injury, rash, and discoloration, Neuro: Negative for headache, weakness, numbness, tingling, and seizure. 20:02 Cardiovascular: Positive for chest pain. 20:02 Respiratory: Positive for shortness of breath. 20:02 All other systems are negative. Exam: 20:02 Head/Face: atraumatic. Cardiovascular: Regular rate and rhythm. No gallops, murmurs, jmm or rubs. Full/Equal distal pulses. Respiratory: Lungs have equal breath sounds bilaterally, clear to auscultation. No rales, rhonchi or wheezes noted. No increased work of breathing, no retractions or nasal flaring. Abdomen/GI: Soft, non-tender, with normal bowel sounds. No distension or tympany. No guarding or rebound. No evidence of tenderness throughout. 20:02 Constitutional: The patient appears in no acute distress, alert, awake. 20:02 Skin: Appearance: Color: normal in color. 20:02 Neuro: Orientation: is normal, Mentation: is normal, Memory: is normal, Gait: is steady. 20:02 Psych: Behavior/mood is pleasant, cooperative. Vital Signs: 19:12 BP 130 / 74; Pulse 124; Resp 16; Temp 98.2; Pulse Ox 99% on R/A; Weight 90.72 kg; ch Height 5 ft. 10 in. (177.80 cm); 21:11 BP 127 / 81; Pulse 105; Resp 18; Pulse Ox 97% on R/A; mb3 21:57 BP 128 / 82; Pulse 112; Resp 20; Pulse Ox 97% on R/A; mb3 19:12 Body Mass Index 28.70 (90.72 kg, 177.80 cm) MDM: 19:56 Patient medically screened. chris 20:02 Differential diagnosis: PE, ACS, NE, Aortic dissection, pneumonia, pneumothorax. Data [facility] reviewed: vital signs, nurses notes. 22:00 Data reviewed: radiologic studies, CT scan, plain films. [facility] 22:00 ED course: HEART SCORE = 1. ED course: Patient is alert an non toxic in appearance in [facility] the ED. Low risk of acs. EKG does not show signs of pericarditis. CT imaging negative for PE. Patient is encouraged to follow up with PCP or return to the ED if symptoms worsen. . 10/03 20:01 Order name: Basic Metabolic Panel [facility] 10/03 20:01 Order name: BNP; Complete Time: 21:45 [facility] 10/03 20:01 Order name: CBC with Diff; Complete Time: 20:51 [facility] 10/03 20:01 Order name: Ckmb; Complete Time: 21:45 [facility] 10/03 20:01 Order name: CPK; Complete Time: 21:45 [facility] 10/03 20:01 Order name: LFT's; Complete Time: 21:45 [facility] 10/03 20:01 Order name: Magnesium; Complete Time: 21:45 [facility] 10/03 20:01 Order name: PT-INR; Complete Time: 20:51 [facility] 10/03 20:01 Order name: Ptt, Activated; Complete Time: 20:51 [facility] 10/03 20:01 Order name: Troponin (emerg Dept Use Only); Complete Time: 21:45 [facility] 10/03 20:01 Order name: XRAY Chest (1 view); Complete Time: 21:45 [facility] 10/03 20:01 Order name: CT Chest For PE Angio; Complete Time: 21:45 [facility] 10/03 20:02 Order name: Basic Metabolic Panel; Complete Time: 21:45 [facility] 10/03 20:01 Order name: EKG; Complete Time: 20:02 [facility] 10/03 20:01 Order name: Cardiac monitoring; Complete Time: 20:03 [facility] 10/03 20:01 Order name: EKG - Nurse/Tech; Complete Time: 20:03 [facility] 10/03 20:01 Order name: IV Saline Lock; Complete Time: 20:04 [facility] 10/03 20:01 Order name: Labs collected and sent; Complete Time: 20:04 [facility] 10/03 20:01 Order name: O2 Per Protocol; Complete Time: 20:04 [facility] 10/03 20:01 Order name: O2 Sat Monitoring; Complete Time: 20:04 [facility] 10/03 20:01 Order name: Urine Dipstick-Ancillary (obtain specimen) [facility] Administered Medications: 20:47 Drug: NS 0.9% 1000 ml Route: IV; Rate: 1000 ml; Site: right antecubital; mb3 22:51 Follow up: Response: No adverse reaction; IV Status: Completed infusion; IV Intake: mb3 1000ml 21:57 Drug: Motrin 600 mg Route: PO; mb3 22:51 Follow up: Response: No adverse reaction mb3 22:51 Not Given (Patient Refused): NS 0.9% 1000 ml IV at 125 ml/hr continuous mb3 Disposition: 10/03/17 22:40 Discharged to Home. Impression: Other chest pain. - Condition is Stable. - Discharge Instructions: Nonspecific Chest Pain. - Prescriptions for gabapentin 300 mg Oral capsule - take 1 capsule by ORAL route 3 times per day; 30 capsule. - Medication Reconciliation Form, Thank You Letter, Antibiotic Education, Prescription Opioid Use, Work release form form. - Follow up: Tyra Isaac DO; When: As needed; Reason: Continuance of care. Follow up: Carlos A Saleh MD; When: As needed; Reason: Continuance of care. Addendum: 10/11/2017 11:57 Co-signature as Attending Physician, Lamin Schroeder MD. g s Signatures: Dispatcher [employer] EDHannah Portillo, RN RN Richard Marques MD MD cha Mickail, Joel, PA PA Lamin Love MD MD gs Barnett, Mark, RN RN mb3 Corrections: (The following items were deleted from the chart) 10/03 22:54 22:40 10/03/2017 22:40 Discharged to Home. Impression: Other chest pain. Condition is mb3 Stable. Forms are Medication Reconciliation Form, Thank You Letter, Antibiotic Education, Prescription Opioid Use. Follow up: Tyra Isaac; When: As needed; Reason: Continuance of care. Follow up: Carlos A Saleh; When: As needed; Reason: Continuance of care. [facility]
--- NOTE | 2017-10-03 22:41 | ER ---
Nurse's Notes [facility] Name: Lobito Pack Age: 26 yrs Sex: Male : 1990 Arrival Date: 10/03/2017 Time: 18:54 Bed 23 Private MD: Diagnosis: Other chest pain Presentation: 10/03 19:10 Presenting complaint: Patient states: Left side chest pain with deep breathing x 2 ch weeks, Also reports SOB. Patient seen in this ER for same complaint 2 weeks ago. Transition of care: patient was not received from another setting of care. Onset of symptoms was September 11, 2017. Risk Assessment: Do you want to hurt yourself or someone else? Patient reports no desire to harm self or others. Care prior to arrival: None. 19:10 Method Of Arrival: Ambulatory 19:10 Acuity: LEON 3 21:58 Initial Sepsis Screen: Does the patient meet any 2 criteria? No. Patient's initial mb3 sepsis screen is negative. Does the patient have a suspected source of infection? No. Patient's initial sepsis screen is negative. Triage Assessment: 19:12 General: Appears in no apparent distress. comfortable, Behavior is calm, cooperative, ch appropriate for age. General: Smells of alcohol. Pain: Complains of pain in anterior aspect of left upper chest, left lateral anterior chest and left breast. Neuro: Level of Consciousness is awake, alert, obeys commands, Oriented to person, place, time, situation, Appropriate for age. Respiratory: Reports shortness of breath Airway is patent Respiratory effort is even, unlabored, Respiratory pattern is regular, symmetrical, Breath sounds are clear in right upper lobe, left upper lobe, right middle lobe, right lower lobe, left posterior upper lobe, right posterior upper lobe, left posterior lower lobe and right posterior middle lobe Onset: The symptoms/episode began/occurred suddenly, the patient has mild shortness of breath. Derm: Skin is intact, is healthy with good turgor, Skin is pink, warm \T\ dry. normal. Historical: - Allergies: 19:12 Haldol; ch - Home Meds: 19:12 gabapentin 600 mg Oral tab 1 tab four times a day [Active]; Prednisone Oral [Active]; ch Remeron 15 mg Oral tab 1 tab once daily [Active]; - PMHx: 19:12 Alcoholism; Depression; Dystonic reaction to haldol; Lupus; Mixed connective tissue ch disease; pericarditis; Rheumatoid Arthritis; suicidal ideation; - PSHx: 19:12 None; ch - Immunization history:: Adult Immunizations up to date. - Social history:: Smoking status: Patient uses tobacco products, smokes one-half pack cigarettes per day. - Ebola Screening: : Patient negative for fever greater than or equal to 101.5 degrees Fahrenheit, and additional compatible Ebola Virus Disease symptoms Patient denies exposure to infectious person Patient denies travel to an Ebola-affected area in the 21 days before illness onset No symptoms or risks identified at this time. Screenin:55 Abuse screen: Denies threats or abuse. Nutritional screening: No deficits noted. mb3 Tuberculosis screening: No symptoms or risk factors identified. Fall Risk None identified. Assessment: 20:51 General: Appears in no apparent distress. comfortable, Behavior is calm, cooperative, mb3 appropriate for age. Pain: Complains of pain in anterior aspect of left upper chest, left lateral posterior chest and left breast Pain radiates to left arm. Neuro: Level of Consciousness is awake, alert, obeys commands. Cardiovascular: Reports shortness of breath, upon excersion Denies lightheadedness, nausea, palpitations, Heart tones present Capillary refill < 3 seconds Patient's skin is warm and dry. Pulses are palpable in right radial artery, right dorsalis pedis artery, left radial artery and left dorsalis pedis artery Rhythm is sinus rhythm. Respiratory: Airway is patent Respiratory effort is even, unlabored, Respiratory pattern is regular, symmetrical, Breath sounds are clear bilaterally. Parent/caregiver reports the patient having pain with respiration since 3 days ago, exertion makes the pain worse. GI: No signs and/or symptoms were reported involving the gastrointestinal system. Abdomen is flat, Bowel sounds present X 4 quads. Abd is soft and non tender. : No deficits noted. Derm: No deficits noted. Musculoskeletal: No deficits noted. No signs and/or symptoms reported regarding the musculoskeletal system. 21:58 Reassessment: Patient appears in no apparent distress at this time. No changes from mb3 previously documented assessment. Patient and/or family updated on plan of care and expected duration. Pain level reassessed. Patient is alert, oriented x 3, equal unlabored respirations, skin warm/dry/pink. Vital Signs: 19:12 BP 130 / 74; Pulse 124; Resp 16; Temp 98.2; Pulse Ox 99% on R/A; Weight 90.72 kg; ch Height 5 ft. 10 in. (177.80 cm); 21:11 BP 127 / 81; Pulse 105; Resp 18; Pulse Ox 97% on R/A; mb3 21:57 BP 128 / 82; Pulse 112; Resp 20; Pulse Ox 97% on R/A; mb3 19:12 Body Mass Index 28.70 (90.72 kg, 177.80 cm) ED Course: 18:54 Patient arrived in ED. as 19:11 Triage completed. ch 19:12 Arm band placed on left wrist. Patient placed in an exam room. 19:26 EKG done, by ED staff, reviewed by Richard Delatorre MD. ed1 19:39 Slade Herrera PA is PHCP. m 19:39 Lamin Schroeder MD is Attending Physician. m 19:40 Bhanu Urban, RONA is Primary Nurse. mb3 19:40 Inserted saline lock: 20 gauge in right antecubital area, using aseptic technique. mb3 Blood collected. 19:55 telemetry monitor on. Pulse ox on. NIBP on. mb3 20:05 Patient has correct armband on for positive identification. Placed in gown. Bed in low mb3 position. Call light in reach. Side rails up X 1. 20:07 Radiology exam delayed due to lab results not completed at this time. (BUN/Creatinine). kw1 20:25 X-ray completed. Portable x-ray completed in exam room. Patient tolerated procedure mh1 well. 20:26 XRAY Chest (1 view) In Process Unspecified. EDMS 21:[address] via wheelchair. vm2 21:18 CT completed. Patient tolerated procedure well. Patient moved back from CT. vm2 21:19 CT Chest For PE Angio In Process Unspecified. EDMS 21:58 Diet: Patient given snack. mb3 22:40 Tyra Isaac DO is Referral Physician. jmm 22:40 Carlos A Saleh MD is Referral Physician. jmm 22:53 No provider procedures requiring assistance completed. IV discontinued, intact, mb3 bleeding controlled, No redness/swelling at site. Pressure dressing applied. Administered Medications: 20:47 Drug: NS 0.9% 1000 ml Route: IV; Rate: 1000 ml; Site: right antecubital; mb3 22:51 Follow up: Response: No adverse reaction; IV Status: Completed infusion; IV Intake: mb3 1000ml 21:57 Drug: Motrin 600 mg Route: PO; mb3 22:51 Follow up: Response: No adverse reaction mb3 22:51 Not Given (Patient Refused): NS 0.9% 1000 ml IV at 125 ml/hr continuous mb3 Intake: 22:51 IV: 1000ml; Total: 1000ml. mb3 Outcome: 22:40 Discharge ordered by . eduarda 22:52 Discharged to home ambulatory. mb3 22:52 Condition: stable 22:52 Discharge instructions given to patient, Instructed on discharge instructions, follow up and referral plans. medication usage, Demonstrated understanding of instructions, follow-up care, medications, Prescriptions given X 1. 22:54 Patient left the ED. mb3 Signatures: Dispatcher [employer] EDMS Hannah Altman, RN RN Slade Lofton PA PA jmm Harvey, Martha 1 Deandra Plasencia Erika, [employer] ed1 Selena Talley 2 Gosia Canela 1 Bhanu Urban, RN RN mb3 Corrections: (The following items were deleted from the chart) 19:13 19:10 Presenting complaint: Patient states: Left side chest pain with deep breathing x ch 2 weeks, Also reports SOB.
--- NOTE | 2017-10-04 07:21 | EKG ---
Test Date: 2017-10-03 Test Time: 19:22:56 Binder Sorter: ANGIE MEASUREMENT RESULTS: Intervals: Rate: 112 SD: 134 QRSD: 94 QT: 320 QTc: 436 [place]: P: 65 SD: 134 QRS: 81 T: 54 INTERPRETIVE STATEMENTS: Sinus tachycardia Nonspecific T wave abnormality Abnormal ECG Compared to ECG 09/22/2017 01:29:29 T-wave abnormality now present Sinus rhythm no longer present Electronically Signed On 10-04-17 07:19:40 CDT by Julio C Robledo
== END 2017-10-03 22:54 | disposition home or self-care (01) ==
LOC: ER 18:50
DX: R07.89 Other chest pain (principal); F32.9 Major depressive disorder, single episode, unspecified; F10.20 Alcohol dependence, uncomplicated; F17.210 Nicotine dependence, cigarettes, uncomplicated; Z88.5 Allergy status to narcotic agent
CPT/HCPCS: 36415; 71045; 71275; 80048; 80076; 82550; 82553; 83735; 83880; 84484; 85025; 85610; 85730; 93005; 96360; 96361; 99285; J7030; Q9967